=== PATIENT | female | born 1930 | race Caucasian/White ===

== ENCOUNTER 2016-12-31 21:17 | Emergency (ER) | payer MEDICARE, OTHER ==
[~2016-12-31] VITALS: Ht 154.9 cm; Wt 63.5 kg
[2016-12-31 21:17] VITALS: BP 163/62
[~2016-12-31 21:17] MED LIST: ASPI325T8 PO; METO25TA4 PO; OMEP40CA5 PO
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
[2016-12-31 21:58] LABS: BASO % 1 % (0-3); EOS # 0.2 x10^3/uL (0.0-0.7); EOS % 4 % (0-3); HEMATOCRIT 39.1 % (36.0-47.0); HEMOGLOBIN 13.7 g/dL (12.0-15.5); LYMPH # 1.8 x10^3/uL (1.0-4.8); LYMPH % 28 % (24-48); MEAN CORPUSCULAR HEMOGLOBIN 35 pg (25-35); MEAN CORPUSCULAR HGB CONC 35 g/dL (31-37); MEAN CORPUSCULAR VOLUME 99 fL (79-100); MONO # 0.5 x10^3/uL (0.0-1.1); MONO % 8 % (0-9); NEUT # 3.9 x10^3uL (1.8-7.7); NEUT % 60 % (31-73); PLATELET COUNT 149 x10^3/uL (140-400); RED BLOOD COUNT 3.96 x10^6/uL (3.50-5.40); RED CELL DISTRIBUTION WIDTH 13.3 % (11.5-14.5); WHITE BLOOD COUNT 6.4 x10^3/uL (4.0-11.0)
[2016-12-31 22:20] LABS: ALBUMIN 3.7 g/dL (3.4-5.0); ALBUMIN/GLOBULIN RATIO 1.3 (1.0-1.7); CALCIUM 9.4 mg/dL (8.5-10.1); DIRECT BILIRUBIN 0.2 mg/dL (0.0-0.2); GFR 52.8; POTASSIUM 3.6 mmol/L (3.5-5.1); TOTAL BILIRUBIN 0.5 mg/dL (0.2-1.0); TOTAL PROTEIN 6.6 g/dL (6.4-8.2)
[2016-12-31 22:39] LABS: BARBITURATES NEG (NEG); BENZODIAZEPINES NEG (NEG); CANNABINOIDS NEG (NEG); COCAINE NEG (NEG); METHADONE NEG (NEG); OPIATES NEG (NEG); PHENCYCLIDINE NEG (NEG)
[2016-12-31 22:40] LABS: AMPHETAMINE/METHAMPHETAMINE NEG (NEG)
--- NOTE | 2016-12-31 22:42 | RAD ---
Examination: CT head and cervical spine without contrast HISTORY: History of recent falls, cerebrovascular accident COMPARISON: None available TECHNIQUE: Axial CT images of the head was performed without contrast. Axial CT images of the cervical spine were performed without contrast. Coronal and sagittal deformities of the cervical spine were performed In addition to direct observation, computer aided detection was utilized with iCAD Second Look 7.2-H. distended FINDINGS: There is no evidence of midline shift. There is no acute intracranial bleed or extra-axial fluid collection identified. Moderate bilateral periventricular white matter hypodensities likely chronic small vessel ischemic disease There is a linear hypodensity identified in the right frontal lobe in the right parasagittal region, age indeterminate infarct. There is subtle serpiginous hyperdensity identified along the gyrus of the right frontal lobe adjacent to the hypodensity, possibly thin appearing freitas matter due to adjacent hypodensity. The basal cisterns are uneffaced. The visualized paranasal sinuses, left mastoid air cells are clear. Surgical changes identified in the right mastoid The cervical vertebral body heights are maintained the bilateral facets are maintained Moderate intervertebral disc height loss identified at C5-C6, C6-C7 vertebral levels No evidence of prevertebral soft tissue swelling identified. The apical lungs are clear. IMPRESSION: 1.Linear hypodensity identified in the right frontal lobe in the right parasagittal region, age indeterminate infarct. Recommend follow-up MRI brain, if there is clinical concern for infarct. 2. No acute fracture cervical spine. Correlate clinically. 3. Moderate degenerative changes cervical spine. Electronically signed by: Ashvin Martin MD (12/31/2016 10:39 PM) [facility]
[2016-12-31] MEDS ORDERED: RESOURCE PO (22:45)
[2016-12-31] MEDS ORDERED: ATORVASTATIN CA80 MG PO (22:45)
[2016-12-31] MEDS ORDERED: DONE5TAB56 PO (22:45)
[2016-12-31] MEDS ORDERED: HALO5AMP2 IM (22:45)
[2016-12-31] MEDS ORDERED: AMLO2.5T2 PO (22:45)
[2016-12-31] MEDS ORDERED: POLY119P4 PO (22:45)
[2016-12-31 22:52] LABS: BILIRUBIN,URINE NEG (NEG); CLARITY,URINE HAZY; COLOR,URINE YELLOW; GLUCOSE,URINE NEG (NEG)
[2016-12-31 22:53] LABS: AMORPHOUS SEDIMENT,UR PRESENT /HPF; BACTERIA,URINE MANY /HPF (0-FEW); NITRITE,URINE NEG (NEG); RBC,URINE 20-40 /HPF (0-2); SQUAMOUS EPITHELIAL CELL,UR FEW /LPF; UROBILINOGEN,URINE 4 mg/dL (0.2 mg/dL)
[2016-12-31] MEDS ORDERED: CEPHALEXIN 250 MG CAPSULE PO ONE (23:15)
[2016-12-31] MEDS ORDERED: ASPIRIN 325 MG TABLET PO ONE (23:15)
[2017-01-01] MEDS ORDERED: WARFARIN 5 MG TABLET. PO ONE
[2017-01-01] MEDS ORDERED: ENOXAPARIN 40 MG/0.4 ML DISP.SYRIN. SQ ONE
[2017-01-01] MEDS ORDERED: WARF1TAB74 PO (00:04)
--- NOTE | 2017-01-01 06:29 | EKG ---
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
--- NOTE | 2017-01-01 08:09 | RAD ---
Portable chest, 12/31/2016: History: Fall Comparison is made to a study from 04/18/2006. The heart size and pulmonary vascularity are normal. There is calcific plaquing of the aorta. No pulmonary infiltrates are seen. There is no evidence of pleural fluid. IMPRESSION: No acute cardiopulmonary abnormality is detected.
== END 2017-01-01 01:25 | disposition home or self-care (01) ==
LOC: ER 21:17
DX: R41.82 Altered mental status, unspecified (principal); F98.9 Unspecified behavioral and emotional disorders with onset usually occurring in childhood and adolescence; N39.0 Urinary tract infection, site not specified; F03.90 Unspecified dementia, unspecified severity, without behavioral disturbance, psychotic disturbance, mood disturbance, and anxiety; I25.10 Atherosclerotic heart disease of native coronary artery without angina pectoris; I48.91 Unspecified atrial fibrillation; I69.359 Hemiplegia and hemiparesis following cerebral infarction affecting unspecified side; K21.9 Gastro-esophageal reflux disease without esophagitis; R79.1 Abnormal coagulation profile
CPT/HCPCS: 36415; 70450; 71010; 72125; 80053; 80076; 80307; 81001; 83690; 83735; 83880; 84443; 84484; 85025; 85610; 85730; 87086; 93005; 96372; 99285; J1650; G0479

== ENCOUNTER 2017-01-17 21:42 | Emergency (ER) | payer MEDICARE, OTHER ==
[~2017-01-17] VITALS: Ht 165.1 cm; Wt 62.6 kg
[~2017-01-17 21:42] MED LIST changes: +AMLO2.5T2 PO; +ATORVASTATIN CA80 MG PO; +DONE5TAB56 PO; +HALO5AMP2 IM; +POLY119P4 PO; +RESOURCE PO; +WARF1TAB74 PO
--- NOTE | 2017-01-17 22:06 | RAD ---
CT head without contrast dated 01/17/2017 9:57 PM Indication: Left facial weakness. Left facial weakness. Comparison: 12/31/2016. Technique: Contiguous axial imaging the head performed from skull base to vertex. One or more of the following individualized dose reduction techniques were utilized for this examination: 1. Automated exposure control 2. Adjustment of the mA and/or kV according to patient size 3. Use of iterative reconstruction technique Findings: Ventricles and sulci are mildly prominent for age. No midline shift or mass effect. Focal zone of low density at the parasagittal inferior right frontal lobe is similar to prior study. Mild patchy low density throughout the deep/subcortical periventricular white matter, unchanged. No hemorrhage or extra-axial collection. Posterior fossa and brainstem unremarkable. Visualized paranasal sinuses and mastoid air cells are clear. There is evidence of prior mastoidectomy on the right. No acute calvarial abnormality. IMPRESSION: 1. No evidence of acute intracranial hemorrhage or mass. 2. Evolving cortical infarct of the parasagittal right frontal lobe. 3. Mild chronic small vessel ischemic changes and atrophy. 4. No CT evidence of acute CVA. If there is persistent clinical concern for evolving infarct, MRI could better evaluate. Electronically signed by: Bobby Galvan MD (01/17/2017 10:03 PM) [facility]
[2017-01-17] MEDS ORDERED: CONTRAST GIVEN MC PRN (22:15)
[2017-01-17] MEDS ORDERED: IOHEXOL 300 MG/ML 75 ML VIAL. IV ONE (22:15)
[2017-01-17 22:25] LABS: BASO % 1 % (0-3); EOS # 0.2 x10^3/uL (0.0-0.7); EOS % 4 % (0-3); HEMATOCRIT 34.4 % (36.0-47.0); HEMOGLOBIN 12.4 g/dL (12.0-15.5); LYMPH # 1.4 x10^3/uL (1.0-4.8); LYMPH % 29 % (24-48); MEAN CORPUSCULAR HEMOGLOBIN 35 pg (25-35); MEAN CORPUSCULAR HGB CONC 36 g/dL (31-37); MEAN CORPUSCULAR VOLUME 97 fL (79-100); MONO # 0.4 x10^3/uL (0.0-1.1); MONO % 7 % (0-9); NEUT % 60 % (31-73); PLATELET COUNT 120 x10^3/uL (140-400); RED BLOOD COUNT 3.54 x10^6/uL (3.50-5.40); RED CELL DISTRIBUTION WIDTH 13.1 % (11.5-14.5)
[2017-01-17 22:43] LABS: BILIRUBIN,URINE NEG (NEG); CLARITY,URINE HAZY; COLOR,URINE YELLOW; GLUCOSE,URINE NEG (NEG); NITRITE,URINE NEG (NEG)
[2017-01-17 22:43] LABS: ALBUMIN 3.6 g/dL (3.4-5.0); CREATININE 0.9 mg/dL (0.6-1.0); DIRECT BILIRUBIN 0.1 mg/dL (0.0-0.2); GFR 59.7; POTASSIUM 3.6 mmol/L (3.5-5.1); TOTAL BILIRUBIN 0.4 mg/dL (0.2-1.0); TOTAL PROTEIN 6.3 g/dL (6.4-8.2)
[2017-01-17 22:44] LABS: BACTERIA,URINE 0 /HPF (0-FEW); SQUAMOUS EPITHELIAL CELL,UR MANY /LPF; UROBILINOGEN,URINE 2 mg/dL (0.2 mg/dL)
[2017-01-17 23:10] VITALS: BP 172/67
--- NOTE | 2017-01-17 23:38 | RAD ---
INDICATION: FACIAL ASYMETRY COMPARISON: CT head from earlier same day and December 31, 2016 TECHNIQUE: Axial CT images obtained through the head and neck arterial vasculature with intravenous contrast. Three-dimensional images process per protocol. Estimates of carotid stenosis based on criteria that correlate with NASCET. One or more of the following individualized dose reduction techniques were utilized for this examination: 1. Automated exposure control; 2. Adjustment of the mA and/or kV according to patient size; 3. Use of iterative reconstruction technique. FINDINGS: Neck angiography: Left vertebral artery is patent. Right vertebral artery is patent. Left common carotid arteries patent. Left internal carotid artery and proximal external carotid artery patent. There is regions of plaque including at the left carotid bulb. Right internal carotid artery patent. Right common carotid artery patent with some plaque seen at the bulb. Proximal right external carotid arteries patent. Brain angiography: Basilar artery is patent. There is a suspected region of narrowing at the proximal left DRUG ABUSE TECHNICIAN of approximately 50 percent. There are other suspected regions of narrowing within the left DRUG ABUSE TECHNICIAN with some of them possibly greater than 50 percent but difficult evaluation given the small size the vessel. The right DRUG ABUSE TECHNICIAN is predominantly fed through the [place] from right MCA territory. The right proximal DRUG ABUSE TECHNICIAN appears to have vascular flow within fed from the basilar artery with either atresia or occlusion of the vessel proximally. The distal portion of the vessel is fed either from right DRUG ABUSE TECHNICIAN or collateral formation. Proximal left MCA is patent. Proximal right MCA patent. There are some regions of plaque within the right MCA with less than 50 percent stenosis. Occlusion or high-grade stenosis of the right anterior cerebral artery proximally with some trickle of flow seen more distally. Other findings: Repeat demonstration of low-attenuation within the right frontal region. Probable mucocele or polyp left maxillary sinus. There are multiple nodules at the lung apices bilaterally measuring up to about 5 mm. There are some subcentimeter right lobe of thyroid nodules. Degenerative changes of the spine. Resection or automastoidectomy changes on the right. IMPRESSION: Repeat demonstration of a region of low-attenuation within the right frontal region which can be seen with a stroke in evolution. Within this region there is either focal occlusion or multifocal regions of high grade stenosis of the right anterior cerebral artery. The right posterior cerebral artery territory is predominantly fed through the [place] which could be secondary to atresia of the proximal aspect of the right posterior cerebral artery with origin of right DRUG ABUSE TECHNICIAN although it is also possible that this is secondary to collateral flow to the right DRUG ABUSE TECHNICIAN territory from occlusion of the proximal aspect of the right DRUG ABUSE TECHNICIAN of unknown age. MRI could better evaluate for acuity of these findings. There are couple of right lobe of thyroid nodules. Ultrasound could better evaluate if more complete characterization is desired. There are couple of lung nodules at the apices measuring up to about 5 mm. Multifocal plaque throughout the vessels. Fleischner Society recommendations for solitary solid lung nodule follow up.: In a low risk patient: <6mm - No follow up required. 6-8mm - 6-[address], then CT at 18-24 months. >8mm - CT at 3 months, PET/CT or tissue sampling. In a high risk patient (history of smoking or other known risk factors): <6mm - Follow up CT at 12 months. 6-8mm - 6-[address], then CT at 18-24 months. >8mm - CT at 3 months, PET/CT or tissue sampling. Fleischner Society recommendations for multiple solid lung nodule follow up.: In a low risk patient: <6mm - No follow up required. 6-8mm - 3-[address], then CT at 18-24 months. >8mm - CT at 3-6 months, then at 18-24 months. PET/CT or tissue sampling based on most suspicious nodule. In a high risk patient (history of smoking or other known risk factors): <6mm - Follow up CT at 12 months. 6-8mm - 3-[address], then CT at 18-24 months. >8mm - CT at 3-6 months, PET/CT or tissue sampling option based on most suspicious nodule.. Electronically signed by: Satish Hardy MD (01/17/2017 11:35 PM) [facility]
--- NOTE | 2017-01-18 02:44 | PHYS DOC ---
Past History Past Medical History: A-Fib, CAD, CVA, Dementia, Depression, GERD, High Cholesterol, Hypertension, UTI, Other Past Surgical History: Other Smoking: Non-smoker Alcohol Use: None Drug Use: None Adult General Chief Complaint Chief Complaint: FACE PROBLEM HPI HPI 86-year-old female presenting to the emergency department after family noticed the patient smile was noticed to be asymmetric. This started around 8 PM. Her family brings her in. Last known normal at 8 PM. Patient just recently stopped taking warfarin and began taking Eliquis and is currently anticoagulated. She denies vision changes or weakness of the upper or lower extremities. She denies slurred speech. Location face. Duration constant. No alleviating or exacerbating factors present. The patient does have a history of strokes. Review of systems is negative for chest pain shortness of breath abdominal pain nausea vomiting fevers or chills. All other review of systems is negative unless otherwise noted in history of present illness. ED course: 86-year-old female presenting to the emergency department today with facial asymmetry. Code stroke initiated immediately. Head CT along with CT angiography ordered. Blood work and urinalysis. EKG obtained. NIH stroke scale obtained and calculated to be 1 based on slight facial asymmetry. Otherwise the patient is neurologically intact. TPA administration not initiated due to the patient currently being on anticoagulants including recently stopping warfarin but currently taking Eliquis. Patient reports taking it this morning. Otherwise workup was unremarkable. I discussed the case with [facility] neurologist and transferring doctor Dr. Diop. They agree with not administering TPA. CT of the head was suggestive of evolving cortical stroke. Angiography shows possible INTERNAL [employer]OLS CONSULTANT occlusion versus anomaly and possible focal occlusion of the right anterior cerebral artery. The patient was then transferred to [facility] for further stroke care. Review of Systems Review of Systems SEE ABOVE Current Medications Current Medications Current Medications Medications (Trade) Dose Ordered Sig/Willa Start Time Stop Time Status Last Admin Dose Admin Info (Do NOT chart on this entry -- for MONITORING) 1 each PRN DAILY PRN 01/17/17 22:15 01/18/17 01:15 DC Iohexol (Omnipaque 300 Mg/ml) 75 ml 1X ONCE 01/17/17 22:15 01/17/17 22:16 DC 01/17/17 22:28 60 ML Allergies Allergies Allergies Coded Allergies Type Severity Reaction Last Updated Verified No Known Drug Allergies 4/19/14 No Physical Exam Physical Exam Constitutional: Well developed, well nourished, no acute distress, non-toxic appearance. [] HENT: Normocephalic, atraumatic, bilateral external ears normal, oropharynx moist, no oral exudates, nose normal. [] Eyes: PERRLA, EOMI, conjunctiva normal, no discharge. [] Neck: Normal range of motion, no tenderness, supple, no stridor. [] Cardiovascular:Heart rate regular rhythm, no murmur [] Lungs & Thorax: Bilateral breath sounds clear to auscultation [] Abdomen: Bowel sounds normal, soft, no tenderness, no masses, no pulsatile masses. [] Skin: Warm, dry, no erythema, no rash. [] Back: No tenderness, no CVA tenderness. [] Extremities: No tenderness, no cyanosis, no clubbing, ROM intact, no edema. [] Neurologic: Mental status: Awake oriented and alert x3 Cranial nerves: Extraocular movements intact, eyebrows viviana bilaterally smile shows mild asymmetry but pt is able to raise eyebrows, uvula elevation, shoulder shrug intact, tongue protrusion normal DTRs: 2+ Sensation: equal and normal in all extremities Strength: 5/5 in upper and lower extremities bilaterally Psychologic: Affect normal, judgement normal, mood normal. [] Current Patient Data Vital Signs Vital Signs Date Time Temp Pulse Resp B/P (MAP) Pulse Ox O2 Delivery O2 Flow Rate FiO2 01/17/17 23:10 59 20 172/67 (102) 97 Room Air 01/17/17 21:45 98.3 Lab Results Laboratory Tests Test 01/17/17 21:50 01/17/17 22:05 Urine Collection Type Unknown Urine Color Yellow Urine Clarity Hazy Urine pH 6.5 Urine Specific [place] 1.025 Urine Protein Neg (NEG-TRACE) Urine Glucose (UA) Neg mg/dL (NEG) Urine Ketones (Stick) Neg mg/dL (NEG) Urine Blood Trace (NEG) Urine Nitrite Neg (NEG) Urine Bilirubin Neg (NEG) Urine Urobilinogen Dipstick 2 mg/dL (0.2 mg/dL) Urine Leukocyte Esterase Trace (NEG) Urine RBC 6-10 /HPF (0-2) Urine WBC 11-20 /HPF (0-4) Urine Squamous Epithelial Cells Many /LPF Urine Bacteria 0 /HPF (0-FEW) Urine Mucus Marked /LPF White Blood Count 5.0 x10^3/uL (4.0-11.0) Red Blood Count 3.54 x10^6/uL (3.50-5.40) Hemoglobin 12.4 g/dL (12.0-15.5) Hematocrit 34.4 % (36.0-47.0) L Mean Corpuscular Volume 97 fL (79-100) Mean Corpuscular Hemoglobin 35 pg (25-35) Mean Corpuscular Hemoglobin Concent 36 g/dL (31-37) Red Cell Distribution Width 13.1 % (11.5-14.5) Platelet Count 120 x10^3/uL (140-400) L Neutrophils (%) (Auto) 60 % (31-73) Lymphocytes (%) (Auto) 29 % (24-48) Monocytes (%) (Auto) 7 % (0-9) Eosinophils (%) (Auto) 4 % (0-3) H Basophils (%) (Auto) 1 % (0-3) Neutrophils # (Auto) 3.0 x10^3uL (1.8-7.7) Lymphocytes # (Auto) 1.4 x10^3/uL (1.0-4.8) Monocytes # (Auto) 0.4 x10^3/uL (0.0-1.1) Eosinophils # (Auto) 0.2 x10^3/uL (0.0-0.7) Basophils # (Auto) 0.0 x10^3/uL (0.0-0.2) Prothrombin Time 11.0 SEC (9.4-11.4) Prothrombin Time INR 1.1 (0.9-1.1) PTT 25 SEC (23-33) Sodium Level 146 mmol/L (136-145) H Potassium Level 3.6 mmol/L (3.5-5.1) Chloride Level 110 mmol/L (98-107) H Carbon Dioxide Level 30 mmol/L (21-32) Anion Gap 6 (6-14) Blood Urea Nitrogen 18 mg/dL (7-20) Creatinine 0.9 mg/dL (0.6-1.0) Estimated GFR (Cockcroft-Gault) 59.7 Glucose Level 117 mg/dL (70-99) H Lactic Acid Level 1.1 mmol/L (0.4-2.0) Calcium Level 9.0 mg/dL (8.5-10.1) Total Bilirubin 0.4 mg/dL (0.2-1.0) Direct Bilirubin 0.1 mg/dL (0.0-0.2) Aspartate Amino Transferase (AST) 23 U/L (15-37) Alanine Aminotransferase (ALT) 38 U/L (14-59) Alkaline Phosphatase 90 U/L (46-116) Troponin I Quantitative < 0.017 ng/mL (0-0.055) QO-Wap-L-Type Natriuretic Peptide 424 pg/mL (0-449) Total Protein 6.3 g/dL (6.4-8.2) L Albumin 3.6 g/dL (3.4-5.0) Lipase 191 U/L (73-393) EKG EKG [] Radiology/Procedures Radiology/Procedures [] Course & Med Decision Making Course & Med Decision Making Pertinent Labs and Imaging studies reviewed. (See chart for details) [] Dragon Disclaimer Dragon Disclaimer This chart was dictated in whole or in part using Voice Recognition software in a busy, high-work load, and often noisy Emergency Department environment. It may contain unintended and wholly unrecognized errors or omissions. Departure Departure: Impression: Primary Impression: Cerebrovascular accident (CVA) involving anterior circulation ... Disposition: XFER SHT-TRM HOSP Condition: GUARDED CHANDRAKANT AKHTAR MD Jan 18, 2017 02:44
--- NOTE | 2017-01-18 06:21 | EKG ---
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
== END 2017-01-18 01:13 | disposition short-term general hospital (02) ==
LOC: ER 21:42
DX: I63.8 Other cerebral infarction (principal); E78.00 Pure hypercholesterolemia, unspecified; I10 Essential (primary) hypertension; I25.10 Atherosclerotic heart disease of native coronary artery without angina pectoris; K21.9 Gastro-esophageal reflux disease without esophagitis; I48.91 Unspecified atrial fibrillation; F03.90 Unspecified dementia, unspecified severity, without behavioral disturbance, psychotic disturbance, mood disturbance, and anxiety; Z86.73 Personal history of transient ischemic attack (TIA), and cerebral infarction without residual deficits
CPT/HCPCS: 36415; 70450; 70496; 70498; 80048; 80076; 81001; 83605; 83690; 83880; 84484; 85025; 85610; 85730; 87086; 93005; 99285; Q9967

== ENCOUNTER 2017-02-17 16:10 | Emergency (ER) | payer MEDICARE, OTHER ==
[~2017-02-17] VITALS: Ht 165.1 cm; Wt 54.4 kg
--- NOTE | 2017-02-17 16:55 | RAD ---
Examination: PA view of the chest with left RIBS History: History of fall, bruising, history of rib fracture Comparison: None available Findings: The cardiomediastinal silhouette grossly appears unremarkable. There is no acute infiltrate or pneumothorax. No evidence of displaced left rib identified. Impression: 1. No acute cardiopulmonary findings. No evidence of displaced rib fracture.
[2017-02-17] MEDS ORDERED: traMADol/APAP 37.5/325 1 TAB TABLET PO ONE (17:00)
[2017-02-17] MEDS ORDERED: TRAM50TA PO (17:01)
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
[2017-02-17 17:15] VITALS: BP 152/67
== END 2017-02-17 17:20 | disposition home or self-care (01) ==
LOC: ER 16:10
DX: S30.1XXA Contusion of abdominal wall, initial encounter (principal); S20.212A Contusion of left front wall of thorax, initial encounter; I48.2 Chronic atrial fibrillation; I25.10 Atherosclerotic heart disease of native coronary artery without angina pectoris; K21.9 Gastro-esophageal reflux disease without esophagitis; E78.00 Pure hypercholesterolemia, unspecified; I10 Essential (primary) hypertension; I25.2 Old myocardial infarction; F03.90 Unspecified dementia, unspecified severity, without behavioral disturbance, psychotic disturbance, mood disturbance, and anxiety; F32.9 Major depressive disorder, single episode, unspecified; Z86.73 Personal history of transient ischemic attack (TIA), and cerebral infarction without residual deficits; Z79.01 Long term (current) use of anticoagulants; W06.XXXA Fall from bed, initial encounter; Y93.89 Activity, other specified; Y99.8 Other external cause status; Y92.008 Other place in unspecified non-institutional (private) residence as the place of occurrence of the external cause
CPT/HCPCS: 71101; 99284

== ENCOUNTER 2017-06-06 14:52 | Inpatient (IN) | payer MEDICARE, OTHER ==
[~2017-06-06] VITALS: Ht 165.1 cm; Wt 70.3 kg
[~2017-06-06 14:52] MED LIST changes: +TRAM50TA PO
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
[2017-06-06 17:07] LABS: BASO % 1 % (0-3); EOS # 0.1 x10^3/uL (0.0-0.7); EOS % 1 % (0-3); HEMATOCRIT 40.6 % (36.0-47.0); HEMOGLOBIN 13.8 g/dL (12.0-15.5); LYMPH # 0.9 x10^3/uL (1.0-4.8); LYMPH % 15 % (24-48); MEAN CORPUSCULAR HEMOGLOBIN 34 pg (25-35); MEAN CORPUSCULAR HGB CONC 34 g/dL (31-37); MEAN CORPUSCULAR VOLUME 99 fL (79-100); MONO # 0.4 x10^3/uL (0.0-1.1); MONO % 7 % (0-9); NEUT # 4.7 x10^3uL (1.8-7.7); NEUT % 76 % (31-73); PLATELET COUNT 133 x10^3/uL (140-400); RED BLOOD COUNT 4.09 x10^6/uL (3.50-5.40); RED CELL DISTRIBUTION WIDTH 13.5 % (11.5-14.5); WHITE BLOOD COUNT 6.2 x10^3/uL (4.0-11.0)
[2017-06-06 17:21] LABS: ALBUMIN 3.9 g/dL (3.4-5.0); ALBUMIN/GLOBULIN RATIO 1.3 (1.0-1.7); CALCIUM 9.2 mg/dL (8.5-10.1); GFR 52.8; POTASSIUM 3.4 mmol/L (3.5-5.1); TOTAL BILIRUBIN 0.4 mg/dL (0.2-1.0)
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
[2017-06-06 17:40] LABS: BILIRUBIN,URINE NEG (NEG); CLARITY,URINE CLEAR; COLOR,URINE YELLOW; GLUCOSE,URINE NEG (NEG); NITRITE,URINE NEG (NEG); UROBILINOGEN,URINE 0.2 mg/dL (0.2 mg/dL)
[2017-06-06 17:41] LABS: BACTERIA,URINE FEW /HPF (0-FEW); SQUAMOUS EPITHELIAL CELL,UR MANY /LPF
[2017-06-06] MEDS ORDERED: OMEG-33 PO (23:23)
[2017-06-06] MEDS ORDERED: ATOR40TA59 PO (23:23)
[2017-06-07 01:00] VITALS: BP 180/88
[2017-06-07 06:03] VITALS: BP 140/44
[2017-06-07] MEDS ORDERED: OMEG-33 PO (08:24)
[2017-06-07 08:32] VITALS: BP 180/80
[2017-06-07] MEDS: METOPROLOL TART IMMED RELEASE 25 MG TABLET PO SCH ×2 (08:33→20:56)
[2017-06-07] MEDS ORDERED: amLODIPine BESYLATE 2.5 MG TABLET PO SCH (09:00)
[2017-06-07 10:07] VITALS: BP 137/69
[2017-06-07 14:24] LABS: THYROID STIM HORMONE (TSH) 1.016 uIU/mL (0.358-3.740)
[2017-06-07 16:32] VITALS: BP 180/65
[2017-06-07] MEDS: OMEGA-3 FATTY ACIDS/FISH OIL 1,000 MG CAPSULE. PO SCH (17:14)
[2017-06-07 17:50] VITALS: BP 142/80
[2017-06-07] MEDS: CHOLECALCIFEROL (VITAMIN D3) 50,000 UNIT CAPSULE PO SCH (20:58)
[2017-06-07] MEDS: ATORVASTATIN CALCIUM 20 MG TABLET PO SCH (20:58)
[2017-06-07 21:11] LABS: T3 TOTAL 96 ng/dL (71-180); THYROXINE 6.4 ug/dL (4.5-12.0)
--- NOTE | 2017-06-07 22:38 | PDOC ---
Exam Note: Santhosh Note: Please also refer to the separate dictated note~for this date of service dictated separately.~Patient seen individually. Discussed the patient with Nursing staff reviewed the chart.~Reviewed interim history and current functioning. Reviewed vital signs,~Labs/ Radiology~and current medications noted below. Continue current treatment with the changes noted in the dictated addendum note Assessment: Vital Signs: Vital Signs Date Time Temp Pulse Resp B/P (MAP) Pulse Ox O2 Delivery O2 Flow Rate FiO2 06/07/17 20:56 86 142/80 06/07/17 16:32 97.6 16 99 06/07/17 01:00 Room Air Labs: Laboratory Tests Test 06/07/17 01:40 Prothrombin Time 11.0 SEC (9.4-11.4) Prothrombin Time INR 1.1 (0.9-1.1) Current Medications: Meds: Current Medications Amlodipine Besylate (Norvasc) 2.5 mg DAILY PO Last administered on 06/07/17 08 :34; Start 06/07/17 at 09:00; Stop 06/07/17 at 18:17; Status DC Metoprolol Tartrate (Lopressor) 12.5 mg BID PO Last administered on 06/07/17at 20:56; Start 06/07/17 at 09:00 Atorvastatin Calcium (Lipitor) 40 mg QHS PO Last administered on 06/07/17at 20: 58; Start 06/07/17 at 21:00 Fish Oil (Fish Oil) 1,000 mg QPM PO Last administered on 06/07/17at 17:14; Start 06/07/17 at 18:00 Fish Oil (Fish Oil) 1,000 mg QODAY PO ; Start 06/09/17 at 09:00 Amlodipine Besylate (Norvasc) 5 mg DAILY PO ; Start 06/08/17 at 09:00 Vitamin D (Vitamin D3) 50,000 unit WEEKLY PO Last administered on 06/07/17at 20: 58; Start 06/07/17 at 19:00 Active Scripts Active Reported [place] 3 1,000 Mg Softgel ([place]-3 Fatty Acids/Fish Oil) 1 Each Capsule 1 Each PO QODAY [place] 3 1,000 Mg Softgel ([place]-3 Fatty Acids/Fish Oil) 1 Each Capsule 1,000 Mg PO QPM Atorvastatin Calcium 40 Mg Tablet 40 Mg PO QHS Norvasc (Amlodipine Besylate) 2.5 Mg Tablet 2.5 Mg PO DAILY Metoprolol Tartrate 25 Mg Tablet 12.5 Mg PO BID I have reviewed the current psychotropics carefully including drug interactions. Risk benefit ratio favors no change other than as noted in my dictated progress note. 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
[2017-06-08 02:08] LABS: HEMOGLOBIN A1C 5.3 % (4.8-5.6)
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
[2017-06-08 07:15] VITALS: BP 196/82
[2017-06-08] MEDS: amLODIPine BESYLATE 5 MG TABLET PO SCH (08:04)
[2017-06-08] MEDS: METOPROLOL TART IMMED RELEASE 25 MG TABLET PO SCH ×3 (08:04→21:00)
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
[2017-06-08 16:03] VITALS: BP 131/64
[2017-06-08] MEDS: OMEGA-3 FATTY ACIDS/FISH OIL 1,000 MG CAPSULE. PO SCH ×3 (18:02→19:54)
[2017-06-08] MEDS: ATORVASTATIN CALCIUM 20 MG TABLET PO SCH ×2 (19:54→21:00)
[2017-06-08] MEDS: QUEtiapine 25 MG TABLET. PO SCH ×2 (19:58→21:00)
--- NOTE | 2017-06-08 20:12 | PDOC ---
Exam Note: Santhosh Note: Please also refer to the separate dictated note~for this date of service dictated separately.~Patient seen individually. Discussed the patient with Nursing staff reviewed the chart.~Reviewed interim history and current functioning. Reviewed vital signs,~Labs/ Radiology~and current medications noted below. Continue current treatment with the changes noted in the dictated addendum note Assessment: Vital Signs: Vital Signs Date Time Temp Pulse Resp B/P (MAP) Pulse Ox O2 Delivery O2 Flow Rate FiO2 06/08/17 19:55 66 131/64 06/08/17 16:03 98.1 18 98 06/08/17 07:15 Room Air I&O Intake and Output 06/08/17 07:00 Intake Total 1200 ml Balance 1200 ml Intake Oral 1200 ml Current Medications: Meds: Current Medications Amlodipine Besylate (Norvasc) 2.5 mg DAILY PO Last administered on 06/07/17 08 :34; Start 06/07/17 at 09:00; Stop 06/07/17 at 18:17; Status DC Metoprolol Tartrate (Lopressor) 12.5 mg BID PO Last administered on 06/08/17at 19:55; Start 06/07/17 at 09:00 Atorvastatin Calcium (Lipitor) 40 mg QHS PO Last administered on 06/08/17 19: 54; Start 06/07/17 at 21:00 Fish Oil (Fish Oil) 1,000 mg QPM PO Last administered on 06/07/17 17:14; Start 06/07/17 at 18:00 Fish Oil (Fish Oil) 1,000 mg QODAY PO Last administered on 06/08/17 19:54; Start 06/09/17 at 09:00 Amlodipine Besylate (Norvasc) 5 mg DAILY PO Last administered on 06/08/17at 08: 04; Start 06/08/17 at 09:00 Vitamin D (Vitamin D3) 50,000 unit WEEKLY PO Last administered on 06/07/17 20: 58; Start 06/07/17 at 19:00 Olanzapine (ZyPREXA ZYDIS) 2.5 mg PRN Q2HR PRN PO PSYCHOSIS; Start 06/08/17 at 09:00 Quetiapine Fumarate (SEROquel) 12.5 mg TID@0900,1700,2100 PO Last administered on 06/08/17at 19:58; Start 06/08/17 at 21:00 Active Scripts Active Reported [place] 3 1,000 Mg Softgel ([place]-3 Fatty Acids/Fish Oil) 1 Each Capsule 1 Each PO QODAY [place] 3 1,000 Mg Softgel ([place]-3 Fatty Acids/Fish Oil) 1 Each Capsule 1,000 Mg PO QPM Atorvastatin Calcium 40 Mg Tablet 40 Mg PO QHS Norvasc (Amlodipine Besylate) 2.5 Mg Tablet 2.5 Mg PO DAILY Metoprolol Tartrate 25 Mg Tablet 12.5 Mg PO BID I have reviewed the current psychotropics carefully including drug interactions. Risk benefit ratio favors no change other than as noted in my dictated progress note. Diagnosis: Problems: (1) Dementia (2) Paranoia (psychosis) (3) Neurocognitive disorder (4) Cerebrovascular accident (CVA) involving anterior circulation of right side JESSICA SANTIAGO MD Jun 08, 2017 20:12
[2017-06-09] MEDS: METOPROLOL TART IMMED RELEASE 25 MG TABLET PO SCH ×2 (04:47→20:27)
[2017-06-09] MEDS: amLODIPine BESYLATE 5 MG TABLET PO SCH (04:48)
[2017-06-09 06:28] VITALS: BP 234/91
[2017-06-09] MEDS: OMEGA-3 FATTY ACIDS/FISH OIL 1,000 MG CAPSULE. PO SCH ×2 (09:00→17:33)
[2017-06-09] MEDS: QUEtiapine 25 MG TABLET. PO SCH ×3 (09:19→20:27)
[2017-06-09 16:49] VITALS: BP 159/61
--- NOTE | 2017-06-09 19:12 | PDOC ---
Exam Note: Santhosh Note: Please also refer to the separate dictated note~for this date of service dictated separately.~Patient seen individually. Discussed the patient with Nursing staff reviewed the chart.~Reviewed interim history and current functioning. Reviewed vital signs,~Labs/ Radiology~and current medications noted below. Continue current treatment with the changes noted in the dictated addendum note Assessment: Vital Signs: Vital Signs Date Time Temp Pulse Resp B/P (MAP) Pulse Ox O2 Delivery O2 Flow Rate FiO2 06/09/17 16:49 97.7 76 16 159/61 (93) 99 06/09/17 06:28 Room Air I&O Intake and Output 06/09/17 07:00 Intake Total 1080 ml Balance 1080 ml Intake Oral 1080 ml # Bowel Movements 1 Current Medications: Meds: Current Medications Amlodipine Besylate (Norvasc) 2.5 mg DAILY PO Last administered on 06/07/17 08 :34; Start 06/07/17 at 09:00; Stop 06/07/17 at 18:17; Status DC Metoprolol Tartrate (Lopressor) 12.5 mg BID PO Last administered on 06/09/17 04:47; Start 06/07/17 at 09:00 Atorvastatin Calcium (Lipitor) 40 mg QHS PO Last administered on 06/07/17 20: 58; Start 06/07/17 at 21:00 Fish Oil (Fish Oil) 1,000 mg QPM PO Last administered on 06/09/17 17:33; Start 06/07/17 at 18:00 Fish Oil (Fish Oil) 1,000 mg QODAY PO ; Start 06/09/17 at 09:00 Amlodipine Besylate (Norvasc) 5 mg DAILY PO Last administered on 06/09/17at 04: 48; Start 06/08/17 at 09:00 Vitamin D (Vitamin D3) 50,000 unit WEEKLY PO Last administered on 06/07/17 20: 58; Start 06/07/17 at 19:00 Olanzapine (ZyPREXA ZYDIS) 2.5 mg PRN Q2HR PRN PO PSYCHOSIS; Start 06/08/17 at 09:00 Quetiapine Fumarate (SEROquel) 12.5 mg TID@0900,1700,2100 PO Last administered on 06/09/17at 17:32; Start 06/08/17 at 21:00 Mirtazapine (Remeron) 7.5 mg QHS PO ; Start 06/09/17 at 21:00 Trazodone HCl (Desyrel) 25 mg PRN QHS PRN PO INSOMNIA, MAY REPEAT X1; Start at 18:15 Active Scripts Active Reported [place] 3 1,000 Mg Softgel ([place]-3 Fatty Acids/Fish Oil) 1 Each Capsule 1 Each PO QODAY [place] 3 1,000 Mg Softgel ([place]-3 Fatty Acids/Fish Oil) 1 Each Capsule 1,000 Mg PO QPM Atorvastatin Calcium 40 Mg Tablet 40 Mg PO QHS Norvasc (Amlodipine Besylate) 2.5 Mg Tablet 2.5 Mg PO DAILY Metoprolol Tartrate 25 Mg Tablet 12.5 Mg PO BID I have reviewed the current psychotropics carefully including drug interactions. Risk benefit ratio favors no change other than as noted in my dictated progress note. Diagnosis: Problems: (1) Dementia (2) Paranoia (psychosis) (3) Neurocognitive disorder (4) Cerebrovascular accident (CVA) involving anterior circulation of right side JESSICA SANTIAGO MD Jun 09, 2017 19:12
[2017-06-09] MEDS: ATORVASTATIN CALCIUM 20 MG TABLET PO SCH (20:24)
[2017-06-09] MEDS: MIRTAZAPINE 7.5 MG TABLET. PO SCH (20:27)
--- NOTE | 2017-06-09 23:03 | PN ---
DATE: 06/08/2017 This is a late entry for 06/08/2017 covers elements not covered in my initial note of 06/08/2017. SUBJECTIVE: I met with the patient evening of 06/08/2017. The patient is cooperative with a.m. medications, questioning the staff how much longer she had to live. She was quite agitated in the afternoon. Staff called me as an emergency. We added Zyprexa p.r.n., but she never received it. She attends physical therapy. On card recognition game, she scored 15/15, which is quite impressive to staff. She was extremely agitated in the evening of 06/08/2017, paranoid, delusional, rapid in her speech as I met with her. She had barricaded herself in her room with her roommate. REVIEW OF SYSTEMS: No CV, , pulmonary, eye, ENT system symptoms on review. Reliability poor. MENTAL STATUS EXAM: Oriented to herself. Insight, judgment, recent and remote memory, attention, concentration, fund of knowledge poor, consistent with her diagnosis mentioned in my initial note. PLAN: Continue Zyprexa p.r.n. Start Seroquel 12.5 mg 3 times a day 09:00 a.m., 05:00 p.m. and at bedtime. Consider Depakote as a mood stabilizer, Zoloft as an antidepressant and antianxiety agent. MAN April SANTIAGO MD DR: YANIV/damián JOB#: [id number] / [id number]
[2017-06-10 06:07] VITALS: BP 126/60
[2017-06-10] MEDS: amLODIPine BESYLATE 5 MG TABLET PO SCH (09:19)
[2017-06-10] MEDS: METOPROLOL TART IMMED RELEASE 25 MG TABLET PO SCH ×2 (09:21→19:23)
[2017-06-10] MEDS: QUEtiapine 25 MG TABLET. PO SCH ×3 (09:22→19:26)
[2017-06-10 15:40] VITALS: BP 130/55
[2017-06-10] MEDS: OMEGA-3 FATTY ACIDS/FISH OIL 1,000 MG CAPSULE. PO SCH (16:36)
[2017-06-10] MEDS: ATORVASTATIN CALCIUM 20 MG TABLET PO SCH (19:26)
[2017-06-10] MEDS: MIRTAZAPINE 7.5 MG TABLET. PO SCH (19:26)
--- NOTE | 2017-06-10 19:40 | PDOC ---
Exam Note: Santhosh Note: Please also refer to the separate dictated note~for this date of service dictated separately.~Patient seen individually. Discussed the patient with Nursing staff reviewed the chart.~Reviewed interim history and current functioning. Reviewed vital signs,~Labs/ Radiology~and current medications noted below. Continue current treatment with the changes noted in the dictated addendum note Assessment: Vital Signs: Vital Signs Date Time Temp Pulse Resp B/P (MAP) Pulse Ox O2 Delivery O2 Flow Rate FiO2 06/10/17 19:23 71 130/55 06/10/17 15:40 97.4 18 98 06/09/17 06:28 Room Air I&O Intake and Output 06/10/17 07:00 Intake Total 1160 ml Balance 1160 ml Intake Oral 1160 ml # Voids 1 Current Medications: Meds: Current Medications Amlodipine Besylate (Norvasc) 2.5 mg DAILY PO Last administered on 06/07/17 08 :34; Start 06/07/17 at 09:00; Stop 06/07/17 at 18:17; Status DC Metoprolol Tartrate (Lopressor) 12.5 mg BID PO Last administered on 06/10/17 19:23; Start 06/07/17 at 09:00 Atorvastatin Calcium (Lipitor) 40 mg QHS PO Last administered on 06/10/17 19: 26; Start 06/07/17 at 21:00 Fish Oil (Fish Oil) 1,000 mg QPM PO Last administered on 06/10/17 16:36; Start 06/07/17 at 18:00 Fish Oil (Fish Oil) 1,000 mg QODAY PO ; Start 06/09/17 at 09:00 Amlodipine Besylate (Norvasc) 5 mg DAILY PO Last administered on 06/10/17 09: 19; Start 06/08/17 at 09:00 Vitamin D (Vitamin D3) 50,000 unit WEEKLY PO Last administered on 06/07/17at 20: 58; Start 06/07/17 at 19:00 Olanzapine (ZyPREXA ZYDIS) 2.5 mg PRN Q2HR PRN PO PSYCHOSIS; Start 06/08/17 at 09:00 Quetiapine Fumarate (SEROquel) 12.5 mg TID@0900,1700,2100 PO Last administered on 2/15/18at 19:26; Start 06/08/17 at 21:00 Mirtazapine (Remeron) 7.5 mg QHS PO Last administered on 06/10/17at 19:26; Start 06/09/17 at 21:00 Trazodone HCl (Desyrel) 25 mg PRN QHS PRN PO INSOMNIA, MAY REPEAT X1; Start at 18:15 Active Scripts Active Reported [place] 3 1,000 Mg Softgel ([place]-3 Fatty Acids/Fish Oil) 1 Each Capsule 1 Each PO QODAY [place] 3 1,000 Mg Softgel ([place]-3 Fatty Acids/Fish Oil) 1 Each Capsule 1,000 Mg PO QPM Atorvastatin Calcium 40 Mg Tablet 40 Mg PO QHS Norvasc (Amlodipine Besylate) 2.5 Mg Tablet 2.5 Mg PO DAILY Metoprolol Tartrate 25 Mg Tablet 12.5 Mg PO BID I have reviewed the current psychotropics carefully including drug interactions. Risk benefit ratio favors no change other than as noted in my dictated progress note. 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
[2017-06-11 06:06] VITALS: BP 120/52
[2017-06-11] MEDS: QUEtiapine 25 MG TABLET. PO SCH ×3 (09:02→19:30)
[2017-06-11 09:05] VITALS: BP 139/55
[2017-06-11] MEDS: OMEGA-3 FATTY ACIDS/FISH OIL 1,000 MG CAPSULE. PO SCH ×2 (09:08→17:33)
[2017-06-11] MEDS: METOPROLOL TART IMMED RELEASE 25 MG TABLET PO SCH ×2 (09:09→19:26)
[2017-06-11] MEDS: amLODIPine BESYLATE 5 MG TABLET PO SCH (09:11)
[2017-06-11 16:11] VITALS: BP 154/61
[2017-06-11] MEDS: MIRTAZAPINE 7.5 MG TABLET. PO SCH (19:24)
[2017-06-11] MEDS: ATORVASTATIN CALCIUM 20 MG TABLET PO SCH (19:24)
--- NOTE | 2017-06-11 19:51 | PDOC ---
Exam Note: Santhosh Note: Please also refer to the separate dictated note~for this date of service dictated separately.~Patient seen individually. Discussed the patient with Nursing staff reviewed the chart.~Reviewed interim history and current functioning. Reviewed vital signs,~Labs/ Radiology~and current medications noted below. Continue current treatment with the changes noted in the dictated addendum note Assessment: Vital Signs: Vital Signs Date Time Temp Pulse Resp B/P (MAP) Pulse Ox O2 Delivery O2 Flow Rate FiO2 06/11/17 19:26 65 154/61 06/11/17 16:11 98.4 18 97 06/09/17 06:28 Room Air I&O Intake and Output 06/11/17 07:00 Intake Total 1080 ml Balance 1080 ml Intake Oral 1080 ml # Voids 1 Current Medications: Meds: Current Medications Amlodipine Besylate (Norvasc) 2.5 mg DAILY PO Last administered on 06/07/17 08 :34; Start 06/07/17 at 09:00; Stop 06/07/17 at 18:17; Status DC Metoprolol Tartrate (Lopressor) 12.5 mg BID PO Last administered on 06/11/17 19:26; Start 06/07/17 at 09:00 Atorvastatin Calcium (Lipitor) 40 mg QHS PO Last administered on 06/11/17 19: 24; Start 06/07/17 at 21:00 Fish Oil (Fish Oil) 1,000 mg QPM PO Last administered on 06/11/17 17:33; Start 06/07/17 at 18:00 Fish Oil (Fish Oil) 1,000 mg QODAY PO Last administered on 06/11/17 09:08; Start 06/09/17 at 09:00 Amlodipine Besylate (Norvasc) 5 mg DAILY PO Last administered on 06/11/17 09: 11; Start 06/08/17 at 09:00 Vitamin D (Vitamin D3) 50,000 unit WEEKLY PO Last administered on 06/07/17 20: 58; Start 06/07/17 at 19:00 Olanzapine (ZyPREXA ZYDIS) 2.5 mg PRN Q2HR PRN PO PSYCHOSIS; Start 06/08/17 at 09:00 Quetiapine Fumarate (SEROquel) 12.5 mg TID@0900,1700,2100 PO Last administered on 2/16/18at 19:30; Start 06/08/17 at 21:00 Mirtazapine (Remeron) 7.5 mg QHS PO Last administered on 06/11/17at 19:24; Start 06/09/17 at 21:00 Trazodone HCl (Desyrel) 25 mg PRN QHS PRN PO INSOMNIA, MAY REPEAT X1; Start at 18:15 Sertraline HCl (Zoloft) 25 mg DAILY PO ; Start 06/12/17 at 09:00 Active Scripts Active Reported [place] 3 1,000 Mg Softgel ([place]-3 Fatty Acids/Fish Oil) 1 Each Capsule 1 Each PO QODAY [place] 3 1,000 Mg Softgel ([place]-3 Fatty Acids/Fish Oil) 1 Each Capsule 1,000 Mg PO QPM Atorvastatin Calcium 40 Mg Tablet 40 Mg PO QHS Norvasc (Amlodipine Besylate) 2.5 Mg Tablet 2.5 Mg PO DAILY Metoprolol Tartrate 25 Mg Tablet 12.5 Mg PO BID I have reviewed the current psychotropics carefully including drug interactions. Risk benefit ratio favors no change other than as noted in my dictated progress note. Diagnosis: Problems: (1) Dementia (2) Paranoia (psychosis) (3) Neurocognitive disorder (4) Cerebrovascular accident (CVA) involving anterior circulation of right side JESSICA SANTIAGO MD Jun 11, 2017 19:51
[2017-06-12 06:45] VITALS: BP 146/63
--- NOTE | 2017-06-12 08:25 | PN ---
DATE: 06/09/2017 This late entry, 06/09/2017, covers elements not covered in my initial note of 06/09/2017. SUBJECTIVE: I met with the patient the evening of 06/09/2017. The patient did not sleep at all previous evening and we will go ahead and add trazodone 25 mg at bedtime p.r.n., may repeat x 1 to help with this. Previous night, she was extremely paranoid, noncompliant with treatment, barricaded herself in her room. At 4:45 a.m., meds had to be syringed and on 06/09/2017 in the afternoon, she was irritable, labile, certainly confused. REVIEW OF SYSTEMS: No CV, , pulmonary, eye, ENT system symptoms on review. Reliability poor. MENTAL STATUS EXAM: Oriented to herself. Insight, judgment, recent and remote memory, attention, concentration, fund of knowledge poor, consistent with her diagnosis mentioned in my initial note. IMPRESSION: Major neurocognitive disorder, Alzheimer, vascular with depression, delusion, behavioral disturbance. PLAN: Start trazodone as above and Remeron 7.5 mg p.o. at bedtime. Continue rest unchanged including Seroquel. JESSICA SANTIAGO MD DR: YANIV/damián JOB#: [id number] / [id number]
[2017-06-12] MEDS: METOPROLOL TART IMMED RELEASE 25 MG TABLET PO SCH ×2 (08:31→19:36)
[2017-06-12] MEDS: QUEtiapine 25 MG TABLET. PO SCH ×3 (08:32→19:41)
[2017-06-12] MEDS: amLODIPine BESYLATE 5 MG TABLET PO SCH (08:32)
[2017-06-12] MEDS: SERTRALINE 25 MG TABLET. PO SCH (08:33)
--- NOTE | 2017-06-12 08:44 | PN ---
DATE: 06/10/2017 This late entry 06/10/2017 covers elements not covered in my initial note 06/10/2017. The patient was staffed at treatment team meeting with entire team morning of 06/10/2017 and the patient's daughter, Deborah attended the conference. The patient's appetite 80%, sleeping average 3 hours, but previous evening slept 9-3/4 hours since we initiated Remeron. She is withdrawn, compliant with medications. Reviewed history from the daughter about her worsening confusion, delusions, tried to jump out of the car amongst other things. REVIEW OF SYSTEMS: No CV, , pulmonary, eye, ENT system symptoms on review. Reliability poor. MENTAL STATUS EXAM: Oriented to herself. Insight, judgment, recent and remote memory, attention, concentration, fund of knowledge poor, consistent with her diagnosis mentioned in my initial note. IMPRESSION: Major neurocognitive disorder, Alzheimer, vascular with depression, delusion, behavioral disturbance. Rest unchanged. PLAN: Continue psychotropics mentioned in my initial note. Seroquel, Zyprexa as p.r.n., Remeron, trazodone, and we will initiate Zoloft at 25 mg p.o. daily for mood, anxiety symptoms. JESSICA SANTIAGO MD DR: YANIV/damián JOB#: [id number] / [id number]
[2017-06-12] MEDS: OMEGA-3 FATTY ACIDS/FISH OIL 1,000 MG CAPSULE. PO SCH (17:35)
[2017-06-12 18:04] VITALS: BP 167/61
[2017-06-12] MEDS: MIRTAZAPINE 7.5 MG TABLET. PO SCH (19:33)
[2017-06-12] MEDS: ATORVASTATIN CALCIUM 20 MG TABLET PO SCH (19:33)
--- NOTE | 2017-06-12 22:29 | PDOC ---
Exam Note: Santhosh Note: Please also refer to the separate dictated note~for this date of service dictated separately.~Patient seen individually. Discussed the patient with Nursing staff reviewed the chart.~Reviewed interim history and current functioning. Reviewed vital signs,~Labs/ Radiology~and current medications noted below. Continue current treatment with the changes noted in the dictated addendum note Assessment: Vital Signs: Vital Signs Date Time Temp Pulse Resp B/P (MAP) Pulse Ox O2 Delivery O2 Flow Rate FiO2 06/12/17 19:36 62 167/61 06/12/17 18:04 98.0 16 97 06/09/17 06:28 Room Air I&O Intake and Output 06/12/17 07:00 Intake Total 720 ml Balance 720 ml Intake Oral 720 ml # Voids 1 Current Medications: Meds: Current Medications Amlodipine Besylate (Norvasc) 2.5 mg DAILY PO Last administered on 06/07/17 08 :34; Start 06/07/17 at 09:00; Stop 06/07/17 at 18:17; Status DC Metoprolol Tartrate (Lopressor) 12.5 mg BID PO Last administered on 06/12/17at 19:36; Start 06/07/17 at 09:00 Atorvastatin Calcium (Lipitor) 40 mg QHS PO Last administered on 06/12/17 19: 33; Start 06/07/17 at 21:00 Fish Oil (Fish Oil) 1,000 mg QPM PO Last administered on 06/12/17 17:35; Start 06/07/17 at 18:00 Fish Oil (Fish Oil) 1,000 mg QODAY PO Last administered on 06/11/17at 09:08; Start 06/09/17 at 09:00 Amlodipine Besylate (Norvasc) 5 mg DAILY PO Last administered on 06/12/17at 08: 32; Start 06/08/17 at 09:00 Vitamin D (Vitamin D3) 50,000 unit WEEKLY PO Last administered on 06/07/17at 20: 58; Start 06/07/17 at 19:00 Olanzapine (ZyPREXA ZYDIS) 2.5 mg PRN Q2HR PRN PO PSYCHOSIS; Start 06/08/17 at 09:00 Quetiapine Fumarate (SEROquel) 12.5 mg TID@0900,1700,2100 PO Last administered on 2/17/18at 19:41; Start 06/08/17 at 21:00 Mirtazapine (Remeron) 7.5 mg QHS PO Last administered on 06/12/17 19:33; Start 06/09/17 at 21:00 Trazodone HCl (Desyrel) 25 mg PRN QHS PRN PO INSOMNIA, MAY REPEAT X1; Start at 18:15 Sertraline HCl (Zoloft) 25 mg DAILY PO Last administered on 06/12/17at 08:33; Start 06/12/17 at 09:00 Active Scripts Active Reported [place] 3 1,000 Mg Softgel ([place]-3 Fatty Acids/Fish Oil) 1 Each Capsule 1 Each PO QODAY [place] 3 1,000 Mg Softgel ([place]-3 Fatty Acids/Fish Oil) 1 Each Capsule 1,000 Mg PO QPM Atorvastatin Calcium 40 Mg Tablet 40 Mg PO QHS Norvasc (Amlodipine Besylate) 2.5 Mg Tablet 2.5 Mg PO DAILY Metoprolol Tartrate 25 Mg Tablet 12.5 Mg PO BID I have reviewed the current psychotropics carefully including drug interactions. Risk benefit ratio favors no change other than as noted in my dictated progress note. Diagnosis: Problems: (1) Dementia (2) Paranoia (psychosis) (3) Neurocognitive disorder (4) Cerebrovascular accident (CVA) involving anterior circulation of right side JESSICA SANTIAGO MD Jun 12, 2017 22:29
[2017-06-13 06:37] VITALS: BP 173/64
[2017-06-13] MEDS: amLODIPine BESYLATE 5 MG TABLET PO SCH (08:39)
[2017-06-13] MEDS: QUEtiapine 25 MG TABLET. PO SCH ×3 (08:40→19:45)
[2017-06-13] MEDS: METOPROLOL TART IMMED RELEASE 25 MG TABLET PO SCH ×2 (08:41→19:42)
[2017-06-13] MEDS: SERTRALINE 25 MG TABLET. PO SCH (08:41)
[2017-06-13] MEDS: OMEGA-3 FATTY ACIDS/FISH OIL 1,000 MG CAPSULE. PO SCH ×2 (08:42→15:57)
[2017-06-13 16:03] VITALS: BP 147/54
[2017-06-13] MEDS: MIRTAZAPINE 7.5 MG TABLET. PO SCH (19:42)
[2017-06-13] MEDS: ATORVASTATIN CALCIUM 20 MG TABLET PO SCH (19:42)
--- NOTE | 2017-06-13 20:09 | PDOC ---
Exam Note: Santhosh Note: Please also refer to the separate dictated note~for this date of service dictated separately.~Patient seen individually. Discussed the patient with Nursing staff reviewed the chart.~Reviewed interim history and current functioning. Reviewed vital signs,~Labs/ Radiology~and current medications noted below. Continue current treatment with the changes noted in the dictated addendum note Assessment: Vital Signs: Vital Signs Date Time Temp Pulse Resp B/P (MAP) Pulse Ox O2 Delivery O2 Flow Rate FiO2 06/13/17 19:42 57 147/54 06/13/17 16:03 98.2 20 97 06/09/17 06:28 Room Air I&O Intake and Output 06/13/17 07:00 Intake Total 1080 ml Balance 1080 ml Intake Oral 1080 ml # Voids 1 Current Medications: Meds: Current Medications Amlodipine Besylate (Norvasc) 2.5 mg DAILY PO Last administered on 06/07/17 08 :34; Start 06/07/17 at 09:00; Stop 06/07/17 at 18:17; Status DC Metoprolol Tartrate (Lopressor) 12.5 mg BID PO Last administered on 06/13/17 19:42; Start 06/07/17 at 09:00 Atorvastatin Calcium (Lipitor) 40 mg QHS PO Last administered on 06/13/17 19: 42; Start 06/07/17 at 21:00 Fish Oil (Fish Oil) 1,000 mg QPM PO Last administered on 06/13/17 15:57; Start 06/07/17 at 18:00 Fish Oil (Fish Oil) 1,000 mg QODAY PO Last administered on 06/13/17 08:42; Start 06/09/17 at 09:00 Amlodipine Besylate (Norvasc) 5 mg DAILY PO Last administered on 06/13/17 08: 39; Start 06/08/17 at 09:00 Vitamin D (Vitamin D3) 50,000 unit WEEKLY PO Last administered on 06/07/17 20: 58; Start 06/07/17 at 19:00 Olanzapine (ZyPREXA ZYDIS) 2.5 mg PRN Q2HR PRN PO PSYCHOSIS; Start 06/08/17 at 09:00 Quetiapine Fumarate (SEROquel) 12.5 mg TID@0900,1700,2100 PO Last administered on 06/13/17at 19:45; Start 06/08/17 at 21:00 Mirtazapine (Remeron) 7.5 mg QHS PO Last administered on 06/13/17at 19:42; Start 06/09/17 at 21:00 Trazodone HCl (Desyrel) 25 mg PRN QHS PRN PO INSOMNIA, MAY REPEAT X1; Start at 18:15 Sertraline HCl (Zoloft) 25 mg DAILY PO Last administered on 06/13/17at 08:41; Start 06/12/17 at 09:00 Active Scripts Active Reported [place] 3 1,000 Mg Softgel ([place]-3 Fatty Acids/Fish Oil) 1 Each Capsule 1 Each PO QODAY [place] 3 1,000 Mg Softgel ([place]-3 Fatty Acids/Fish Oil) 1 Each Capsule 1,000 Mg PO QPM Atorvastatin Calcium 40 Mg Tablet 40 Mg PO QHS Norvasc (Amlodipine Besylate) 2.5 Mg Tablet 2.5 Mg PO DAILY Metoprolol Tartrate 25 Mg Tablet 12.5 Mg PO BID I have reviewed the current psychotropics carefully including drug interactions. Risk benefit ratio favors no change other than as noted in my dictated progress note. Diagnosis: Problems: (1) Dementia (2) Paranoia (psychosis) (3) Neurocognitive disorder (4) Cerebrovascular accident (CVA) involving anterior circulation of right side JESSICA SANTIAGO MD Jun 13, 2017 20:09
--- NOTE | 2017-06-13 22:29 | PN ---
DATE: 06/11/2017 PSYCHIATRIC PROGRESS NOTE This is a late entry for 06/11/2017 covers elements not covered in my initial note of 06/11/2017. HISTORY OF PRESENT ILLNESS: I met with the patient evening of 06/11/2017. The patient remains confused, compliant with medications and coming out to the day room, less paranoid. All of this is an improvement. She attended the exercise group. Family visited, they are going to visit on 06/12/2017. REVIEW OF SYSTEMS: No CV, , pulmonary, eye, ENT system symptoms on review. Reliability poor. MENTAL STATUS EXAM: Oriented to herself. Insight, judgment, recent and remote memory, attention, concentration, fund of knowledge poor, consistent with her diagnosis. IMPRESSION: Major neurocognitive disorder, Alzheimer, vascular with delusion, depression, behavioral disturbance. PLAN: Continue current psychotropics mentioned in my initial note. MAN April SANTIAGO MD DR: YANIV/damián JOB#: [id number] / [id number]
--- NOTE | 2017-06-13 23:10 | PN ---
DATE: 06/12/2017 This is a late entry of 06/12/2017 and covers the elements not covered in my initial note of 06/12/2017. SUBJECTIVE: The patient slept 5-1/4 hours previous evening, did well in the morning, around 3:00 p.m., she was telling nursing staff her daughter was coming to get her, wants to take her stuff home. She remains somewhat anxious, depressed at times. REVIEW OF SYSTEMS: No CV, , pulmonary, eye, ENT system symptoms on review. Reliability poor. MENTAL STATUS EXAM: Oriented to herself. Insight, judgment, recent and remote memory, attention, concentration, fund of knowledge poor, consistent with her diagnosis. IMPRESSION: Major neurocognitive disorder, Alzheimer, vascular with depression, delusion, behavioral disturbance. Rest unchanged. PLAN: Continue current psychotropics, start Zoloft 25 mg a day for mood, anxiety symptoms. MAN April SANTIAGO MD DR: YANIV/damián JOB#: [id number] / [id number]
[2017-06-14 06:15] VITALS: BP 148/46
[2017-06-14 07:43] LABS: BASO % 1 % (0-3); EOS # 0.2 x10^3/uL (0.0-0.7); EOS % 4 % (0-3); HEMATOCRIT 37.1 % (36.0-47.0); HEMOGLOBIN 12.5 g/dL (12.0-15.5); LYMPH # 1.1 x10^3/uL (1.0-4.8); LYMPH % 23 % (24-48); MEAN CORPUSCULAR HEMOGLOBIN 34 pg (25-35); MEAN CORPUSCULAR HGB CONC 34 g/dL (31-37); MEAN CORPUSCULAR VOLUME 100 fL (79-100); MONO # 0.4 x10^3/uL (0.0-1.1); MONO % 7 % (0-9); NEUT # 3.3 x10^3uL (1.8-7.7); NEUT % 66 % (31-73); PLATELET COUNT 124 x10^3/uL (140-400)
[2017-06-14 08:01] LABS: ALBUMIN 3.2 g/dL (3.4-5.0); ALBUMIN/GLOBULIN RATIO 1.1 (1.0-1.7); CALCIUM 8.8 mg/dL (8.5-10.1); CREATININE 0.9 mg/dL (0.6-1.0); GFR 59.7; MAGNESIUM 2.1 mg/dL (1.8-2.4); TOTAL BILIRUBIN 0.4 mg/dL (0.2-1.0)
[2017-06-14] MEDS: METOPROLOL TART IMMED RELEASE 25 MG TABLET PO SCH ×2 (09:00→20:45)
[2017-06-14] MEDS: CHOLECALCIFEROL (VITAMIN D3) 50,000 UNIT CAPSULE PO SCH (10:10)
[2017-06-14] MEDS: amLODIPine BESYLATE 5 MG TABLET PO SCH (10:11)
[2017-06-14] MEDS: QUEtiapine 25 MG TABLET. PO SCH ×3 (10:11→20:45)
[2017-06-14] MEDS: SERTRALINE 50 MG TABLET. PO SCH (10:17)
[2017-06-14 16:00] VITALS: BP 171/72
[2017-06-14] MEDS: OMEGA-3 FATTY ACIDS/FISH OIL 1,000 MG CAPSULE. PO SCH (17:06)
--- NOTE | 2017-06-14 20:00 | PDOC ---
Exam Note: Santhosh Note: Please also refer to the separate dictated note~for this date of service dictated separately.~Patient seen individually. Discussed the patient with Nursing staff reviewed the chart.~Reviewed interim history and current functioning. Reviewed vital signs,~Labs/ Radiology~and current medications noted below. Continue current treatment with the changes noted in the dictated addendum note Assessment: Vital Signs: Vital Signs Date Time Temp Pulse Resp B/P (MAP) Pulse Ox O2 Delivery O2 Flow Rate FiO2 06/14/17 16:00 97.4 73 18 171/72 (105) 95 06/09/17 06:28 Room Air I&O Intake and Output 06/14/17 07:00 Intake Total 540 ml Balance 540 ml Intake Oral 540 ml Labs: Laboratory Tests Test 06/14/17 07:25 White Blood Count 5.0 x10^3/uL (4.0-11.0) Red Blood Count 3.70 x10^6/uL (3.50-5.40) Hemoglobin 12.5 g/dL (12.0-15.5) Hematocrit 37.1 % (36.0-47.0) Mean Corpuscular Volume 100 fL (79-100) Mean Corpuscular Hemoglobin 34 pg (25-35) Mean Corpuscular Hemoglobin Concent 34 g/dL (31-37) Red Cell Distribution Width 14.0 % (11.5-14.5) Platelet Count 124 x10^3/uL (140-400) L Neutrophils (%) (Auto) 66 % (31-73) Lymphocytes (%) (Auto) 23 % (24-48) L Monocytes (%) (Auto) 7 % (0-9) Eosinophils (%) (Auto) 4 % (0-3) H Basophils (%) (Auto) 1 % (0-3) Neutrophils # (Auto) 3.3 x10^3uL (1.8-7.7) Lymphocytes # (Auto) 1.1 x10^3/uL (1.0-4.8) Monocytes # (Auto) 0.4 x10^3/uL (0.0-1.1) Eosinophils # (Auto) 0.2 x10^3/uL (0.0-0.7) Basophils # (Auto) 0.0 x10^3/uL (0.0-0.2) Sodium Level 144 mmol/L (136-145) Potassium Level 4.0 mmol/L (3.5-5.1) Chloride Level 108 mmol/L (98-107) H Carbon Dioxide Level 30 mmol/L (21-32) Anion Gap 6 (6-14) Blood Urea Nitrogen 24 mg/dL (7-20) H Creatinine 0.9 mg/dL (0.6-1.0) Estimated GFR (Cockcroft-Gault) 59.7 BUN/Creatinine Ratio 27 (6-20) H Glucose Level 93 mg/dL (70-99) Calcium Level 8.8 mg/dL (8.5-10.1) Magnesium Level 2.1 mg/dL (1.8-2.4) Total Bilirubin 0.4 mg/dL (0.2-1.0) Aspartate Amino Transferase (AST) 19 U/L (15-37) Alanine Aminotransferase (ALT) 32 U/L (14-59) Alkaline Phosphatase 76 U/L (46-116) Total Protein 6.0 g/dL (6.4-8.2) L Albumin 3.2 g/dL (3.4-5.0) L Albumin/Globulin Ratio 1.1 (1.0-1.7) Current Medications: Meds: Current Medications Amlodipine Besylate (Norvasc) 2.5 mg DAILY PO Last administered on 06/07/17 08 :34; Start 06/07/17 at 09:00; Stop 06/07/17 at 18:17; Status DC Metoprolol Tartrate (Lopressor) 12.5 mg BID PO Last administered on 06/13/17 19:42; Start 06/07/17 at 09:00 Atorvastatin Calcium (Lipitor) 40 mg QHS PO Last administered on 06/13/17 19: 42; Start 06/07/17 at 21:00 Fish Oil (Fish Oil) 1,000 mg QPM PO Last administered on 06/14/17 17:06; Start 06/07/17 at 18:00 Fish Oil (Fish Oil) 1,000 mg QODAY PO Last administered on 06/13/17 08:42; Start 06/09/17 at 09:00 Amlodipine Besylate (Norvasc) 5 mg DAILY PO Last administered on 06/14/17at 10: 11; Start 06/08/17 at 09:00 Vitamin D (Vitamin D3) 50,000 unit WEEKLY PO Last administered on 06/14/17at 10: 10; Start 06/07/17 at 19:00 Olanzapine (ZyPREXA ZYDIS) 2.5 mg PRN Q2HR PRN PO PSYCHOSIS; Start 06/08/17 at 09:00 Quetiapine Fumarate (SEROquel) 12.5 mg TID@0900,1700,2100 PO Last administered on 06/14/17at 17:06; Start 06/08/17 at 21:00 Mirtazapine (Remeron) 7.5 mg QHS PO Last administered on 06/13/17at 19:42; Start 06/09/17 at 21:00 Trazodone HCl (Desyrel) 25 mg PRN QHS PRN PO INSOMNIA, MAY REPEAT X1; Start at 18:15 Sertraline HCl (Zoloft) 25 mg DAILY PO Last administered on 06/13/17at 08:41; Start 06/12/17 at 09:00; Stop 06/13/17 at 21:04; Status DC Sertraline HCl (Zoloft) 50 mg DAILY PO Last administered on 06/14/17at 10:17; Start 06/14/17 at 09:00 Active Scripts Active Reported [place] 3 1,000 Mg Softgel ([place]-3 Fatty Acids/Fish Oil) 1 Each Capsule 1 Each PO QODAY [place] 3 1,000 Mg Softgel ([place]-3 Fatty Acids/Fish Oil) 1 Each Capsule 1,000 Mg PO QPM Atorvastatin Calcium 40 Mg Tablet 40 Mg PO QHS Norvasc (Amlodipine Besylate) 2.5 Mg Tablet 2.5 Mg PO DAILY Metoprolol Tartrate 25 Mg Tablet 12.5 Mg PO BID I have reviewed the current psychotropics carefully including drug interactions. Risk benefit ratio favors no change other than as noted in my dictated progress note. Diagnosis: Problems: (1) Dementia (2) Paranoia (psychosis) (3) Neurocognitive disorder (4) Cerebrovascular accident (CVA) involving anterior circulation of right side JESSICA SANTIAGO MD Jun 14, 2017 20:00
[2017-06-14] MEDS: MIRTAZAPINE 7.5 MG TABLET. PO SCH (20:45)
[2017-06-14] MEDS: ATORVASTATIN CALCIUM 20 MG TABLET PO SCH (20:45)
[2017-06-15 06:11] VITALS: BP 169/72
[2017-06-15] MEDS: OMEGA-3 FATTY ACIDS/FISH OIL 1,000 MG CAPSULE. PO SCH ×2 (07:57→16:24)
[2017-06-15] MEDS: QUEtiapine 25 MG TABLET. PO SCH ×3 (07:57→19:15)
[2017-06-15] MEDS: SERTRALINE 50 MG TABLET. PO SCH (07:58)
[2017-06-15] MEDS: amLODIPine BESYLATE 5 MG TABLET PO SCH (07:58)
[2017-06-15] MEDS: METOPROLOL TART IMMED RELEASE 25 MG TABLET PO SCH ×2 (07:58→19:14)
[2017-06-15 16:35] VITALS: BP 165/58
[2017-06-15] MEDS: ATORVASTATIN CALCIUM 20 MG TABLET PO SCH (19:12)
[2017-06-15] MEDS: MIRTAZAPINE 7.5 MG TABLET. PO SCH (19:14)
--- NOTE | 2017-06-15 20:01 | PDOC ---
Exam Note: Santhosh Note: Please also refer to the separate dictated note~for this date of service dictated separately.~Patient seen individually. Discussed the patient with Nursing staff reviewed the chart.~Reviewed interim history and current functioning. Reviewed vital signs,~Labs/ Radiology~and current medications noted below. Continue current treatment with the changes noted in the dictated addendum note Assessment: Vital Signs: Vital Signs Date Time Temp Pulse Resp B/P (MAP) Pulse Ox O2 Delivery O2 Flow Rate FiO2 06/15/17 19:14 66 165/58 06/15/17 16:35 98.2 16 96 I&O Intake and Output 06/15/17 07:00 Intake Total 720 ml Balance 720 ml Intake Oral 720 ml # Bowel Movements 1 Current Medications: Meds: Current Medications Amlodipine Besylate (Norvasc) 2.5 mg DAILY PO Last administered on 06/07/17 08 :34; Start 06/07/17 at 09:00; Stop 06/07/17 at 18:17; Status DC Metoprolol Tartrate (Lopressor) 12.5 mg BID PO Last administered on 06/15/17 19:14; Start 06/07/17 at 09:00 Atorvastatin Calcium (Lipitor) 40 mg QHS PO Last administered on 06/15/17 19: 12; Start 06/07/17 at 21:00 Fish Oil (Fish Oil) 1,000 mg QPM PO Last administered on 06/15/17at 16:24; Start 06/07/17 at 18:00 Fish Oil (Fish Oil) 1,000 mg QODAY PO Last administered on 06/15/17 07:57; Start 06/09/17 at 09:00 Amlodipine Besylate (Norvasc) 5 mg DAILY PO Last administered on 06/15/17 07: 58; Start 06/08/17 at 09:00 Vitamin D (Vitamin D3) 50,000 unit WEEKLY PO Last administered on 06/14/17at 10: 10; Start 06/07/17 at 19:00 Olanzapine (ZyPREXA ZYDIS) 2.5 mg PRN Q2HR PRN PO PSYCHOSIS; Start 06/08/17 at 09:00 Quetiapine Fumarate (SEROquel) 12.5 mg TID@0900,1700,2100 PO Last administered on 06/15/17at 19:15; Start 06/08/17 at 21:00 Mirtazapine (Remeron) 7.5 mg QHS PO Last administered on 06/15/17at 19:14; Start 06/09/17 at 21:00 Trazodone HCl (Desyrel) 25 mg PRN QHS PRN PO INSOMNIA, MAY REPEAT X1; Start at 18:15 Sertraline HCl (Zoloft) 25 mg DAILY PO Last administered on 06/13/17at 08:41; Start 06/12/17 at 09:00; Stop 06/13/17 at 21:04; Status DC Sertraline HCl (Zoloft) 50 mg DAILY PO Last administered on 06/15/17at 07:58; Start 06/14/17 at 09:00 Active Scripts Active Reported [place] 3 1,000 Mg Softgel ([place]-3 Fatty Acids/Fish Oil) 1 Each Capsule 1 Each PO QODAY [place] 3 1,000 Mg Softgel ([place]-3 Fatty Acids/Fish Oil) 1 Each Capsule 1,000 Mg PO QPM Atorvastatin Calcium 40 Mg Tablet 40 Mg PO QHS Norvasc (Amlodipine Besylate) 2.5 Mg Tablet 2.5 Mg PO DAILY Metoprolol Tartrate 25 Mg Tablet 12.5 Mg PO BID I have reviewed the current psychotropics carefully including drug interactions. Risk benefit ratio favors no change other than as noted in my dictated progress note. Diagnosis: Problems: (1) Dementia (2) Paranoia (psychosis) (3) Neurocognitive disorder (4) Cerebrovascular accident (CVA) involving anterior circulation of right side JESSICA SANTIAGO MD Jun 15, 2017 20:01
--- NOTE | 2017-06-15 23:56 | PN ---
DATE: 06/13/2017 PSYCHIATRIC PROGRESS NOTE This late entry, date of service 06/13/2017 covers elements not covered in my initial note 06/13/2017. SUBJECTIVE: I met with the patient in the evening of 06/13/2017. The patient slept 6-1/4 hours previous evening, takes her medications whole, less withdrawn, somewhat more social with other patients. Ambulates independently. REVIEW OF SYSTEMS: No CV, , eye, ENT or pulmonary system symptoms on review. Reliability is poor. MENTAL STATUS EXAM: Oriented to herself. Insight, judgment, recent and remote memory, attention, concentration, fund of knowledge poor, consistent with her diagnosis mentioned in my initial note. IMPRESSION: Major neurocognitive disorder, Alzheimer, vascular with depression, delusions. PLAN: Continue current psychotropics, increased Zoloft to 50 mg a day for her mood, anxiety symptoms. MAN April SANTIAGO MD DR: YANIV/damián JOB#: [id number] / [id number]
--- NOTE | 2017-06-16 | PN ---
DATE: 06/14/2017 PSYCHIATRIC PROGRESS NOTE This late entry 06/14/2017 covers elements not covered in my initial note 06/14/2017. SUBJECTIVE: Met with the patient in the evening of 06/14/2017. The patient has been pleasant, confused, somewhat withdrawn to her room, slept well. REVIEW OF SYSTEMS: No CV, , eye, ENT, pulmonary system symptoms on review. Reliability is poor. MENTAL STATUS EXAM: Oriented to herself. Insight, judgment, recent, remote memory, attention, concentration, fund of knowledge poor, consistent with her diagnoses. IMPRESSION: Major neurocognitive disorder, Alzheimer, vascular with depression, delusion, behavioral disturbance. PLAN: Continue current psychotropics. Adjust further as clinically indicated. MAN April SANTIAGO MD DR: YANIV/damián JOB#: [id number] / [id number]
[2017-06-16 05:51] VITALS: BP 142/60
[2017-06-16] MEDS: QUEtiapine 25 MG TABLET. PO SCH ×3 (08:32→19:21)
[2017-06-16] MEDS: SERTRALINE 50 MG TABLET. PO SCH (08:32)
[2017-06-16] MEDS: amLODIPine BESYLATE 5 MG TABLET PO SCH (08:33)
[2017-06-16] MEDS: METOPROLOL TART IMMED RELEASE 25 MG TABLET PO SCH ×2 (08:34→19:22)
[2017-06-16 16:45] VITALS: BP 157/53
[2017-06-16] MEDS: OMEGA-3 FATTY ACIDS/FISH OIL 1,000 MG CAPSULE. PO SCH (17:31)
[2017-06-16] MEDS: ATORVASTATIN CALCIUM 20 MG TABLET PO SCH (19:19)
[2017-06-16] MEDS: MIRTAZAPINE 7.5 MG TABLET. PO SCH (19:19)
--- NOTE | 2017-06-16 20:00 | PDOC ---
Exam Note: Santhosh Note: Please also refer to the separate dictated note~for this date of service dictated separately.~Patient seen individually. Discussed the patient with Nursing staff reviewed the chart.~Reviewed interim history and current functioning. Reviewed vital signs,~Labs/ Radiology~and current medications noted below. Continue current treatment with the changes noted in the dictated addendum note Assessment: Vital Signs: Vital Signs Date Time Temp Pulse Resp B/P (MAP) Pulse Ox O2 Delivery O2 Flow Rate FiO2 06/16/17 19:22 69 157/53 06/16/17 16:45 98.1 18 98 06/16/17 05:51 Room Air I&O Intake and Output 06/16/17 07:00 Intake Total 720 ml Balance 720 ml Intake Oral 720 ml Current Medications: Meds: Current Medications Amlodipine Besylate (Norvasc) 2.5 mg DAILY PO Last administered on 06/07/17 08 :34; Start 06/07/17 at 09:00; Stop 06/07/17 at 18:17; Status DC Metoprolol Tartrate (Lopressor) 12.5 mg BID PO Last administered on 06/16/17at 19:22; Start 06/07/17 at 09:00 Atorvastatin Calcium (Lipitor) 40 mg QHS PO Last administered on 06/16/17 19: 19; Start 06/07/17 at 21:00 Fish Oil (Fish Oil) 1,000 mg QPM PO Last administered on 06/16/17at 17:31; Start 06/07/17 at 18:00 Fish Oil (Fish Oil) 1,000 mg QODAY PO Last administered on 06/15/17at 07:57; Start 06/09/17 at 09:00 Amlodipine Besylate (Norvasc) 5 mg DAILY PO Last administered on 06/16/17at 08: 33; Start 06/08/17 at 09:00 Vitamin D (Vitamin D3) 50,000 unit WEEKLY PO Last administered on 06/14/17at 10: 10; Start 06/07/17 at 19:00 Olanzapine (ZyPREXA ZYDIS) 2.5 mg PRN Q2HR PRN PO PSYCHOSIS; Start 06/08/17 at 09:00 Quetiapine Fumarate (SEROquel) 12.5 mg TID@0900,1700,2100 PO Last administered on 06/16/17at 19:21; Start 06/08/17 at 21:00 Mirtazapine (Remeron) 7.5 mg QHS PO Last administered on 06/16/17 19:19; Start 06/09/17 at 21:00 Trazodone HCl (Desyrel) 25 mg PRN QHS PRN PO INSOMNIA, MAY REPEAT X1; Start at 18:15 Sertraline HCl (Zoloft) 25 mg DAILY PO Last administered on 06/13/17at 08:41; Start 06/12/17 at 09:00; Stop 06/13/17 at 21:04; Status DC Sertraline HCl (Zoloft) 50 mg DAILY PO Last administered on 06/16/17at 08:32; Start 06/14/17 at 09:00 Active Scripts Active Reported [place] 3 1,000 Mg Softgel ([place]-3 Fatty Acids/Fish Oil) 1 Each Capsule 1 Each PO QODAY [place] 3 1,000 Mg Softgel ([place]-3 Fatty Acids/Fish Oil) 1 Each Capsule 1,000 Mg PO QPM Atorvastatin Calcium 40 Mg Tablet 40 Mg PO QHS Norvasc (Amlodipine Besylate) 2.5 Mg Tablet 2.5 Mg PO DAILY Metoprolol Tartrate 25 Mg Tablet 12.5 Mg PO BID I have reviewed the current psychotropics carefully including drug interactions. Risk benefit ratio favors no change other than as noted in my dictated progress note. Diagnosis: Problems: (1) Dementia (2) Paranoia (psychosis) (3) Neurocognitive disorder (4) Cerebrovascular accident (CVA) involving anterior circulation of right side JESSICA SANTIAGO MD Jun 16, 2017 20:00
--- NOTE | 2017-06-16 21:28 | PN ---
DATE: 06/15/2017 This late entry 06/15/2017 covers elements not covered in my initial note 06/15/2017. The patient remains confused, slept okay. Not aggressive. REVIEW OF SYSTEMS: No CV, , pulmonary, eye system symptoms on review. Reliability poor. MENTAL STATUS EXAM: Oriented to herself. Insight, judgment, recent and remote memory, attention, concentration, fund of knowledge poor, consistent with her diagnosis mentioned in my initial note. IMPRESSION: Major neurocognitive disorder, Alzheimer, vascular with depression, delusion, behavioral disturbance. Rest unchanged. PLAN: Continue psychotropics mentioned in my initial note. MAN April SANTIAGO MD DR: YANIV/damián JOB#: [id number] / [id number]
[2017-06-17 06:26] VITALS: BP 129/60
[2017-06-17] MEDS: OMEGA-3 FATTY ACIDS/FISH OIL 1,000 MG CAPSULE. PO SCH ×2 (09:15→17:52)
[2017-06-17] MEDS: amLODIPine BESYLATE 5 MG TABLET PO SCH (09:16)
[2017-06-17] MEDS: SERTRALINE 50 MG TABLET. PO SCH (09:16)
[2017-06-17] MEDS: QUEtiapine 25 MG TABLET. PO SCH ×3 (09:16→20:15)
[2017-06-17] MEDS: METOPROLOL TART IMMED RELEASE 25 MG TABLET PO SCH ×2 (09:17→20:15)
[2017-06-17 16:26] VITALS: BP 160/63
--- NOTE | 2017-06-17 19:52 | PDOC ---
Exam Note: Santhosh Note: Please also refer to the separate dictated note~for this date of service dictated separately.~Patient seen individually. Discussed the patient with Nursing staff reviewed the chart.~Reviewed interim history and current functioning. Reviewed vital signs,~Labs/ Radiology~and current medications noted below. Continue current treatment with the changes noted in the dictated addendum note Assessment: Vital Signs: Vital Signs Date Time Temp Pulse Resp B/P (MAP) Pulse Ox O2 Delivery O2 Flow Rate FiO2 06/17/17 16:26 97.6 67 16 160/63 (95) 96 Room Air I&O Intake and Output 06/17/17 07:00 Intake Total 1080 ml Balance 1080 ml Intake Oral 1080 ml Current Medications: Meds: Current Medications Amlodipine Besylate (Norvasc) 2.5 mg DAILY PO Last administered on 06/07/17 08 :34; Start 06/07/17 at 09:00; Stop 06/07/17 at 18:17; Status DC Metoprolol Tartrate (Lopressor) 12.5 mg BID PO Last administered on 06/17/17at 09:17; Start 06/07/17 at 09:00 Atorvastatin Calcium (Lipitor) 40 mg QHS PO Last administered on 06/16/17 19: 19; Start 06/07/17 at 21:00 Fish Oil (Fish Oil) 1,000 mg QPM PO Last administered on 06/17/17 17:52; Start 06/07/17 at 18:00 Fish Oil (Fish Oil) 1,000 mg QODAY PO Last administered on 06/17/17 09:15; Start 06/09/17 at 09:00 Amlodipine Besylate (Norvasc) 5 mg DAILY PO Last administered on 06/17/17 09: 16; Start 06/08/17 at 09:00 Vitamin D (Vitamin D3) 50,000 unit WEEKLY PO Last administered on 06/14/17at 10: 10; Start 06/07/17 at 19:00 Olanzapine (ZyPREXA ZYDIS) 2.5 mg PRN Q2HR PRN PO PSYCHOSIS; Start 06/08/17 at 09:00 Quetiapine Fumarate (SEROquel) 12.5 mg TID@0900,1700,2100 PO Last administered on 06/17/17at 16:48; Start 06/08/17 at 21:00 Mirtazapine (Remeron) 7.5 mg QHS PO Last administered on 06/16/17at 19:19; Start 06/09/17 at 21:00 Trazodone HCl (Desyrel) 25 mg PRN QHS PRN PO INSOMNIA, MAY REPEAT X1; Start at 18:15 Sertraline HCl (Zoloft) 25 mg DAILY PO Last administered on 06/13/17at 08:41; Start 06/12/17 at 09:00; Stop 06/13/17 at 21:04; Status DC Sertraline HCl (Zoloft) 50 mg DAILY PO Last administered on 06/17/17at 09:16; Start 06/14/17 at 09:00; Stop 06/17/17 at 15:44; Status DC Sertraline HCl (Zoloft) 75 mg DAILY PO ; Start 06/18/17 at 09:00 Active Scripts Active Reported [place] 3 1,000 Mg Softgel ([place]-3 Fatty Acids/Fish Oil) 1 Each Capsule 1 Each PO QODAY [place] 3 1,000 Mg Softgel ([place]-3 Fatty Acids/Fish Oil) 1 Each Capsule 1,000 Mg PO QPM Atorvastatin Calcium 40 Mg Tablet 40 Mg PO QHS Norvasc (Amlodipine Besylate) 2.5 Mg Tablet 2.5 Mg PO DAILY Metoprolol Tartrate 25 Mg Tablet 12.5 Mg PO BID I have reviewed the current psychotropics carefully including drug interactions. Risk benefit ratio favors no change other than as noted in my dictated progress note. Diagnosis: Problems: (1) Dementia (2) Paranoia (psychosis) (3) Neurocognitive disorder (4) Cerebrovascular accident (CVA) involving anterior circulation of right side JESSICA SANTIAGO MD Jun 17, 2017 19:52
[2017-06-17] MEDS: ATORVASTATIN CALCIUM 20 MG TABLET PO SCH (20:14)
[2017-06-17] MEDS: MIRTAZAPINE 7.5 MG TABLET. PO SCH (20:15)
[2017-06-17] MEDS: traZODone 50 MG TABLET. PO PRN (20:18)
[2017-06-18 06:19] VITALS: BP 146/72
[2017-06-18] MEDS: METOPROLOL TART IMMED RELEASE 25 MG TABLET PO SCH ×2 (08:07→20:58)
[2017-06-18] MEDS: QUEtiapine 25 MG TABLET. PO SCH ×3 (08:07→20:59)
[2017-06-18] MEDS: amLODIPine BESYLATE 5 MG TABLET PO SCH (08:08)
[2017-06-18] MEDS: SERTRALINE 50 MG TABLET. PO SCH (08:09)
[2017-06-18 16:03] VITALS: BP 143/57
[2017-06-18] MEDS: OMEGA-3 FATTY ACIDS/FISH OIL 1,000 MG CAPSULE. PO SCH (18:27)
--- NOTE | 2017-06-18 19:43 | PDOC ---
Exam Note: Santhosh Note: Please also refer to the separate dictated note~for this date of service dictated separately.~Patient seen individually. Discussed the patient with Nursing staff reviewed the chart.~Reviewed interim history and current functioning. Reviewed vital signs,~Labs/ Radiology~and current medications noted below. Continue current treatment with the changes noted in the dictated addendum note Assessment: Vital Signs: Vital Signs Date Time Temp Pulse Resp B/P (MAP) Pulse Ox O2 Delivery O2 Flow Rate FiO2 06/18/17 16:03 98.2 63 20 143/57 (85) 95 06/17/17 16:26 Room Air I&O Intake and Output 06/18/17 07:00 Intake Total 980 ml Balance 980 ml Intake Oral 980 ml Current Medications: Meds: Current Medications Amlodipine Besylate (Norvasc) 2.5 mg DAILY PO Last administered on 06/07/17 08 :34; Start 06/07/17 at 09:00; Stop 06/07/17 at 18:17; Status DC Metoprolol Tartrate (Lopressor) 12.5 mg BID PO Last administered on 06/18/17 08:07; Start 06/07/17 at 09:00 Atorvastatin Calcium (Lipitor) 40 mg QHS PO Last administered on 06/17/17 20: 14; Start 06/07/17 at 21:00 Fish Oil (Fish Oil) 1,000 mg QPM PO Last administered on 06/18/17 18:27; Start 06/07/17 at 18:00 Fish Oil (Fish Oil) 1,000 mg QODAY PO Last administered on 06/17/17 09:15; Start 06/09/17 at 09:00 Amlodipine Besylate (Norvasc) 5 mg DAILY PO Last administered on 06/18/17 08: 08; Start 06/08/17 at 09:00 Vitamin D (Vitamin D3) 50,000 unit WEEKLY PO Last administered on 06/14/17 10: 10; Start 06/07/17 at 19:00 Olanzapine (ZyPREXA ZYDIS) 2.5 mg PRN Q2HR PRN PO PSYCHOSIS; Start 06/08/17 at 09:00 Quetiapine Fumarate (SEROquel) 12.5 mg TID@0900,1700,2100 PO Last administered on 2/23/18at 18:27; Start 06/08/17 at 21:00 Mirtazapine (Remeron) 7.5 mg QHS PO Last administered on 06/17/17at 20:15; Start 06/09/17 at 21:00 Trazodone HCl (Desyrel) 25 mg PRN QHS PRN PO INSOMNIA, MAY REPEAT X1 Last administered on 06/17/17at 20:18; Start 06/09/17 at 18:15 Sertraline HCl (Zoloft) 25 mg DAILY PO Last administered on 06/13/17at 08:41; Start 06/12/17 at 09:00; Stop 06/13/17 at 21:04; Status DC Sertraline HCl (Zoloft) 50 mg DAILY PO Last administered on 06/17/17at 09:16; Start 06/14/17 at 09:00; Stop 06/17/17 at 15:44; Status DC Sertraline HCl (Zoloft) 75 mg DAILY PO Last administered on 06/18/17at 08:09; Start 06/18/17 at 09:00 Active Scripts Active Reported [place] 3 1,000 Mg Softgel ([place]-3 Fatty Acids/Fish Oil) 1 Each Capsule 1 Each PO QODAY [place] 3 1,000 Mg Softgel ([place]-3 Fatty Acids/Fish Oil) 1 Each Capsule 1,000 Mg PO QPM Atorvastatin Calcium 40 Mg Tablet 40 Mg PO QHS Norvasc (Amlodipine Besylate) 2.5 Mg Tablet 2.5 Mg PO DAILY Metoprolol Tartrate 25 Mg Tablet 12.5 Mg PO BID I have reviewed the current psychotropics carefully including drug interactions. Risk benefit ratio favors no change other than as noted in my dictated progress note. Diagnosis: Problems: (1) Dementia (2) Paranoia (psychosis) (3) Neurocognitive disorder (4) Cerebrovascular accident (CVA) involving anterior circulation of right side JESSICA SANTIAGO MD Jun 18, 2017 19:43
[2017-06-18] MEDS: MIRTAZAPINE 7.5 MG TABLET. PO SCH (20:58)
[2017-06-18] MEDS: ATORVASTATIN CALCIUM 20 MG TABLET PO SCH (20:58)
--- NOTE | 2017-06-18 21:38 | PN ---
DATE: 06/16/2017 This late entry 06/16/2017 covers elements not covered in my initial note 06/16/2017. Met with the patient evening of 06/16/2017. SUBJECTIVE: The patient had a good day compliant with medications, withdrawn, spends much time in the room with her roommate. Somewhat delusional previous evening, slept 6-1/4 hours. No CV, , pulmonary, eye, ENT system symptoms on review. As I questioned her, she did not remember if she had gone for supper, but in fact she had. Certainly, did not remember what she ate for supper. MENTAL STATUS EXAM: Oriented to herself. Insight, judgment, recent and remote memory, attention, concentration, fund of knowledge poor, consistent with her diagnosis. IMPRESSION: Major neurocognitive disorder, Alzheimer, vascular with delusion, depression, behavioral disturbance. Rest unchanged. PLAN: Continue current psychotropics. Adjust as indicated. MAN April SANTIAGO MD DR: YANIV/damián JOB#: [id number] / [id number]
--- NOTE | 2017-06-19 01:47 | PN ---
DATE: 06/17/2017 PSYCHIATRIC PROGRESS NOTE This late entry 06/17/2017 covers elements not covered in my initial note 06/17/2017. SUBJECTIVE: The patient was staffed at a treatment team meeting with the entire team morning of 06/17/2017 and met with her individually as well. Reviewed her history at length, diagnosis, progress, medications. She slept 7-1/4 hours previous evening, compliant with medications, somewhat withdrawn to her room, otherwise pleasant and paranoid. REVIEW OF SYSTEMS: No CV, , pulmonary, eye, ENT system symptoms on review. Reliability poor. MENTAL STATUS EXAM: Oriented to herself. Insight, judgment, recent and remote memory, attention, concentration, fund of knowledge poor, consistent with her diagnosis mentioned in my initial note. IMPRESSION: Major neurocognitive disorder, Alzheimer, vascular with depression, delusion, behavioral disturbance. Rest unchanged. PLAN: Continue psychotropics mentioned in my initial note. Increase Zoloft to 75 mg a day after she has been on 50 mg for 3 days. Adjust further as clinically indicated. MAN April SANTIAGO MD DR: YANIV/damián JOB#: [id number] / [id number]
[2017-06-19 06:43] VITALS: BP 126/47
[2017-06-19] MEDS: METOPROLOL TART IMMED RELEASE 25 MG TABLET PO SCH ×2 (07:53→20:50)
[2017-06-19] MEDS: amLODIPine BESYLATE 5 MG TABLET PO SCH (07:55)
[2017-06-19] MEDS: SERTRALINE 50 MG TABLET. PO SCH (07:55)
[2017-06-19] MEDS: QUEtiapine 25 MG TABLET. PO SCH ×3 (07:55→20:52)
[2017-06-19] MEDS: OMEGA-3 FATTY ACIDS/FISH OIL 1,000 MG CAPSULE. PO SCH ×2 (07:56→18:18)
[2017-06-19 16:11] VITALS: BP 136/52
[2017-06-19] MEDS: traZODone 50 MG TABLET. PO PRN (20:50)
[2017-06-19] MEDS: MIRTAZAPINE 7.5 MG TABLET. PO SCH (20:50)
[2017-06-19] MEDS: ATORVASTATIN CALCIUM 20 MG TABLET PO SCH (20:50)
--- NOTE | 2017-06-19 21:59 | PDOC ---
Exam Note: Santhosh Note: Please also refer to the separate dictated note~for this date of service dictated separately.~Patient seen individually. Discussed the patient with Nursing staff reviewed the chart.~Reviewed interim history and current functioning. Reviewed vital signs,~Labs/ Radiology~and current medications noted below. Continue current treatment with the changes noted in the dictated addendum note Assessment: Vital Signs: Vital Signs Date Time Temp Pulse Resp B/P (MAP) Pulse Ox O2 Delivery O2 Flow Rate FiO2 06/19/17 20:50 68 136/52 06/19/17 16:11 97.8 16 06/19/17 06:43 94 06/17/17 16:26 Room Air I&O Intake and Output 06/19/17 07:00 Intake Total 920 ml Balance 920 ml Intake Oral 920 ml Current Medications: Meds: Current Medications Amlodipine Besylate (Norvasc) 2.5 mg DAILY PO Last administered on 06/07/17 08 :34; Start 06/07/17 at 09:00; Stop 06/07/17 at 18:17; Status DC Metoprolol Tartrate (Lopressor) 12.5 mg BID PO Last administered on 06/19/17 20:50; Start 06/07/17 at 09:00 Atorvastatin Calcium (Lipitor) 40 mg QHS PO Last administered on 06/19/17 20: 50; Start 06/07/17 at 21:00 Fish Oil (Fish Oil) 1,000 mg QPM PO Last administered on 06/19/17 18:18; Start 06/07/17 at 18:00 Fish Oil (Fish Oil) 1,000 mg QODAY PO Last administered on 06/19/17at 07:56; Start 06/09/17 at 09:00 Amlodipine Besylate (Norvasc) 5 mg DAILY PO Last administered on 06/19/17at 07: 55; Start 06/08/17 at 09:00 Vitamin D (Vitamin D3) 50,000 unit WEEKLY PO Last administered on 06/14/17at 10: 10; Start 06/07/17 at 19:00 Olanzapine (ZyPREXA ZYDIS) 2.5 mg PRN Q2HR PRN PO PSYCHOSIS; Start 06/08/17 at 09:00 Quetiapine Fumarate (SEROquel) 12.5 mg TID@0900,1700,2100 PO Last administered on 06/19/17 20:52; Start 06/08/17 at 21:00 Mirtazapine (Remeron) 7.5 mg QHS PO Last administered on 06/19/17 20:50; Start 06/09/17 at 21:00 Trazodone HCl (Desyrel) 25 mg PRN QHS PRN PO INSOMNIA, MAY REPEAT X1 Last administered on 06/19/17 20:50; Start 06/09/17 at 18:15 Sertraline HCl (Zoloft) 25 mg DAILY PO Last administered on 06/13/17at 08:41; Start 06/12/17 at 09:00; Stop 06/13/17 at 21:04; Status DC Sertraline HCl (Zoloft) 50 mg DAILY PO Last administered on 06/17/17at 09:16; Start 06/14/17 at 09:00; Stop 06/17/17 at 15:44; Status DC Sertraline HCl (Zoloft) 75 mg DAILY PO Last administered on 06/19/17at 07:55; Start 06/18/17 at 09:00 Active Scripts Active Reported [place] 3 1,000 Mg Softgel ([place]-3 Fatty Acids/Fish Oil) 1 Each Capsule 1 Each PO QODAY [place] 3 1,000 Mg Softgel ([place]-3 Fatty Acids/Fish Oil) 1 Each Capsule 1,000 Mg PO QPM Atorvastatin Calcium 40 Mg Tablet 40 Mg PO QHS Norvasc (Amlodipine Besylate) 2.5 Mg Tablet 2.5 Mg PO DAILY Metoprolol Tartrate 25 Mg Tablet 12.5 Mg PO BID I have reviewed the current psychotropics carefully including drug interactions. Risk benefit ratio favors no change other than as noted in my dictated progress note. Diagnosis: Problems: (1) Dementia (2) Paranoia (psychosis) (3) Neurocognitive disorder (4) Cerebrovascular accident (CVA) involving anterior circulation of right side JESSICA SANTIAGO MD Jun 19, 2017 21:59
[2017-06-20 06:13] VITALS: BP 135/82
[2017-06-20] MEDS: METOPROLOL TART IMMED RELEASE 25 MG TABLET PO SCH ×2 (07:48→21:02)
[2017-06-20] MEDS: SERTRALINE 50 MG TABLET. PO SCH (07:48)
[2017-06-20] MEDS: amLODIPine BESYLATE 5 MG TABLET PO SCH (07:48)
[2017-06-20] MEDS: QUEtiapine 25 MG TABLET. PO SCH ×3 (07:48→21:03)
[2017-06-20] MEDS: OMEGA-3 FATTY ACIDS/FISH OIL 1,000 MG CAPSULE. PO SCH (07:49)
--- NOTE | 2017-06-20 09:59 | PN ---
DATE: 06/18/2017 PSYCHIATRIC PROGRESS NOTE This is a late entry 06/18/2017, covers elements not covered in my initial note of 06/18/2017. SUBJECTIVE: I met with the patient evening of 06/18/2017. The patient remains confused, spends much time in her room, compliant, sarcastic at times, somewhat restless, anxious. REVIEW OF SYSTEMS: No CV, , pulmonary, eye, ENT system symptoms on review. Reliability poor. MENTAL STATUS EXAM: Oriented to herself. Insight, judgment, recent and remote memory, attention, concentration, fund of knowledge poor, consistent with her diagnoses mentioned in my initial note. IMPRESSION: Major neurocognitive disorder, Alzheimer, vascular with depression, delusion, behavioral disturbance. Rest unchanged. PLAN: Continue psychotropics mentioned in my initial note. MAN April SANTIAGO MD DR: YANIV/damián JOB#: [id number] / [id number]
--- NOTE | 2017-06-20 10:06 | PN ---
DATE: 06/19/2017 This late entry 06/19/2017 covers elements not covered in my initial note 06/19/2017. SUBJECTIVE: I met with the patient evening of 06/19/2017. She is not very verbal, isolates in room. Otherwise, pleasant as I met with her smiling, unaware of what she had for supper, even though I met her quite a bit after the supper. REVIEW OF SYSTEMS: No CV, , pulmonary, eye, ENT system symptoms on review. Reliability poor. MENTAL STATUS EXAM: Oriented to herself. Insight, judgment, recent and remote memory, attention, concentration, fund of knowledge poor, consistent with her diagnosis mentioned in my initial note. IMPRESSION: Major neurocognitive disorder, Alzheimer, vascular with delusion, depression, behavioral disturbance. Rest unchanged. PLAN: Continue psychotropics mentioned in my initial note. Adjust further as clinically indicated. MAN April SANTIAGO MD DR: YANIV/damián JOB#: [id number] / [id number]
[2017-06-20 16:28] VITALS: BP 119/51
--- NOTE | 2017-06-20 19:36 | PDOC ---
Exam Note: Santhosh Note: Please also refer to the separate dictated note~for this date of service dictated separately.~Patient seen individually. Discussed the patient with Nursing staff reviewed the chart.~Reviewed interim history and current functioning. Reviewed vital signs,~Labs/ Radiology~and current medications noted below. Continue current treatment with the changes noted in the dictated addendum note Assessment: Vital Signs: Vital Signs Date Time Temp Pulse Resp B/P (MAP) Pulse Ox O2 Delivery O2 Flow Rate FiO2 06/20/17 16:28 98.6 102 18 119/51 (73) 95 06/17/17 16:26 Room Air I&O Intake and Output 06/20/17 07:00 Intake Total 1080 ml Balance 1080 ml Intake Oral 1080 ml # Voids 1 Current Medications: Meds: Current Medications Amlodipine Besylate (Norvasc) 2.5 mg DAILY PO Last administered on 06/07/17 08 :34; Start 06/07/17 at 09:00; Stop 06/07/17 at 18:17; Status DC Metoprolol Tartrate (Lopressor) 12.5 mg BID PO Last administered on 06/20/17 07:48; Start 06/07/17 at 09:00 Atorvastatin Calcium (Lipitor) 40 mg QHS PO Last administered on 06/19/17 20: 50; Start 06/07/17 at 21:00 Fish Oil (Fish Oil) 1,000 mg QPM PO Last administered on 06/20/17 07:49; Start 06/07/17 at 18:00 Fish Oil (Fish Oil) 1,000 mg QODAY PO Last administered on 06/19/17 07:56; Start 06/09/17 at 09:00 Amlodipine Besylate (Norvasc) 5 mg DAILY PO Last administered on 06/20/17 07: 48; Start 06/08/17 at 09:00 Vitamin D (Vitamin D3) 50,000 unit WEEKLY PO Last administered on 06/14/17at 10: 10; Start 06/07/17 at 19:00 Olanzapine (ZyPREXA ZYDIS) 2.5 mg PRN Q2HR PRN PO PSYCHOSIS; Start 06/08/17 at 09:00 Quetiapine Fumarate (SEROquel) 12.5 mg TID@0900,1700,2100 PO Last administered on 06/20/17 19:32; Start 06/08/17 at 21:00 Mirtazapine (Remeron) 7.5 mg QHS PO Last administered on 06/19/17 20:50; Start 06/09/17 at 21:00 Trazodone HCl (Desyrel) 25 mg PRN QHS PRN PO INSOMNIA, MAY REPEAT X1 Last administered on 06/19/17at 20:50; Start 06/09/17 at 18:15 Sertraline HCl (Zoloft) 25 mg DAILY PO Last administered on 06/13/17at 08:41; Start 06/12/17 at 09:00; Stop 06/13/17 at 21:04; Status DC Sertraline HCl (Zoloft) 50 mg DAILY PO Last administered on 06/17/17 09:16; Start 06/14/17 at 09:00; Stop 06/17/17 at 15:44; Status DC Sertraline HCl (Zoloft) 75 mg DAILY PO Last administered on 06/20/17 07:48; Start 06/18/17 at 09:00 Active Scripts Active Reported [place] 3 1,000 Mg Softgel ([place]-3 Fatty Acids/Fish Oil) 1 Each Capsule 1 Each PO QODAY [place] 3 1,000 Mg Softgel ([place]-3 Fatty Acids/Fish Oil) 1 Each Capsule 1,000 Mg PO QPM Atorvastatin Calcium 40 Mg Tablet 40 Mg PO QHS Norvasc (Amlodipine Besylate) 2.5 Mg Tablet 2.5 Mg PO DAILY Metoprolol Tartrate 25 Mg Tablet 12.5 Mg PO BID I have reviewed the current psychotropics carefully including drug interactions. Risk benefit ratio favors no change other than as noted in my dictated progress note. Diagnosis: Problems: (1) Dementia (2) Paranoia (psychosis) (3) Neurocognitive disorder (4) Cerebrovascular accident (CVA) involving anterior circulation of right side JESSICA SANTIAGO MD Jun 20, 2017 19:36
[2017-06-20] MEDS: ATORVASTATIN CALCIUM 20 MG TABLET PO SCH (21:00)
[2017-06-20] MEDS: traZODone 50 MG TABLET. PO PRN (21:01)
[2017-06-20] MEDS: MIRTAZAPINE 7.5 MG TABLET. PO SCH (21:01)
[2017-06-21 06:54] VITALS: BP 118/57
[2017-06-21 08:25] LABS: BASO % 1 % (0-3); EOS # 0.2 x10^3/uL (0.0-0.7); EOS % 4 % (0-3); HEMOGLOBIN 13.1 g/dL (12.0-15.5); LYMPH # 1.4 x10^3/uL (1.0-4.8); LYMPH % 24 % (24-48); MEAN CORPUSCULAR HEMOGLOBIN 34 pg (25-35); MEAN CORPUSCULAR HGB CONC 34 g/dL (31-37); MEAN CORPUSCULAR VOLUME 99 fL (79-100); MONO # 0.4 x10^3/uL (0.0-1.1); MONO % 7 % (0-9); NEUT # 3.7 x10^3uL (1.8-7.7); NEUT % 65 % (31-73); PLATELET COUNT 135 x10^3/uL (140-400); RED BLOOD COUNT 3.84 x10^6/uL (3.50-5.40); RED CELL DISTRIBUTION WIDTH 13.7 % (11.5-14.5); WHITE BLOOD COUNT 5.6 x10^3/uL (4.0-11.0)
[2017-06-21 08:32] LABS: ALBUMIN 3.3 g/dL (3.4-5.0); ALBUMIN/GLOBULIN RATIO 1.1 (1.0-1.7); CALCIUM 9.1 mg/dL (8.5-10.1); GFR 52.8; POTASSIUM 4.3 mmol/L (3.5-5.1); TOTAL BILIRUBIN 0.3 mg/dL (0.2-1.0); TOTAL PROTEIN 6.2 g/dL (6.4-8.2)
[2017-06-21] MEDS: amLODIPine BESYLATE 5 MG TABLET PO SCH (09:08)
[2017-06-21] MEDS: QUEtiapine 25 MG TABLET. PO SCH ×3 (09:09→21:03)
[2017-06-21] MEDS: SERTRALINE 50 MG TABLET. PO SCH (09:09)
[2017-06-21] MEDS: METOPROLOL TART IMMED RELEASE 25 MG TABLET PO SCH ×2 (09:09→21:04)
[2017-06-21] MEDS: CHOLECALCIFEROL (VITAMIN D3) 50,000 UNIT CAPSULE PO SCH (09:12)
[2017-06-21] MEDS: OMEGA-3 FATTY ACIDS/FISH OIL 1,000 MG CAPSULE. PO SCH ×2 (09:12→17:37)
[2017-06-21 15:49] VITALS: BP 136/69
--- NOTE | 2017-06-21 18:55 | PDOC ---
Exam Note: Santhosh Note: Please also refer to the separate dictated note~for this date of service dictated separately.~Patient seen individually. Discussed the patient with Nursing staff reviewed the chart.~Reviewed interim history and current functioning. Reviewed vital signs,~Labs/ Radiology~and current medications noted below. Continue current treatment with the changes noted in the dictated addendum note Assessment: Vital Signs: Vital Signs Date Time Temp Pulse Resp B/P (MAP) Pulse Ox O2 Delivery O2 Flow Rate FiO2 06/21/17 15:49 98.5 70 16 136/69 (91) 95 06/17/17 16:26 Room Air I&O Intake and Output 06/21/17 07:00 Intake Total 780 ml Balance 780 ml Intake Oral 780 ml # Voids 1 Labs: Laboratory Tests Test 06/21/17 07:32 White Blood Count 5.6 x10^3/uL (4.0-11.0) Red Blood Count 3.84 x10^6/uL (3.50-5.40) Hemoglobin 13.1 g/dL (12.0-15.5) Hematocrit 38.0 % (36.0-47.0) Mean Corpuscular Volume 99 fL (79-100) Mean Corpuscular Hemoglobin 34 pg (25-35) Mean Corpuscular Hemoglobin Concent 34 g/dL (31-37) Red Cell Distribution Width 13.7 % (11.5-14.5) Platelet Count 135 x10^3/uL (140-400) L Neutrophils (%) (Auto) 65 % (31-73) Lymphocytes (%) (Auto) 24 % (24-48) Monocytes (%) (Auto) 7 % (0-9) Eosinophils (%) (Auto) 4 % (0-3) H Basophils (%) (Auto) 1 % (0-3) Neutrophils # (Auto) 3.7 x10^3uL (1.8-7.7) Lymphocytes # (Auto) 1.4 x10^3/uL (1.0-4.8) Monocytes # (Auto) 0.4 x10^3/uL (0.0-1.1) Eosinophils # (Auto) 0.2 x10^3/uL (0.0-0.7) Basophils # (Auto) 0.0 x10^3/uL (0.0-0.2) Sodium Level 143 mmol/L (136-145) Potassium Level 4.3 mmol/L (3.5-5.1) Chloride Level 107 mmol/L (98-107) Carbon Dioxide Level 31 mmol/L (21-32) Anion Gap 5 (6-14) L Blood Urea Nitrogen 22 mg/dL (7-20) H Creatinine 1.0 mg/dL (0.6-1.0) Estimated GFR (Cockcroft-Gault) 52.8 BUN/Creatinine Ratio 22 (6-20) H Glucose Level 93 mg/dL (70-99) Calcium Level 9.1 mg/dL (8.5-10.1) Total Bilirubin 0.3 mg/dL (0.2-1.0) Aspartate Amino Transferase (AST) 21 U/L (15-37) Alanine Aminotransferase (ALT) 36 U/L (14-59) Alkaline Phosphatase 80 U/L (46-116) Total Protein 6.2 g/dL (6.4-8.2) L Albumin 3.3 g/dL (3.4-5.0) L Albumin/Globulin Ratio 1.1 (1.0-1.7) Current Medications: Meds: Current Medications Amlodipine Besylate (Norvasc) 2.5 mg DAILY PO Last administered on 06/07/17 08 :34; Start 06/07/17 at 09:00; Stop 06/07/17 at 18:17; Status DC Metoprolol Tartrate (Lopressor) 12.5 mg BID PO Last administered on 06/21/17 09:09; Start 06/07/17 at 09:00 Atorvastatin Calcium (Lipitor) 40 mg QHS PO Last administered on 06/20/17at 21: 00; Start 06/07/17 at 21:00 Fish Oil (Fish Oil) 1,000 mg QPM PO Last administered on 06/21/17 17:37; Start 06/07/17 at 18:00 Fish Oil (Fish Oil) 1,000 mg QODAY PO Last administered on 06/21/17 09:12; Start 06/09/17 at 09:00 Amlodipine Besylate (Norvasc) 5 mg DAILY PO Last administered on 06/21/17 09: 08; Start 06/08/17 at 09:00 Vitamin D (Vitamin D3) 50,000 unit WEEKLY PO Last administered on 06/21/17 09: 12; Start 06/07/17 at 19:00 Olanzapine (ZyPREXA ZYDIS) 2.5 mg PRN Q2HR PRN PO PSYCHOSIS; Start 06/08/17 at 09:00 Quetiapine Fumarate (SEROquel) 12.5 mg TID@0900,1700,2100 PO Last administered on 06/21/17at 17:02; Start 06/08/17 at 21:00 Mirtazapine (Remeron) 7.5 mg QHS PO Last administered on 06/20/17at 21:01; Start 06/09/17 at 21:00 Trazodone HCl (Desyrel) 25 mg PRN QHS PRN PO INSOMNIA, MAY REPEAT X1 Last administered on 06/20/17at 21:01; Start 06/09/17 at 18:15 Sertraline HCl (Zoloft) 25 mg DAILY PO Last administered on 06/13/17at 08:41; Start 06/12/17 at 09:00; Stop 06/13/17 at 21:04; Status DC Sertraline HCl (Zoloft) 50 mg DAILY PO Last administered on 06/17/17at 09:16; Start 06/14/17 at 09:00; Stop 06/17/17 at 15:44; Status DC Sertraline HCl (Zoloft) 75 mg DAILY PO Last administered on 06/21/17at 09:09; Start 06/18/17 at 09:00 Active Scripts Active Reported [place] 3 1,000 Mg Softgel ([place]-3 Fatty Acids/Fish Oil) 1 Each Capsule 1 Each PO QODAY [place] 3 1,000 Mg Softgel ([place]-3 Fatty Acids/Fish Oil) 1 Each Capsule 1,000 Mg PO QPM Atorvastatin Calcium 40 Mg Tablet 40 Mg PO QHS Norvasc (Amlodipine Besylate) 2.5 Mg Tablet 2.5 Mg PO DAILY Metoprolol Tartrate 25 Mg Tablet 12.5 Mg PO BID I have reviewed the current psychotropics carefully including drug interactions. Risk benefit ratio favors no change other than as noted in my dictated progress note. Diagnosis: Problems: (1) Dementia (2) Paranoia (psychosis) (3) Neurocognitive disorder (4) Cerebrovascular accident (CVA) involving anterior circulation of right side JESSICA SANTIAGO MD Jun 21, 2017 18:55
[2017-06-21] MEDS: ATORVASTATIN CALCIUM 20 MG TABLET PO SCH (21:03)
[2017-06-21] MEDS: MIRTAZAPINE 7.5 MG TABLET. PO SCH (21:04)
[2017-06-22 06:35] VITALS: BP 125/69
[2017-06-22] MEDS: QUEtiapine 25 MG TABLET. PO SCH ×3 (08:34→21:07)
[2017-06-22] MEDS: SERTRALINE 50 MG TABLET. PO SCH (08:34)
[2017-06-22] MEDS: amLODIPine BESYLATE 5 MG TABLET PO SCH (08:34)
[2017-06-22] MEDS: METOPROLOL TART IMMED RELEASE 25 MG TABLET PO SCH ×2 (08:36→21:09)
--- NOTE | 2017-06-22 10:00 | PN ---
DATE: 06/20/2017 PSYCHIATRIC PROGRESS NOTE This is a late entry 06/20/2017, covers elements not covered in my initial note 06/20/2017. SUBJECTIVE: I met with the patient the evening of 06/20/2017. The patient slept reasonably previous evening. Appetite is fair, remains confused, spends much time in her room with her roommate, delusional, believing her daughter is coming to take her home. REVIEW OF SYSTEMS: No CV, , pulmonary, eye, ENT system symptoms on review. Reliability poor. MENTAL STATUS EXAM: Oriented to herself. Insight, judgment, recent and remote memory, attention, concentration, fund of knowledge poor, consistent with her diagnoses. Met with the patient in her room. She was pleasant, smiling, oblivious of her surroundings, unaware of what she had had for supper as I questioned her. LABORATORY DATA: Reviewed. IMPRESSION: Major neurocognitive disorder, Alzheimer, vascular with depression, delusion, behavioral disturbance. PLAN: Continue current psychotropics. She seems to be less psychotic, less labile with an improved mood. MAN April SANTIAGO MD DR: YANIV/damián JOB#: [id number] / [id number]
[2017-06-22] MEDS ORDERED: MAGNESIUM HYDROXIDE 2,400 MG/30 ML ORAL.SUSP. PO PRN (10:15)
[2017-06-22 16:31] VITALS: BP 119/56
[2017-06-22] MEDS: OMEGA-3 FATTY ACIDS/FISH OIL 1,000 MG CAPSULE. PO SCH (17:27)
--- NOTE | 2017-06-22 19:36 | PDOC ---
Exam Note: Santhosh Note: Please also refer to the separate dictated note~for this date of service dictated separately.~Patient seen individually. Discussed the patient with Nursing staff reviewed the chart.~Reviewed interim history and current functioning. Reviewed vital signs,~Labs/ Radiology~and current medications noted below. Continue current treatment with the changes noted in the dictated addendum note Assessment: Vital Signs: Vital Signs Date Time Temp Pulse Resp B/P (MAP) Pulse Ox O2 Delivery O2 Flow Rate FiO2 06/22/17 16:31 98.0 76 16 119/56 (77) 97 06/17/17 16:26 Room Air I&O Intake and Output 06/22/17 07:00 Intake Total 960 ml Balance 960 ml Intake Oral 960 ml # Voids 2 Current Medications: Meds: Current Medications Amlodipine Besylate (Norvasc) 2.5 mg DAILY PO Last administered on 06/07/17 08 :34; Start 06/07/17 at 09:00; Stop 06/07/17 at 18:17; Status DC Metoprolol Tartrate (Lopressor) 12.5 mg BID PO Last administered on 06/22/17 08:36; Start 06/07/17 at 09:00 Atorvastatin Calcium (Lipitor) 40 mg QHS PO Last administered on 06/21/17 21: 03; Start 06/07/17 at 21:00 Fish Oil (Fish Oil) 1,000 mg QPM PO Last administered on 06/22/17 17:27; Start 06/07/17 at 18:00 Fish Oil (Fish Oil) 1,000 mg QODAY PO Last administered on 06/21/17at 09:12; Start 06/09/17 at 09:00 Amlodipine Besylate (Norvasc) 5 mg DAILY PO Last administered on 06/22/17 08: 34; Start 06/08/17 at 09:00 Vitamin D (Vitamin D3) 50,000 unit WEEKLY PO Last administered on 06/21/17at 09: 12; Start 06/07/17 at 19:00 Olanzapine (ZyPREXA ZYDIS) 2.5 mg PRN Q2HR PRN PO PSYCHOSIS; Start 06/08/17 at 09:00 Quetiapine Fumarate (SEROquel) 12.5 mg TID@0900,1700,2100 PO Last administered on 06/22/17 17:27; Start 06/08/17 at 21:00 Mirtazapine (Remeron) 7.5 mg QHS PO Last administered on 06/21/17 21:04; Start 06/09/17 at 21:00 Trazodone HCl (Desyrel) 25 mg PRN QHS PRN PO INSOMNIA, MAY REPEAT X1 Last administered on 06/20/17 21:01; Start 06/09/17 at 18:15 Sertraline HCl (Zoloft) 25 mg DAILY PO Last administered on 06/13/17at 08:41; Start 06/12/17 at 09:00; Stop 06/13/17 at 21:04; Status DC Sertraline HCl (Zoloft) 50 mg DAILY PO Last administered on 06/17/17 09:16; Start 06/14/17 at 09:00; Stop 06/17/17 at 15:44; Status DC Sertraline HCl (Zoloft) 75 mg DAILY PO Last administered on 06/22/17 08:34; Start 06/18/17 at 09:00 Magnesium Hydroxide (Milk Of Magnesia) 2,400 mg PRN DAILY PRN PO CONSTIPATION Last administered on 06/22/17 17:28; Start 06/22/17 at 10:15 Active Scripts Active Reported [place] 3 1,000 Mg Softgel ([place]-3 Fatty Acids/Fish Oil) 1 Each Capsule 1 Each PO QODAY [place] 3 1,000 Mg Softgel ([place]-3 Fatty Acids/Fish Oil) 1 Each Capsule 1,000 Mg PO QPM Atorvastatin Calcium 40 Mg Tablet 40 Mg PO QHS Norvasc (Amlodipine Besylate) 2.5 Mg Tablet 2.5 Mg PO DAILY Metoprolol Tartrate 25 Mg Tablet 12.5 Mg PO BID I have reviewed the current psychotropics carefully including drug interactions. Risk benefit ratio favors no change other than as noted in my dictated progress note. Diagnosis: Problems: (1) Dementia (2) Paranoia (psychosis) (3) Neurocognitive disorder (4) Cerebrovascular accident (CVA) involving anterior circulation of right side JESSICA SANTIAGO MD Jun 22, 2017 19:36
[2017-06-22] MEDS: ATORVASTATIN CALCIUM 20 MG TABLET PO SCH (21:05)
[2017-06-22] MEDS: MIRTAZAPINE 7.5 MG TABLET. PO SCH (21:05)
[2017-06-23 06:10] VITALS: BP 124/69
[2017-06-23] MEDS: OMEGA-3 FATTY ACIDS/FISH OIL 1,000 MG CAPSULE. PO SCH ×2 (09:01→17:42)
[2017-06-23] MEDS: SERTRALINE 50 MG TABLET. PO SCH (09:02)
[2017-06-23] MEDS: QUEtiapine 25 MG TABLET. PO SCH ×3 (09:02→20:30)
[2017-06-23] MEDS: METOPROLOL TART IMMED RELEASE 25 MG TABLET PO SCH ×2 (09:02→20:27)
[2017-06-23] MEDS: amLODIPine BESYLATE 5 MG TABLET PO SCH (09:03)
--- NOTE | 2017-06-23 10:56 | PN ---
DATE: 06/21/2017 This is a late entry 06/21, covers elements not covered in my initial note 06/21. SUBJECTIVE: I met with the patient in the evening of 06/21. The patient is compliant with her medications, slept 7 hours previous evening, withdrawn to her room, which is where I met with her. REVIEW OF SYSTEMS: No CV, , pulmonary, eye, ENT system symptoms on review. Reliability poor. MENTAL STATUS EXAM: Oriented to herself. Insight, judgment, recent and remote memory, attention, concentration, fund of knowledge poor, consistent with her diagnosis mentioned in my initial note. IMPRESSION: Major neurocognitive disorder, Alzheimer, vascular with depression, delusion, behavioral disturbance. Rest unchanged. PLAN: Continue psychotropics mentioned in my initial note. Discussed with social service staff about placement options, but the daughter may want her to return home. Discussed pros and cons of this. MAN April SANTIAGO MD DR: YANIV/damián JOB#: [id number] / [id number]
[2017-06-23 15:53] VITALS: BP 139/50
--- NOTE | 2017-06-23 19:55 | PDOC ---
Exam Note: Santhosh Note: Please also refer to the separate dictated note~for this date of service dictated separately.~Patient seen individually. Discussed the patient with Nursing staff reviewed the chart.~Reviewed interim history and current functioning. Reviewed vital signs,~Labs/ Radiology~and current medications noted below. Continue current treatment with the changes noted in the dictated addendum note Assessment: Vital Signs: Vital Signs Date Time Temp Pulse Resp B/P (MAP) Pulse Ox O2 Delivery O2 Flow Rate FiO2 06/23/17 15:53 97.8 64 18 139/50 (79) 98 06/17/17 16:26 Room Air I&O Intake and Output 06/23/17 07:00 Intake Total 1080 ml Balance 1080 ml Intake Oral 1080 ml # Voids 2 # Bowel Movements 2 Current Medications: Meds: Current Medications Amlodipine Besylate (Norvasc) 2.5 mg DAILY PO Last administered on 06/07/17 08 :34; Start 06/07/17 at 09:00; Stop 06/07/17 at 18:17; Status DC Metoprolol Tartrate (Lopressor) 12.5 mg BID PO Last administered on 06/23/17 09:02; Start 06/07/17 at 09:00 Atorvastatin Calcium (Lipitor) 40 mg QHS PO Last administered on 06/22/17 21: 05; Start 06/07/17 at 21:00 Fish Oil (Fish Oil) 1,000 mg QPM PO Last administered on 06/23/17 17:42; Start 06/07/17 at 18:00 Fish Oil (Fish Oil) 1,000 mg QODAY PO Last administered on 06/23/17 09:01; Start 06/09/17 at 09:00 Amlodipine Besylate (Norvasc) 5 mg DAILY PO Last administered on 06/23/17 09: 03; Start 06/08/17 at 09:00 Vitamin D (Vitamin D3) 50,000 unit WEEKLY PO Last administered on 06/21/17 09: 12; Start 06/07/17 at 19:00 Olanzapine (ZyPREXA ZYDIS) 2.5 mg PRN Q2HR PRN PO PSYCHOSIS; Start 06/08/17 at 09:00 Quetiapine Fumarate (SEROquel) 12.5 mg TID@0900,1700,2100 PO Last administered on 06/23/17 17:08; Start 06/08/17 at 21:00 Mirtazapine (Remeron) 7.5 mg QHS PO Last administered on 06/22/17 21:05; Start 06/09/17 at 21:00 Trazodone HCl (Desyrel) 25 mg PRN QHS PRN PO INSOMNIA, MAY REPEAT X1 Last administered on 06/20/17 21:01; Start 06/09/17 at 18:15 Sertraline HCl (Zoloft) 25 mg DAILY PO Last administered on 06/13/17 08:41; Start 06/12/17 at 09:00; Stop 06/13/17 at 21:04; Status DC Sertraline HCl (Zoloft) 50 mg DAILY PO Last administered on 06/17/17 09:16; Start 06/14/17 at 09:00; Stop 06/17/17 at 15:44; Status DC Sertraline HCl (Zoloft) 75 mg DAILY PO Last administered on 06/23/17 09:02; Start 06/18/17 at 09:00 Magnesium Hydroxide (Milk Of Magnesia) 2,400 mg PRN DAILY PRN PO CONSTIPATION Last administered on 06/22/17 17:28; Start 06/22/17 at 10:15 Active Scripts Active Reported [place] 3 1,000 Mg Softgel ([place]-3 Fatty Acids/Fish Oil) 1 Each Capsule 1 Each PO QODAY [place] 3 1,000 Mg Softgel ([place]-3 Fatty Acids/Fish Oil) 1 Each Capsule 1,000 Mg PO QPM Atorvastatin Calcium 40 Mg Tablet 40 Mg PO QHS Norvasc (Amlodipine Besylate) 2.5 Mg Tablet 2.5 Mg PO DAILY Metoprolol Tartrate 25 Mg Tablet 12.5 Mg PO BID I have reviewed the current psychotropics carefully including drug interactions. Risk benefit ratio favors no change other than as noted in my dictated progress note. Diagnosis: Problems: (1) Dementia (2) Paranoia (psychosis) (3) Neurocognitive disorder (4) Cerebrovascular accident (CVA) involving anterior circulation of right side JESSICA SANTIAGO MD Jun 23, 2017 19:55
[2017-06-23] MEDS: MIRTAZAPINE 7.5 MG TABLET. PO SCH (20:26)
[2017-06-23] MEDS: ATORVASTATIN CALCIUM 20 MG TABLET PO SCH (20:27)
[2017-06-24 05:38] VITALS: BP 139/57
--- NOTE | 2017-06-24 07:27 | PN ---
DATE: 06/22/2017 PSYCHIATRIC PROGRESS NOTE This late entry 06/22/2017 covers elements not covered in my initial note 06/22/2017. SUBJECTIVE: I met with the patient evening of 06/22/2017. The patient slept 7-1/2 hours previous evening, compliant with medications, somewhat withdrawn, confused, but otherwise pleasant, verbal, smiling as I met with her, not aggressive, less paranoid. REVIEW OF SYSTEMS: No CV, , pulmonary, eye, ENT system symptoms on review. Reliability poor. MENTAL STATUS EXAM: Oriented to herself. Insight, judgment, recent and remote memory, attention, concentration, fund of knowledge poor, consistent with her diagnosis mentioned in my initial note. IMPRESSION: Major neurocognitive disorder, Alzheimer, vascular with depression, delusion, behavioral disturbance. Rest unchanged. PLAN: Continue current psychotropics mentioned in my initial note. Adjust further as clinically indicated. Possible transition home in the next few days unless family agrees to placement. JESSICA SANTIAGO MD DR: YANIV/damián JOB#: [id number] / [id number]
[2017-06-24 08:20] VITALS: BP 169/69
[2017-06-24] MEDS: QUEtiapine 25 MG TABLET. PO SCH ×3 (08:56→20:30)
[2017-06-24] MEDS: amLODIPine BESYLATE 5 MG TABLET PO SCH (08:56)
[2017-06-24] MEDS: METOPROLOL TART IMMED RELEASE 25 MG TABLET PO SCH ×2 (08:56→20:29)
[2017-06-24] MEDS: SERTRALINE 50 MG TABLET. PO SCH (08:56)
[2017-06-24 15:43] VITALS: BP 176/63
[2017-06-24] MEDS: OMEGA-3 FATTY ACIDS/FISH OIL 1,000 MG CAPSULE. PO SCH (16:53)
--- NOTE | 2017-06-24 20:07 | PDOC ---
Exam Note: Santhosh Note: Please also refer to the separate dictated note~for this date of service dictated separately.~Patient seen individually. Discussed the patient with Nursing staff reviewed the chart.~Reviewed interim history and current functioning. Reviewed vital signs,~Labs/ Radiology~and current medications noted below. Continue current treatment with the changes noted in the dictated addendum note Assessment: Vital Signs: Vital Signs Date Time Temp Pulse Resp B/P (MAP) Pulse Ox O2 Delivery O2 Flow Rate FiO2 06/24/17 15:43 97.7 69 18 176/63 (100) 97 Room Air I&O Intake and Output 06/24/17 07:00 Intake Total 840 ml Balance 840 ml Intake Oral 840 ml Current Medications: Meds: Current Medications Amlodipine Besylate (Norvasc) 2.5 mg DAILY PO Last administered on 06/07/17 08 :34; Start 06/07/17 at 09:00; Stop 06/07/17 at 18:17; Status DC Metoprolol Tartrate (Lopressor) 12.5 mg BID PO Last administered on 06/24/17 08 :56; Start 06/07/17 at 09:00 Atorvastatin Calcium (Lipitor) 40 mg QHS PO Last administered on 06/23/17 20: 27; Start 06/07/17 at 21:00 Fish Oil (Fish Oil) 1,000 mg QPM PO Last administered on 06/24/17 16:53; Start 06/07/17 at 18:00 Fish Oil (Fish Oil) 1,000 mg QODAY PO Last administered on 06/23/17 09:01; Start 06/09/17 at 09:00 Amlodipine Besylate (Norvasc) 5 mg DAILY PO Last administered on 06/24/17 08:56 ; Start 06/08/17 at 09:00 Vitamin D (Vitamin D3) 50,000 unit WEEKLY PO Last administered on 06/21/17at 09: 12; Start 06/07/17 at 19:00 Olanzapine (ZyPREXA ZYDIS) 2.5 mg PRN Q2HR PRN PO PSYCHOSIS; Start 06/08/17 at 09:00 Quetiapine Fumarate (SEROquel) 12.5 mg TID@0900,1700,2100 PO Last administered on 06/24/17 16:54; Start 06/08/17 at 21:00 Mirtazapine (Remeron) 7.5 mg QHS PO Last administered on 06/23/17at 20:26; Start 06/09/17 at 21:00 Trazodone HCl (Desyrel) 25 mg PRN QHS PRN PO INSOMNIA, MAY REPEAT X1 Last administered on 06/20/17at 21:01; Start 06/09/17 at 18:15 Sertraline HCl (Zoloft) 25 mg DAILY PO Last administered on 06/13/17at 08:41; Start 06/12/17 at 09:00; Stop 06/13/17 at 21:04; Status DC Sertraline HCl (Zoloft) 50 mg DAILY PO Last administered on 06/17/17at 09:16; Start 06/14/17 at 09:00; Stop 06/17/17 at 15:44; Status DC Sertraline HCl (Zoloft) 75 mg DAILY PO Last administered on 06/24/17 08:56; Start 06/18/17 at 09:00 Magnesium Hydroxide (Milk Of Magnesia) 2,400 mg PRN DAILY PRN PO CONSTIPATION Last administered on 06/22/17 17:28; Start 06/22/17 at 10:15 Active Scripts Active Reported [place] 3 1,000 Mg Softgel ([place]-3 Fatty Acids/Fish Oil) 1 Each Capsule 1 Each PO QODAY [place] 3 1,000 Mg Softgel ([place]-3 Fatty Acids/Fish Oil) 1 Each Capsule 1,000 Mg PO QPM Atorvastatin Calcium 40 Mg Tablet 40 Mg PO QHS Norvasc (Amlodipine Besylate) 2.5 Mg Tablet 2.5 Mg PO DAILY Metoprolol Tartrate 25 Mg Tablet 12.5 Mg PO BID I have reviewed the current psychotropics carefully including drug interactions. Risk benefit ratio favors no change other than as noted in my dictated progress note. Diagnosis: Problems: (1) Dementia (2) Paranoia (psychosis) (3) Neurocognitive disorder (4) Cerebrovascular accident (CVA) involving anterior circulation of right side JESSICA SANTIAGO MD Jun 24, 2017 20:07
[2017-06-24] MEDS: ATORVASTATIN CALCIUM 20 MG TABLET PO SCH (20:30)
[2017-06-24] MEDS: MIRTAZAPINE 7.5 MG TABLET. PO SCH (20:30)
[2017-06-25 06:38] VITALS: BP 142/58
[2017-06-25] MEDS: SERTRALINE 50 MG TABLET. PO SCH (08:06)
[2017-06-25] MEDS: amLODIPine BESYLATE 5 MG TABLET PO SCH (08:06)
[2017-06-25] MEDS: METOPROLOL TART IMMED RELEASE 25 MG TABLET PO SCH ×2 (08:07→19:33)
[2017-06-25] MEDS: QUEtiapine 25 MG TABLET. PO SCH ×3 (08:07→19:33)
[2017-06-25] MEDS: OMEGA-3 FATTY ACIDS/FISH OIL 1,000 MG CAPSULE. PO SCH ×2 (08:28→17:44)
[2017-06-25 16:18] VITALS: BP 141/59
[2017-06-25] MEDS: ATORVASTATIN CALCIUM 20 MG TABLET PO SCH (19:32)
[2017-06-25] MEDS: MIRTAZAPINE 7.5 MG TABLET. PO SCH (19:32)
--- NOTE | 2017-06-25 22:18 | PN ---
DATE: 06/23/2017 This late entry for 06/23/2017 covers elements not covered in my initial note of 06/23/2017. SUBJECTIVE: I met with the patient in the evening of 06/23/2017. Overall, the patient has had a good days, confused, somewhat sarcastic, coming out more from her room. REVIEW OF SYSTEMS: No CV, , pulmonary, eye, ENT system symptoms on review. Reliability poor. MENTAL STATUS EXAM: Oriented to herself. Insight, judgment, recent and remote memory, attention, concentration, fund of knowledge poor, consistent with her diagnosis mentioned in my initial note. IMPRESSION: Major neurocognitive disorder, Alzheimer, vascular with depression, delusion, behavioral disturbance. Rest unchanged. PLAN: Continue current psychotropics mentioned in my initial note. MAN April SANTIAGO MD DR: YANIV/damián JOB#: [id number] / [id number]
--- NOTE | 2017-06-25 22:24 | PDOC ---
Exam Note: Santhosh Note: Please also refer to the separate dictated note~for this date of service dictated separately.~Patient seen individually. Discussed the patient with Nursing staff reviewed the chart.~Reviewed interim history and current functioning. Reviewed vital signs,~Labs/ Radiology~and current medications noted below. Continue current treatment with the changes noted in the dictated addendum note Assessment: Vital Signs: Vital Signs Date Time Temp Pulse Resp B/P (MAP) Pulse Ox O2 Delivery O2 Flow Rate FiO2 06/25/17 19:33 68 141/59 06/25/17 16:18 98.4 16 95 Room Air I&O Intake and Output 06/25/17 07:00 Intake Total 660 ml Balance 660 ml Intake Oral 660 ml Current Medications: Meds: Current Medications Amlodipine Besylate (Norvasc) 2.5 mg DAILY PO Last administered on 06/07/17 08 :34; Start 06/07/17 at 09:00; Stop 06/07/17 at 18:17; Status DC Metoprolol Tartrate (Lopressor) 12.5 mg BID PO Last administered on 06/25/17 19 :33; Start 06/07/17 at 09:00 Atorvastatin Calcium (Lipitor) 40 mg QHS PO Last administered on 06/25/17 19:32 ; Start 06/07/17 at 21:00 Fish Oil (Fish Oil) 1,000 mg QPM PO Last administered on 06/25/17 17:44; Start 06/07/17 at 18:00 Fish Oil (Fish Oil) 1,000 mg QODAY PO Last administered on 06/25/17 08:28; Start 06/09/17 at 09:00 Amlodipine Besylate (Norvasc) 5 mg DAILY PO Last administered on 06/25/17 08:06 ; Start 06/08/17 at 09:00 Vitamin D (Vitamin D3) 50,000 unit WEEKLY PO Last administered on 06/21/17at 09: 12; Start 06/07/17 at 19:00 Olanzapine (ZyPREXA ZYDIS) 2.5 mg PRN Q2HR PRN PO PSYCHOSIS; Start 06/08/17 at 09:00 Quetiapine Fumarate (SEROquel) 12.5 mg TID@0900,1700,2100 PO Last administered on 06/25/17 19:33; Start 06/08/17 at 21:00 Mirtazapine (Remeron) 7.5 mg QHS PO Last administered on 06/25/17 19:32; Start 06/09/17 at 21:00 Trazodone HCl (Desyrel) 25 mg PRN QHS PRN PO INSOMNIA, MAY REPEAT X1 Last administered on 06/20/17at 21:01; Start 06/09/17 at 18:15 Sertraline HCl (Zoloft) 25 mg DAILY PO Last administered on 06/13/17at 08:41; Start 06/12/17 at 09:00; Stop 06/13/17 at 21:04; Status DC Sertraline HCl (Zoloft) 50 mg DAILY PO Last administered on 06/17/17at 09:16; Start 06/14/17 at 09:00; Stop 06/17/17 at 15:44; Status DC Sertraline HCl (Zoloft) 75 mg DAILY PO Last administered on 06/25/17 08:06; Start 06/18/17 at 09:00 Magnesium Hydroxide (Milk Of Magnesia) 2,400 mg PRN DAILY PRN PO CONSTIPATION Last administered on 06/22/17 17:28; Start 06/22/17 at 10:15 Active Scripts Active Reported [place] 3 1,000 Mg Softgel ([place]-3 Fatty Acids/Fish Oil) 1 Each Capsule 1 Each PO QODAY [place] 3 1,000 Mg Softgel ([place]-3 Fatty Acids/Fish Oil) 1 Each Capsule 1,000 Mg PO QPM Atorvastatin Calcium 40 Mg Tablet 40 Mg PO QHS Norvasc (Amlodipine Besylate) 2.5 Mg Tablet 2.5 Mg PO DAILY Metoprolol Tartrate 25 Mg Tablet 12.5 Mg PO BID I have reviewed the current psychotropics carefully including drug interactions. Risk benefit ratio favors no change other than as noted in my dictated progress note. Diagnosis: Problems: (1) Dementia (2) Paranoia (psychosis) (3) Neurocognitive disorder (4) Cerebrovascular accident (CVA) involving anterior circulation of right side JESSICA SANTIAGO MD Jun 25, 2017 22:24
--- NOTE | 2017-06-26 00:16 | PN ---
DATE: 06/24/2017 This is a late entry for 06/24/2017 covers elements not covered in my initial note of 06/24/2017. SUBJECTIVE: The patient staffed at a treatment team meeting morning of 06/24/2017 with the entire team and Deborah, patient's daughter attended. Lengthy discussion about the patient's history, placement options, improvement, response to treatment so far. She is confused, exit seeking after the family visit. REVIEW OF SYSTEMS: No CV, , pulmonary, eye, ENT system symptoms on review. Sleeping 6-7 hours, less withdrawn, not attending groups. Appetite is fair. MENTAL STATUS EXAM: Oriented to herself. Insight, judgment, recent and remote memory, attention, concentration, fund of knowledge poor, consistent with her diagnosis mentioned in my initial note. PLAN: Continue psychotropics mentioned in my initial note for now. MAN April SANTIAGO MD DR: YANIV/damián JOB#: [id number] / [id number]
[2017-06-26 06:35] VITALS: BP 149/55
[2017-06-26] MEDS: SERTRALINE 50 MG TABLET. PO SCH (07:36)
[2017-06-26] MEDS: METOPROLOL TART IMMED RELEASE 25 MG TABLET PO SCH ×2 (07:37→19:56)
[2017-06-26] MEDS: QUEtiapine 25 MG TABLET. PO SCH ×3 (07:38→19:56)
[2017-06-26] MEDS: amLODIPine BESYLATE 5 MG TABLET PO SCH (07:38)
[2017-06-26 16:42] VITALS: BP 157/74
[2017-06-26] MEDS: OMEGA-3 FATTY ACIDS/FISH OIL 1,000 MG CAPSULE. PO SCH (18:27)
[2017-06-26] MEDS: ATORVASTATIN CALCIUM 20 MG TABLET PO SCH (19:55)
[2017-06-26] MEDS: MIRTAZAPINE 7.5 MG TABLET. PO SCH (19:55)
--- NOTE | 2017-06-26 21:09 | PDOC ---
Exam Note: Santhosh Note: Please also refer to the separate dictated note~for this date of service dictated separately.~Patient seen individually. Discussed the patient with Nursing staff reviewed the chart.~Reviewed interim history and current functioning. Reviewed vital signs,~Labs/ Radiology~and current medications noted below. Continue current treatment with the changes noted in the dictated addendum note Assessment: Vital Signs: Vital Signs Date Time Temp Pulse Resp B/P (MAP) Pulse Ox O2 Delivery O2 Flow Rate FiO2 06/26/17 19:56 65 157/74 06/26/17 16:42 98.1 20 98 Room Air I&O Intake and Output 06/26/17 07:00 Intake Total 1080 ml Balance 1080 ml Intake Oral 1080 ml Current Medications: Meds: Current Medications Amlodipine Besylate (Norvasc) 2.5 mg DAILY PO Last administered on 06/07/17 08 :34; Start 06/07/17 at 09:00; Stop 06/07/17 at 18:17; Status DC Metoprolol Tartrate (Lopressor) 12.5 mg BID PO Last administered on 06/26/17 19 :56; Start 06/07/17 at 09:00 Atorvastatin Calcium (Lipitor) 40 mg QHS PO Last administered on 06/26/17 19:55 ; Start 06/07/17 at 21:00 Fish Oil (Fish Oil) 1,000 mg QPM PO Last administered on 06/26/17 18:27; Start 06/07/17 at 18:00 Fish Oil (Fish Oil) 1,000 mg QODAY PO Last administered on 06/25/17 08:28; Start 06/09/17 at 09:00 Amlodipine Besylate (Norvasc) 5 mg DAILY PO Last administered on 06/26/17 07:38 ; Start 06/08/17 at 09:00 Vitamin D (Vitamin D3) 50,000 unit WEEKLY PO Last administered on 06/21/17 09: 12; Start 06/07/17 at 19:00 Olanzapine (ZyPREXA ZYDIS) 2.5 mg PRN Q2HR PRN PO PSYCHOSIS; Start 06/08/17 at 09:00 Quetiapine Fumarate (SEROquel) 12.5 mg TID@0900,1700,2100 PO Last administered on 06/26/17 19:56; Start 06/08/17 at 21:00 Mirtazapine (Remeron) 7.5 mg QHS PO Last administered on 06/26/17 19:55; Start 06/09/17 at 21:00 Trazodone HCl (Desyrel) 25 mg PRN QHS PRN PO INSOMNIA, MAY REPEAT X1 Last administered on 06/20/17at 21:01; Start 06/09/17 at 18:15 Sertraline HCl (Zoloft) 25 mg DAILY PO Last administered on 06/13/17at 08:41; Start 06/12/17 at 09:00; Stop 06/13/17 at 21:04; Status DC Sertraline HCl (Zoloft) 50 mg DAILY PO Last administered on 06/17/17at 09:16; Start 06/14/17 at 09:00; Stop 06/17/17 at 15:44; Status DC Sertraline HCl (Zoloft) 75 mg DAILY PO Last administered on 06/26/17 07:36; Start 06/18/17 at 09:00 Magnesium Hydroxide (Milk Of Magnesia) 2,400 mg PRN DAILY PRN PO CONSTIPATION Last administered on 06/22/17 17:28; Start 06/22/17 at 10:15 Active Scripts Active Reported [place] 3 1,000 Mg Softgel ([place]-3 Fatty Acids/Fish Oil) 1 Each Capsule 1 Each PO QODAY [place] 3 1,000 Mg Softgel ([place]-3 Fatty Acids/Fish Oil) 1 Each Capsule 1,000 Mg PO QPM Atorvastatin Calcium 40 Mg Tablet 40 Mg PO QHS Norvasc (Amlodipine Besylate) 2.5 Mg Tablet 2.5 Mg PO DAILY Metoprolol Tartrate 25 Mg Tablet 12.5 Mg PO BID I have reviewed the current psychotropics carefully including drug interactions. Risk benefit ratio favors no change other than as noted in my dictated progress note. Diagnosis: Problems: (1) Dementia (2) Paranoia (psychosis) (3) Neurocognitive disorder (4) Cerebrovascular accident (CVA) involving anterior circulation of right side JESSICA SANTIAGO MD Jun 26, 2017 21:09
[2017-06-27 06:26] VITALS: BP 176/69
[2017-06-27] MEDS: amLODIPine BESYLATE 5 MG TABLET PO SCH (07:35)
[2017-06-27] MEDS: QUEtiapine 25 MG TABLET. PO SCH ×3 (07:36→20:04)
[2017-06-27] MEDS: METOPROLOL TART IMMED RELEASE 25 MG TABLET PO SCH ×2 (07:36→21:00)
[2017-06-27] MEDS: SERTRALINE 50 MG TABLET. PO SCH (07:36)
[2017-06-27] MEDS: OMEGA-3 FATTY ACIDS/FISH OIL 1,000 MG CAPSULE. PO SCH ×2 (07:38→18:16)
[2017-06-27 16:15] VITALS: BP 142/53
--- NOTE | 2017-06-27 18:52 | PN ---
DATE: 06/25/2017 PSYCHIATRIC PROGRESS NOTE This is a late entry for 06/25/2017, covers elements not covered in my initial note of 06/25/2017. SUBJECTIVE: I met with the patient the evening of 06/25/2017. The patient remains confused, otherwise pleasant, spends much time in her room, sarcastic at times. REVIEW OF SYSTEMS: No CV, , pulmonary, eye, ENT system symptoms on review. Reliability poor. MENTAL STATUS EXAM: Oriented to herself. Insight, judgment, recent and remote memory, attention, concentration, fund of knowledge poor, consistent with her diagnosis mentioned in my initial note. PLAN: Unchanged from initial note. MAN April SANTIAGO MD DR: YANIV/damián JOB#: [id number] / [id number]
--- NOTE | 2017-06-27 18:52 | PN ---
DATE: 06/26/2017 PSYCHIATRIC PROGRESS NOTE This late entry 06/26/2017 covers elements not covered in my initial note of 06/26/2017. SUBJECTIVE: Met the patient in the evening of 06/26/2017. The patient has been withdrawn, but calm, compliant, coming out of the room a little bit more, still sarcastic. REVIEW OF SYSTEMS: No CV, , pulmonary, eye system symptoms on review. MENTAL STATUS EXAM: Oriented to herself. Insight, judgment, recent and remote memory, attention, concentration, fund of knowledge is poor, consistent with her diagnoses mentioned in my initial note. IMPRESSION: Major neurocognitive disorder, Alzheimer, vascular with delusion, depression, behavioral disturbance. PLAN: Continue psychotropics mentioned in my initial note. MAN April SANTIAGO MD DR: YANIV/damián JOB#: [id number] / [id number]
[2017-06-27] MEDS: ATORVASTATIN CALCIUM 20 MG TABLET PO SCH (20:03)
[2017-06-27] MEDS: MIRTAZAPINE 7.5 MG TABLET. PO SCH (20:04)
--- NOTE | 2017-06-27 20:12 | PDOC ---
Exam Note: Santhosh Note: Please also refer to the separate dictated note~for this date of service dictated separately.~Patient seen individually. Discussed the patient with Nursing staff reviewed the chart.~Reviewed interim history and current functioning. Reviewed vital signs,~Labs/ Radiology~and current medications noted below. Continue current treatment with the changes noted in the dictated addendum note Assessment: Vital Signs: Vital Signs Date Time Temp Pulse Resp B/P (MAP) Pulse Ox O2 Delivery O2 Flow Rate FiO2 06/27/17 16:15 97.7 68 16 142/53 (82) 98 06/26/17 16:42 Room Air I&O Intake and Output 06/27/17 07:00 Intake Total 1080 ml Balance 1080 ml Intake Oral 1080 ml Current Medications: Meds: Current Medications Amlodipine Besylate (Norvasc) 2.5 mg DAILY PO Last administered on 06/07/17 08 :34; Start 06/07/17 at 09:00; Stop 06/07/17 at 18:17; Status DC Metoprolol Tartrate (Lopressor) 12.5 mg BID PO Last administered on 06/27/17 07 :36; Start 06/07/17 at 09:00 Atorvastatin Calcium (Lipitor) 40 mg QHS PO Last administered on 06/26/17 19:55 ; Start 06/07/17 at 21:00 Fish Oil (Fish Oil) 1,000 mg QPM PO Last administered on 06/27/17 18:16; Start 06/07/17 at 18:00 Fish Oil (Fish Oil) 1,000 mg QODAY PO Last administered on 06/27/17 07:38; Start 06/09/17 at 09:00 Amlodipine Besylate (Norvasc) 5 mg DAILY PO Last administered on 06/27/17 07:35 ; Start 06/08/17 at 09:00 Vitamin D (Vitamin D3) 50,000 unit WEEKLY PO Last administered on 06/21/17 09: 12; Start 06/07/17 at 19:00 Olanzapine (ZyPREXA ZYDIS) 2.5 mg PRN Q2HR PRN PO PSYCHOSIS; Start 06/08/17 at 09:00 Quetiapine Fumarate (SEROquel) 12.5 mg TID@0900,1700,2100 PO Last administered on 3/4/18at 18:16; Start 06/08/17 at 21:00 Mirtazapine (Remeron) 7.5 mg QHS PO Last administered on 06/26/17at 19:55; Start 06/09/17 at 21:00 Trazodone HCl (Desyrel) 25 mg PRN QHS PRN PO INSOMNIA, MAY REPEAT X1 Last administered on 06/20/17at 21:01; Start 06/09/17 at 18:15 Sertraline HCl (Zoloft) 25 mg DAILY PO Last administered on 06/13/17at 08:41; Start 06/12/17 at 09:00; Stop 06/13/17 at 21:04; Status DC Sertraline HCl (Zoloft) 50 mg DAILY PO Last administered on 06/17/17at 09:16; Start 06/14/17 at 09:00; Stop 06/17/17 at 15:44; Status DC Sertraline HCl (Zoloft) 75 mg DAILY PO Last administered on 06/27/17at 07:36; Start 06/18/17 at 09:00 Magnesium Hydroxide (Milk Of Magnesia) 2,400 mg PRN DAILY PRN PO CONSTIPATION Last administered on 06/22/17at 17:28; Start 06/22/17 at 10:15 Active Scripts Active Reported [place] 3 1,000 Mg Softgel ([place]-3 Fatty Acids/Fish Oil) 1 Each Capsule 1 Each PO QODAY [place] 3 1,000 Mg Softgel ([place]-3 Fatty Acids/Fish Oil) 1 Each Capsule 1,000 Mg PO QPM Atorvastatin Calcium 40 Mg Tablet 40 Mg PO QHS Norvasc (Amlodipine Besylate) 2.5 Mg Tablet 2.5 Mg PO DAILY Metoprolol Tartrate 25 Mg Tablet 12.5 Mg PO BID I have reviewed the current psychotropics carefully including drug interactions. Risk benefit ratio favors no change other than as noted in my dictated progress note. Diagnosis: Problems: (1) Dementia (2) Paranoia (psychosis) (3) Neurocognitive disorder (4) Cerebrovascular accident (CVA) involving anterior circulation of right side JESSICA SANTIAGO MD Jun 27, 2017 20:12
[2017-06-28 06:27] VITALS: BP 149/55
[2017-06-28] MEDS: CHOLECALCIFEROL (VITAMIN D3) 50,000 UNIT CAPSULE PO SCH (09:00)
[2017-06-28] MEDS: amLODIPine BESYLATE 5 MG TABLET PO SCH (09:19)
[2017-06-28] MEDS: SERTRALINE 50 MG TABLET. PO SCH (09:19)
[2017-06-28] MEDS: METOPROLOL TART IMMED RELEASE 25 MG TABLET PO SCH ×2 (09:20→19:43)
[2017-06-28] MEDS: QUEtiapine 25 MG TABLET. PO SCH ×3 (09:20→19:43)
[2017-06-28 16:27] VITALS: BP 183/76
[2017-06-28] MEDS: OMEGA-3 FATTY ACIDS/FISH OIL 1,000 MG CAPSULE. PO SCH (16:27)
[2017-06-28] MEDS: MIRTAZAPINE 7.5 MG TABLET. PO SCH (19:43)
[2017-06-28] MEDS: ATORVASTATIN CALCIUM 20 MG TABLET PO SCH (19:44)
--- NOTE | 2017-06-28 20:00 | PDOC ---
Exam Note: Santhosh Note: Please also refer to the separate dictated note~for this date of service dictated separately.~Patient seen individually. Discussed the patient with Nursing staff reviewed the chart.~Reviewed interim history and current functioning. Reviewed vital signs,~Labs/ Radiology~and current medications noted below. Continue current treatment with the changes noted in the dictated addendum note Assessment: Vital Signs: Vital Signs Date Time Temp Pulse Resp B/P (MAP) Pulse Ox O2 Delivery O2 Flow Rate FiO2 06/28/17 19:43 64 183/76 06/28/17 16:27 97.7 18 98 06/26/17 16:42 Room Air I&O Intake and Output 06/28/17 07:00 Intake Total 1080 ml Balance 1080 ml Intake Oral 1080 ml Current Medications: Meds: Current Medications Amlodipine Besylate (Norvasc) 2.5 mg DAILY PO Last administered on 06/07/17 08 :34; Start 06/07/17 at 09:00; Stop 06/07/17 at 18:17; Status DC Metoprolol Tartrate (Lopressor) 12.5 mg BID PO Last administered on 06/28/17 19 :43; Start 06/07/17 at 09:00 Atorvastatin Calcium (Lipitor) 40 mg QHS PO Last administered on 06/28/17 19:44 ; Start 06/07/17 at 21:00 Fish Oil (Fish Oil) 1,000 mg QPM PO Last administered on 06/28/17 16:27; Start 06/07/17 at 18:00 Fish Oil (Fish Oil) 1,000 mg QODAY PO Last administered on 06/27/17 07:38; Start 06/09/17 at 09:00 Amlodipine Besylate (Norvasc) 5 mg DAILY PO Last administered on 06/28/17 09:19 ; Start 06/08/17 at 09:00 Vitamin D (Vitamin D3) 50,000 unit WEEKLY PO Last administered on 06/28/17 09: 00; Start 06/07/17 at 19:00 Olanzapine (ZyPREXA ZYDIS) 2.5 mg PRN Q2HR PRN PO PSYCHOSIS; Start 06/08/17 at 09:00 Quetiapine Fumarate (SEROquel) 12.5 mg TID@0900,1700,2100 PO Last administered on 06/28/17 19:43; Start 06/08/17 at 21:00 Mirtazapine (Remeron) 7.5 mg QHS PO Last administered on 06/28/17 19:43; Start 06/09/17 at 21:00 Trazodone HCl (Desyrel) 25 mg PRN QHS PRN PO INSOMNIA, MAY REPEAT X1 Last administered on 06/20/17 21:01; Start 06/09/17 at 18:15 Sertraline HCl (Zoloft) 25 mg DAILY PO Last administered on 06/13/17 08:41; Start 06/12/17 at 09:00; Stop 06/13/17 at 21:04; Status DC Sertraline HCl (Zoloft) 50 mg DAILY PO Last administered on 06/17/17 09:16; Start 06/14/17 at 09:00; Stop 06/17/17 at 15:44; Status DC Sertraline HCl (Zoloft) 75 mg DAILY PO Last administered on 06/28/17 09:19; Start 06/18/17 at 09:00 Magnesium Hydroxide (Milk Of Magnesia) 2,400 mg PRN DAILY PRN PO CONSTIPATION Last administered on 06/22/17 17:28; Start 06/22/17 at 10:15 Active Scripts Active Reported [place] 3 1,000 Mg Softgel ([place]-3 Fatty Acids/Fish Oil) 1 Each Capsule 1 Each PO QODAY [place] 3 1,000 Mg Softgel ([place]-3 Fatty Acids/Fish Oil) 1 Each Capsule 1,000 Mg PO QPM Atorvastatin Calcium 40 Mg Tablet 40 Mg PO QHS Norvasc (Amlodipine Besylate) 2.5 Mg Tablet 2.5 Mg PO DAILY Metoprolol Tartrate 25 Mg Tablet 12.5 Mg PO BID I have reviewed the current psychotropics carefully including drug interactions. Risk benefit ratio favors no change other than as noted in my dictated progress note. Diagnosis: Problems: (1) Dementia (2) Paranoia (psychosis) (3) Neurocognitive disorder (4) Cerebrovascular accident (CVA) involving anterior circulation of right side JESSICA SANTIAGO MD Jun 28, 2017 20:00
--- NOTE | 2017-06-29 02:55 | PN ---
DATE: 06/27/2017 This is a late entry for 06/27/2017, covers elements not covered in my initial note of 06/27/2017. SUBJECTIVE: I met with the patient the evening of 06/27/2017. The patient slept 9-1/4 hours previous evening, confused, smiling at times, gets a little suspicious of staff at times, but redirects compliant with her medications. REVIEW OF SYSTEMS: No CV, , pulmonary, eye, ENT system symptoms on review. Reliability poor. MENTAL STATUS EXAMINATION: Oriented to herself. Insight, judgment, recent and remote memory, attention, concentration, fund of knowledge poor, consistent with her diagnosis mentioned in my initial note. IMPRESSION: Major neurocognitive disorder, Alzheimer, vascular with delusion, depression. PLAN: Continue psychotropics mentioned in my initial note. MAN April SANTIAGO MD DR: YANIV/damián JOB#: [id number] / [id number]
[2017-06-29 06:07] VITALS: BP 138/40
[2017-06-29 07:58] VITALS: BP 125/63
[2017-06-29] MEDS: SERTRALINE 50 MG TABLET. PO SCH (08:36)
[2017-06-29] MEDS: amLODIPine BESYLATE 5 MG TABLET PO SCH (08:36)
[2017-06-29] MEDS: METOPROLOL TART IMMED RELEASE 25 MG TABLET PO SCH ×2 (08:37→21:07)
[2017-06-29] MEDS: QUEtiapine 25 MG TABLET. PO SCH ×3 (08:37→21:06)
[2017-06-29] MEDS: OMEGA-3 FATTY ACIDS/FISH OIL 1,000 MG CAPSULE. PO SCH ×2 (08:38→17:04)
[2017-06-29 15:56] VITALS: BP 143/65
--- NOTE | 2017-06-29 19:56 | PDOC ---
Exam Note: Santhosh Note: Please also refer to the separate dictated note~for this date of service dictated separately.~Patient seen individually. Discussed the patient with Nursing staff reviewed the chart.~Reviewed interim history and current functioning. Reviewed vital signs,~Labs/ Radiology~and current medications noted below. Continue current treatment with the changes noted in the dictated addendum note Assessment: Vital Signs: Vital Signs Date Time Temp Pulse Resp B/P (MAP) Pulse Ox O2 Delivery O2 Flow Rate FiO2 06/29/17 15:56 98.4 65 18 143/65 (91) 95 06/26/17 16:42 Room Air I&O Intake and Output 06/29/17 07:00 Intake Total 1200 ml Balance 1200 ml Intake Oral 1200 ml Current Medications: Meds: Current Medications Amlodipine Besylate (Norvasc) 2.5 mg DAILY PO Last administered on 06/07/17 08 :34; Start 06/07/17 at 09:00; Stop 06/07/17 at 18:17; Status DC Metoprolol Tartrate (Lopressor) 12.5 mg BID PO Last administered on 06/29/17 08 :37; Start 06/07/17 at 09:00 Atorvastatin Calcium (Lipitor) 40 mg QHS PO Last administered on 06/28/17 19:44 ; Start 06/07/17 at 21:00 Fish Oil (Fish Oil) 1,000 mg QPM PO Last administered on 06/29/17 17:04; Start 06/07/17 at 18:00 Fish Oil (Fish Oil) 1,000 mg QODAY PO Last administered on 06/29/17 08:38; Start 06/09/17 at 09:00 Amlodipine Besylate (Norvasc) 5 mg DAILY PO Last administered on 06/29/17 08:36 ; Start 06/08/17 at 09:00 Vitamin D (Vitamin D3) 50,000 unit WEEKLY PO Last administered on 06/28/17 09: 00; Start 06/07/17 at 19:00 Olanzapine (ZyPREXA ZYDIS) 2.5 mg PRN Q2HR PRN PO PSYCHOSIS; Start 06/08/17 at 09:00 Quetiapine Fumarate (SEROquel) 12.5 mg TID@0900,1700,2100 PO Last administered on 3/6/18at 17:04; Start 06/08/17 at 21:00 Mirtazapine (Remeron) 7.5 mg QHS PO Last administered on 06/28/17at 19:43; Start 06/09/17 at 21:00 Trazodone HCl (Desyrel) 25 mg PRN QHS PRN PO INSOMNIA, MAY REPEAT X1 Last administered on 06/20/17at 21:01; Start 06/09/17 at 18:15 Sertraline HCl (Zoloft) 25 mg DAILY PO Last administered on 06/13/17at 08:41; Start 06/12/17 at 09:00; Stop 06/13/17 at 21:04; Status DC Sertraline HCl (Zoloft) 50 mg DAILY PO Last administered on 06/17/17at 09:16; Start 06/14/17 at 09:00; Stop 06/17/17 at 15:44; Status DC Sertraline HCl (Zoloft) 75 mg DAILY PO Last administered on 06/29/17at 08:36; Start 06/18/17 at 09:00 Magnesium Hydroxide (Milk Of Magnesia) 2,400 mg PRN DAILY PRN PO CONSTIPATION Last administered on 06/22/17at 17:28; Start 06/22/17 at 10:15 Active Scripts Active Reported [place] 3 1,000 Mg Softgel ([place]-3 Fatty Acids/Fish Oil) 1 Each Capsule 1 Each PO QODAY [place] 3 1,000 Mg Softgel ([place]-3 Fatty Acids/Fish Oil) 1 Each Capsule 1,000 Mg PO QPM Atorvastatin Calcium 40 Mg Tablet 40 Mg PO QHS Norvasc (Amlodipine Besylate) 2.5 Mg Tablet 2.5 Mg PO DAILY Metoprolol Tartrate 25 Mg Tablet 12.5 Mg PO BID I have reviewed the current psychotropics carefully including drug interactions. Risk benefit ratio favors no change other than as noted in my dictated progress note. Diagnosis: Problems: (1) Dementia (2) Paranoia (psychosis) (3) Neurocognitive disorder (4) Cerebrovascular accident (CVA) involving anterior circulation of right side JESSICA SANTIAGO MD Jun 29, 2017 19:56
[2017-06-29] MEDS: ATORVASTATIN CALCIUM 20 MG TABLET PO SCH (21:06)
[2017-06-29] MEDS: MIRTAZAPINE 7.5 MG TABLET. PO SCH (21:06)
--- NOTE | 2017-06-29 21:21 | PN ---
DATE: 06/28/2017 This late entry, 06/28/2017, covers elements not covered in my initial note of 06/28/2017. SUBJECTIVE: I met with the patient the evening of 06/28/2017. The patient remains confused, but otherwise pleasant. Per nursing report, she tells her family certain things that are not accurate on the unit, certainly could be explained partly by her memory deficits. REVIEW OF SYSTEMS: No CV, , pulmonary, eye, ENT system symptoms on review. Reliability poor. MENTAL STATUS EXAM: Oriented to herself. Insight, judgment, recent and remote memory, attention, concentration, fund of knowledge poor, consistent with her diagnosis mentioned in my initial note. PLAN: Continue psychotropics mentioned in my initial note. MAN April SANTIAGO MD DR: YANIV/damián JOB#: [id number] / [id number]
[2017-06-30 06:23] VITALS: BP 162/76
[2017-06-30] MEDS: METOPROLOL TART IMMED RELEASE 25 MG TABLET PO SCH ×2 (08:05→19:36)
[2017-06-30] MEDS: QUEtiapine 25 MG TABLET. PO SCH ×3 (08:06→19:36)
[2017-06-30] MEDS: amLODIPine BESYLATE 5 MG TABLET PO SCH (08:07)
[2017-06-30] MEDS: SERTRALINE 50 MG TABLET. PO SCH (08:07)
[2017-06-30 09:43] LABS: BASO % 1 % (0-3); EOS # 0.2 x10^3/uL (0.0-0.7); EOS % 3 % (0-3); HEMATOCRIT 35.3 % (36.0-47.0); HEMOGLOBIN 12.2 g/dL (12.0-15.5); LYMPH # 1.1 x10^3/uL (1.0-4.8); LYMPH % 23 % (24-48); MEAN CORPUSCULAR HEMOGLOBIN 34 pg (25-35); MEAN CORPUSCULAR HGB CONC 35 g/dL (31-37); MEAN CORPUSCULAR VOLUME 100 fL (79-100); MONO # 0.4 x10^3/uL (0.0-1.1); MONO % 8 % (0-9); NEUT # 3.2 x10^3uL (1.8-7.7); NEUT % 66 % (31-73); PLATELET COUNT 127 x10^3/uL (140-400); RED BLOOD COUNT 3.54 x10^6/uL (3.50-5.40); RED CELL DISTRIBUTION WIDTH 14.2 % (11.5-14.5); WHITE BLOOD COUNT 4.9 x10^3/uL (4.0-11.0)
[2017-06-30 10:00] LABS: ALBUMIN 3.1 g/dL (3.4-5.0); ALBUMIN/GLOBULIN RATIO 1.1 (1.0-1.7); CALCIUM 8.7 mg/dL (8.5-10.1); GFR 52.8; POTASSIUM 3.9 mmol/L (3.5-5.1); TOTAL BILIRUBIN 0.4 mg/dL (0.2-1.0); TOTAL PROTEIN 5.9 g/dL (6.4-8.2)
[2017-06-30 16:23] VITALS: BP 106/57
[2017-06-30] MEDS: OMEGA-3 FATTY ACIDS/FISH OIL 1,000 MG CAPSULE. PO SCH (17:12)
--- NOTE | 2017-06-30 19:24 | PN ---
DATE: 06/29/2017 PSYCHIATRIC PROGRESS NOTE This is a late entry 06/29/2017 covers elements not covered in my initial note 06/29/2017. SUBJECTIVE: I met with the patient evening of 06/29/2017. Overall, the patient remains withdrawn, but is fairly appropriate, pleasant, smiling as I met with her. Appears much less paranoid. REVIEW OF SYSTEMS: No CV, , pulmonary, eye, ENT system symptoms on review. Reliability poor. MENTAL STATUS EXAM: Oriented to herself. Insight, judgment, recent and remote memory, attention, concentration, fund of knowledge poor, consistent with her diagnosis mentioned in my initial note. IMPRESSION: Major neurocognitive disorder, Alzheimer, vascular with depression, delusion, behavioral disturbance. Rest unchanged. PLAN: Continue psychotropics mentioned in my initial note. MAN April SANTIAGO MD DR: YANIV/damián JOB#: [id number] / [id number]
[2017-06-30] MEDS: ATORVASTATIN CALCIUM 20 MG TABLET PO SCH (19:36)
[2017-06-30] MEDS: MIRTAZAPINE 7.5 MG TABLET. PO SCH (19:36)
--- NOTE | 2017-06-30 19:58 | PDOC ---
Exam Note: Santhosh Note: Please also refer to the separate dictated note~for this date of service dictated separately.~Patient seen individually. Discussed the patient with Nursing staff reviewed the chart.~Reviewed interim history and current functioning. Reviewed vital signs,~Labs/ Radiology~and current medications noted below. Continue current treatment with the changes noted in the dictated addendum note Assessment: Vital Signs: Vital Signs Date Time Temp Pulse Resp B/P (MAP) Pulse Ox O2 Delivery O2 Flow Rate FiO2 06/30/17 19:36 71 106/57 06/30/17 16:23 98.5 18 97 06/26/17 16:42 Room Air I&O Intake and Output 06/30/17 07:00 Intake Total 1200 ml Balance 1200 ml Intake Oral 1200 ml # Voids 1 Labs: Laboratory Tests Test 06/30/17 09:17 White Blood Count 4.9 x10^3/uL (4.0-11.0) Red Blood Count 3.54 x10^6/uL (3.50-5.40) Hemoglobin 12.2 g/dL (12.0-15.5) Hematocrit 35.3 % (36.0-47.0) L Mean Corpuscular Volume 100 fL (79-100) Mean Corpuscular Hemoglobin 34 pg (25-35) Mean Corpuscular Hemoglobin Concent 35 g/dL (31-37) Red Cell Distribution Width 14.2 % (11.5-14.5) Platelet Count 127 x10^3/uL (140-400) L Neutrophils (%) (Auto) 66 % (31-73) Lymphocytes (%) (Auto) 23 % (24-48) L Monocytes (%) (Auto) 8 % (0-9) Eosinophils (%) (Auto) 3 % (0-3) Basophils (%) (Auto) 1 % (0-3) Neutrophils # (Auto) 3.2 x10^3uL (1.8-7.7) Lymphocytes # (Auto) 1.1 x10^3/uL (1.0-4.8) Monocytes # (Auto) 0.4 x10^3/uL (0.0-1.1) Eosinophils # (Auto) 0.2 x10^3/uL (0.0-0.7) Basophils # (Auto) 0.0 x10^3/uL (0.0-0.2) Sodium Level 142 mmol/L (136-145) Potassium Level 3.9 mmol/L (3.5-5.1) Chloride Level 106 mmol/L (98-107) Carbon Dioxide Level 28 mmol/L (21-32) Anion Gap 8 (6-14) Blood Urea Nitrogen 27 mg/dL (7-20) H Creatinine 1.0 mg/dL (0.6-1.0) Estimated GFR (Cockcroft-Gault) 52.8 BUN/Creatinine Ratio 27 (6-20) H Glucose Level 141 mg/dL (70-99) H Calcium Level 8.7 mg/dL (8.5-10.1) Magnesium Level 2.0 mg/dL (1.8-2.4) Total Bilirubin 0.4 mg/dL (0.2-1.0) Aspartate Amino Transferase (AST) 18 U/L (15-37) Alanine Aminotransferase (ALT) 31 U/L (14-59) Alkaline Phosphatase 68 U/L (46-116) Total Protein 5.9 g/dL (6.4-8.2) L Albumin 3.1 g/dL (3.4-5.0) L Albumin/Globulin Ratio 1.1 (1.0-1.7) Current Medications: Meds: Current Medications Amlodipine Besylate (Norvasc) 2.5 mg DAILY PO Last administered on 06/07/17 08 :34; Start 06/07/17 at 09:00; Stop 06/07/17 at 18:17; Status DC Metoprolol Tartrate (Lopressor) 12.5 mg BID PO Last administered on 06/30/17 19 :36; Start 06/07/17 at 09:00 Atorvastatin Calcium (Lipitor) 40 mg QHS PO Last administered on 06/30/17 19:36 ; Start 06/07/17 at 21:00 Fish Oil (Fish Oil) 1,000 mg QPM PO Last administered on 06/30/17 17:12; Start 06/07/17 at 18:00 Fish Oil (Fish Oil) 1,000 mg QODAY PO Last administered on 06/29/17 08:38; Start 06/09/17 at 09:00 Amlodipine Besylate (Norvasc) 5 mg DAILY PO Last administered on 06/30/17 08:07 ; Start 06/08/17 at 09:00 Vitamin D (Vitamin D3) 50,000 unit WEEKLY PO Last administered on 06/28/17 09: 00; Start 06/07/17 at 19:00 Olanzapine (ZyPREXA ZYDIS) 2.5 mg PRN Q2HR PRN PO PSYCHOSIS; Start 06/08/17 at 09:00 Quetiapine Fumarate (SEROquel) 12.5 mg TID@0900,1700,2100 PO Last administered on 06/30/17 19:36; Start 06/08/17 at 21:00 Mirtazapine (Remeron) 7.5 mg QHS PO Last administered on 06/30/17 19:36; Start 06/09/17 at 21:00 Trazodone HCl (Desyrel) 25 mg PRN QHS PRN PO INSOMNIA, MAY REPEAT X1 Last administered on 06/20/17 21:01; Start 06/09/17 at 18:15 Sertraline HCl (Zoloft) 25 mg DAILY PO Last administered on 06/13/17at 08:41; Start 06/12/17 at 09:00; Stop 06/13/17 at 21:04; Status DC Sertraline HCl (Zoloft) 50 mg DAILY PO Last administered on 06/17/17 09:16; Start 06/14/17 at 09:00; Stop 06/17/17 at 15:44; Status DC Sertraline HCl (Zoloft) 75 mg DAILY PO Last administered on 06/30/17 08:07; Start 06/18/17 at 09:00 Magnesium Hydroxide (Milk Of Magnesia) 2,400 mg PRN DAILY PRN PO CONSTIPATION Last administered on 06/22/17 17:28; Start 06/22/17 at 10:15 Active Scripts Active Reported [place] 3 1,000 Mg Softgel ([place]-3 Fatty Acids/Fish Oil) 1 Each Capsule 1 Each PO QODAY [place] 3 1,000 Mg Softgel ([place]-3 Fatty Acids/Fish Oil) 1 Each Capsule 1,000 Mg PO QPM Atorvastatin Calcium 40 Mg Tablet 40 Mg PO QHS Norvasc (Amlodipine Besylate) 2.5 Mg Tablet 2.5 Mg PO DAILY Metoprolol Tartrate 25 Mg Tablet 12.5 Mg PO BID I have reviewed the current psychotropics carefully including drug interactions. Risk benefit ratio favors no change other than as noted in my dictated progress note. Diagnosis: Problems: (1) Dementia (2) Paranoia (psychosis) (3) Neurocognitive disorder (4) Cerebrovascular accident (CVA) involving anterior circulation of right side JESSICA SANTIAGO MD Jun 30, 2017 19:58
[2017-07-01 06:14] VITALS: BP 128/53
[2017-07-01] MEDS: QUEtiapine 25 MG TABLET. PO SCH (08:46)
[2017-07-01] MEDS: amLODIPine BESYLATE 5 MG TABLET PO SCH (08:47)
[2017-07-01] MEDS: SERTRALINE 50 MG TABLET. PO SCH (08:47)
[2017-07-01] MEDS: METOPROLOL TART IMMED RELEASE 25 MG TABLET PO SCH ×2 (08:48→19:48)
[2017-07-01] MEDS: OMEGA-3 FATTY ACIDS/FISH OIL 1,000 MG CAPSULE. PO SCH ×2 (08:49→17:31)
[2017-07-01] MEDS ORDERED: MAGNESIUM HYDROXIDE 2,400 MG/30 ML ORAL.SUSP. PO ONE (10:15)
[2017-07-01] MEDS: DOCUSATE SODIUM 100 MG CAPSULE PO SCH (10:39)
[2017-07-01 16:20] VITALS: BP 154/61
[2017-07-01] MEDS: ATORVASTATIN CALCIUM 20 MG TABLET PO SCH (19:47)
[2017-07-01] MEDS: MIRTAZAPINE 7.5 MG TABLET. PO SCH (19:47)
--- NOTE | 2017-07-01 20:02 | PDOC ---
Exam Note: Santhosh Note: Please also refer to the separate dictated note~for this date of service dictated separately.~Patient seen individually. Discussed the patient with Nursing staff reviewed the chart.~Reviewed interim history and current functioning. Reviewed vital signs,~Labs/ Radiology~and current medications noted below. Continue current treatment with the changes noted in the dictated addendum note Assessment: Vital Signs: Vital Signs Date Time Temp Pulse Resp B/P (MAP) Pulse Ox O2 Delivery O2 Flow Rate FiO2 07/01/17 19:48 61 154/61 07/01/17 16:20 97.8 18 98 06/26/17 16:42 Room Air I&O Intake and Output 07/01/17 07:00 Intake Total 960 ml Balance 960 ml Intake Oral 960 ml # Voids 1 # Bowel Movements 1 Current Medications: Meds: Current Medications Amlodipine Besylate (Norvasc) 2.5 mg DAILY PO Last administered on 06/07/17 08 :34; Start 06/07/17 at 09:00; Stop 06/07/17 at 18:17; Status DC Metoprolol Tartrate (Lopressor) 12.5 mg BID PO Last administered on 07/01/17 19 :48; Start 06/07/17 at 09:00 Atorvastatin Calcium (Lipitor) 40 mg QHS PO Last administered on 07/01/17 19:47 ; Start 06/07/17 at 21:00 Fish Oil (Fish Oil) 1,000 mg QPM PO Last administered on 07/01/17 17:31; Start 06/07/17 at 18:00 Fish Oil (Fish Oil) 1,000 mg QODAY PO Last administered on 07/01/17 08:49; Start 06/09/17 at 09:00 Amlodipine Besylate (Norvasc) 5 mg DAILY PO Last administered on 07/01/17 08:47 ; Start 06/08/17 at 09:00 Vitamin D (Vitamin D3) 50,000 unit WEEKLY PO Last administered on 06/28/17 09: 00; Start 06/07/17 at 19:00 Olanzapine (ZyPREXA ZYDIS) 2.5 mg PRN Q2HR PRN PO PSYCHOSIS; Start 06/08/17 at 09:00 Quetiapine Fumarate (SEROquel) 12.5 mg TID@0900,1700,2100 PO Last administered on 07/01/17 08:46; Start 06/08/17 at 21:00; Stop 07/01/17 at 12:24; Status DC Mirtazapine (Remeron) 7.5 mg QHS PO Last administered on 07/01/17 19:47; Start 06/09/17 at 21:00 Trazodone HCl (Desyrel) 25 mg PRN QHS PRN PO INSOMNIA, MAY REPEAT X1 Last administered on 06/20/17at 21:01; Start 06/09/17 at 18:15 Sertraline HCl (Zoloft) 25 mg DAILY PO Last administered on 06/13/17 08:41; Start 06/12/17 at 09:00; Stop 06/13/17 at 21:04; Status DC Sertraline HCl (Zoloft) 50 mg DAILY PO Last administered on 06/17/17 09:16; Start 06/14/17 at 09:00; Stop 06/17/17 at 15:44; Status DC Sertraline HCl (Zoloft) 75 mg DAILY PO Last administered on 07/01/17 08:47; Start 06/18/17 at 09:00 Magnesium Hydroxide (Milk Of Magnesia) 2,400 mg PRN DAILY PRN PO CONSTIPATION Last administered on 06/22/17 17:28; Start 06/22/17 at 10:15 Magnesium Hydroxide (Milk Of Magnesia) 2,400 mg 1X ONCE PO ; Start 07/01/17 at 10:15; Stop 07/01/17 at 10:22; Status DC Docusate Sodium (Colace) 100 mg DAILY PO Last administered on 07/01/17at 10:39; Start 07/01/17 at 10:30 Active Scripts Active Reported [place] 3 1,000 Mg Softgel ([place]-3 Fatty Acids/Fish Oil) 1 Each Capsule 1 Each PO QODAY [place] 3 1,000 Mg Softgel ([place]-3 Fatty Acids/Fish Oil) 1 Each Capsule 1,000 Mg PO QPM Atorvastatin Calcium 40 Mg Tablet 40 Mg PO QHS Norvasc (Amlodipine Besylate) 2.5 Mg Tablet 2.5 Mg PO DAILY Metoprolol Tartrate 25 Mg Tablet 12.5 Mg PO BID I have reviewed the current psychotropics carefully including drug interactions. Risk benefit ratio favors no change other than as noted in my dictated progress note. Diagnosis: Problems: (1) Dementia (2) Paranoia (psychosis) (3) Neurocognitive disorder (4) Cerebrovascular accident (CVA) involving anterior circulation of right side JESSICA SANTIAGO MD Jul 01, 2017 20:02
[2017-07-01] MEDS: traZODone 50 MG TABLET. PO PRN (22:12)
[2017-07-02 06:15] VITALS: BP 159/48
[2017-07-02] MEDS: SERTRALINE 50 MG TABLET. PO SCH (08:14)
[2017-07-02] MEDS: DOCUSATE SODIUM 100 MG CAPSULE PO SCH (08:14)
[2017-07-02] MEDS: METOPROLOL TART IMMED RELEASE 25 MG TABLET PO SCH ×2 (08:15→19:39)
[2017-07-02] MEDS: amLODIPine BESYLATE 5 MG TABLET PO SCH (08:15)
[2017-07-02 16:29] VITALS: BP 175/67
[2017-07-02] MEDS: OMEGA-3 FATTY ACIDS/FISH OIL 1,000 MG CAPSULE. PO SCH (17:43)
[2017-07-02] MEDS: MIRTAZAPINE 7.5 MG TABLET. PO SCH (19:38)
[2017-07-02] MEDS: ATORVASTATIN CALCIUM 20 MG TABLET PO SCH (19:40)
[2017-07-02] MEDS: QUEtiapine 25 MG TABLET. PO SCH (19:41)
--- NOTE | 2017-07-02 19:59 | PDOC ---
Exam Note: Santhosh Note: Please also refer to the separate dictated note~for this date of service dictated separately.~Patient seen individually. Discussed the patient with Nursing staff reviewed the chart.~Reviewed interim history and current functioning. Reviewed vital signs,~Labs/ Radiology~and current medications noted below. Continue current treatment with the changes noted in the dictated addendum note Assessment: Vital Signs: Vital Signs Date Time Temp Pulse Resp B/P (MAP) Pulse Ox O2 Delivery O2 Flow Rate FiO2 07/02/17 19:39 88 175/67 07/02/17 16:29 97.7 20 99 06/26/17 16:42 Room Air I&O Intake and Output 07/02/17 07:00 Intake Total 1320 ml Balance 1320 ml Intake Oral 1320 ml # Voids 1 Current Medications: Meds: Current Medications Amlodipine Besylate (Norvasc) 2.5 mg DAILY PO Last administered on 06/07/17 08 :34; Start 06/07/17 at 09:00; Stop 06/07/17 at 18:17; Status DC Metoprolol Tartrate (Lopressor) 12.5 mg BID PO Last administered on 07/02/17 19 :39; Start 06/07/17 at 09:00 Atorvastatin Calcium (Lipitor) 40 mg QHS PO Last administered on 07/02/17 19:40 ; Start 06/07/17 at 21:00 Fish Oil (Fish Oil) 1,000 mg QPM PO Last administered on 07/02/17 17:43; Start 06/07/17 at 18:00 Fish Oil (Fish Oil) 1,000 mg QODAY PO Last administered on 07/01/17 08:49; Start 06/09/17 at 09:00 Amlodipine Besylate (Norvasc) 5 mg DAILY PO Last administered on 07/02/17 08:15 ; Start 06/08/17 at 09:00 Vitamin D (Vitamin D3) 50,000 unit WEEKLY PO Last administered on 06/28/17 09: 00; Start 06/07/17 at 19:00 Olanzapine (ZyPREXA ZYDIS) 2.5 mg PRN Q2HR PRN PO PSYCHOSIS Last administered on 07/02/17 05:55; Start 06/08/17 at 09:00 Quetiapine Fumarate (SEROquel) 12.5 mg TID@0900,1700,2100 PO Last administered on 07/01/17 08:46; Start 06/08/17 at 21:00; Stop 07/01/17 at 12:24; Status DC Mirtazapine (Remeron) 7.5 mg QHS PO Last administered on 07/02/17 19:38; Start 06/09/17 at 21:00 Trazodone HCl (Desyrel) 25 mg PRN QHS PRN PO INSOMNIA, MAY REPEAT X1 Last administered on 06/20/17 21:01; Start 06/09/17 at 18:15 Sertraline HCl (Zoloft) 25 mg DAILY PO Last administered on 06/13/17 08:41; Start 06/12/17 at 09:00; Stop 06/13/17 at 21:04; Status DC Sertraline HCl (Zoloft) 50 mg DAILY PO Last administered on 06/17/17 09:16; Start 06/14/17 at 09:00; Stop 06/17/17 at 15:44; Status DC Sertraline HCl (Zoloft) 75 mg DAILY PO Last administered on 07/02/17 08:14; Start 06/18/17 at 09:00 Magnesium Hydroxide (Milk Of Magnesia) 2,400 mg PRN DAILY PRN PO CONSTIPATION Last administered on 06/22/17 17:28; Start 06/22/17 at 10:15 Magnesium Hydroxide (Milk Of Magnesia) 2,400 mg 1X ONCE PO ; Start 07/01/17 at 10:15; Stop 07/01/17 at 10:22; Status DC Docusate Sodium (Colace) 100 mg DAILY PO Last administered on 07/02/17 08:14; Start 07/01/17 at 10:30 Quetiapine Fumarate (SEROquel) 12.5 mg BID PO Last administered on 07/02/17 19: 41; Start 07/02/17 at 21:00; Stop 07/05/17 at 08:59 Quetiapine Fumarate (SEROquel) 12.5 mg DAILY PO ; Start 07/05/17 at 09:00; Stop 07/07/17 at 08:59 Active Scripts Active Reported [place] 3 1,000 Mg Softgel ([place]-3 Fatty Acids/Fish Oil) 1 Each Capsule 1 Each PO QODAY [place] 3 1,000 Mg Softgel ([place]-3 Fatty Acids/Fish Oil) 1 Each Capsule 1,000 Mg PO QPM Atorvastatin Calcium 40 Mg Tablet 40 Mg PO QHS Norvasc (Amlodipine Besylate) 2.5 Mg Tablet 2.5 Mg PO DAILY Metoprolol Tartrate 25 Mg Tablet 12.5 Mg PO BID I have reviewed the current psychotropics carefully including drug interactions. Risk benefit ratio favors no change other than as noted in my dictated progress note. Diagnosis: Problems: (1) Dementia (2) Paranoia (psychosis) (3) Neurocognitive disorder (4) Cerebrovascular accident (CVA) involving anterior circulation of right side JESSICA SANTIAGO MD Jul 02, 2017 19:59
--- NOTE | 2017-07-02 20:50 | PN ---
DATE: 06/30/2017 PSYCHIATRIC PROGRESS NOTE This is a late entry 06/30/2017 covers elements not covered in my initial note 06/30/2017. SUBJECTIVE: I met with the patient evening of 06/30/2017. The patient slept 7-1/2 hours previous evening, had a good night, the previous evening confused, withdrawn, spends much time in the room, compliant with medications. REVIEW OF SYSTEMS: No CV, , pulmonary, eye, ENT system symptoms on review. Reliability poor. MENTAL STATUS EXAM: Oriented to herself. Insight, judgment, recent and remote memory, attention, concentration, fund of knowledge poor, consistent with her diagnosis mentioned in my initial note. IMPRESSION: Major neurocognitive disorder, Alzheimer, vascular with depression, delusion, behavioral disturbance. Rest unchanged. PLAN: Continue current psychotropics including Seroquel. We will consider tapering Seroquel, but given the circumstances prompting admission, I feel risk and benefit ratio favors continuing for now. JESSICA SANTIAGO MD DR: YANIV/damián JOB#: [id number] / [id number]
--- NOTE | 2017-07-02 23:27 | PN ---
DATE: 07/01/2017 PSYCHIATRIC PROGRESS NOTE This is a late entry for 07/01/2017, covers elements not covered in my initial note of 07/01/2017. SUBJECTIVE: I met with the patient the evening of 07/01/2017. Staffed at the treatment team meeting with the entire team the morning of 07/01/2017. The patient's daughter, Deborah attended the conference. She wants the Seroquel discontinued, we will stop it. Per report from staff, the patient remains confused, withdrawn, at times calmer. REVIEW OF SYSTEMS: No CV, , pulmonary, eye, ENT system symptoms on review. Reliability poor. MENTAL STATUS EXAM: Oriented to herself. Insight, judgment, recent and remote memory, attention, concentration, fund of knowledge poor, consistent with her diagnosis mentioned in my initial note. PLAN: Stop Seroquel. Continue rest of the psychotropics. MAN April SANTIAGO MD DR: YANIV/damián JOB#: [id number] / [id number]
[2017-07-03 07:10] VITALS: BP 136/60
[2017-07-03] MEDS: DOCUSATE SODIUM 100 MG CAPSULE PO SCH (08:42)
[2017-07-03] MEDS: SERTRALINE 50 MG TABLET. PO SCH (08:43)
[2017-07-03] MEDS: amLODIPine BESYLATE 5 MG TABLET PO SCH (08:44)
[2017-07-03] MEDS: QUEtiapine 25 MG TABLET. PO SCH ×2 (08:44→19:31)
[2017-07-03] MEDS: METOPROLOL TART IMMED RELEASE 25 MG TABLET PO SCH ×2 (08:45→19:32)
[2017-07-03] MEDS: OMEGA-3 FATTY ACIDS/FISH OIL 1,000 MG CAPSULE. PO SCH ×2 (08:47→17:53)
[2017-07-03 16:26] VITALS: BP 157/58
[2017-07-03] MEDS: ATORVASTATIN CALCIUM 20 MG TABLET PO SCH (19:31)
[2017-07-03] MEDS: MIRTAZAPINE 7.5 MG TABLET. PO SCH (19:31)
--- NOTE | 2017-07-03 21:14 | PDOC ---
Exam Note: Santhosh Note: Please also refer to the separate dictated note~for this date of service dictated separately.~Patient seen individually. Discussed the patient with Nursing staff reviewed the chart.~Reviewed interim history and current functioning. Reviewed vital signs,~Labs/ Radiology~and current medications noted below. Continue current treatment with the changes noted in the dictated addendum note Assessment: Vital Signs: Vital Signs Date Time Temp Pulse Resp B/P (MAP) Pulse Ox O2 Delivery O2 Flow Rate FiO2 07/03/17 19:32 66 157/58 07/03/17 16:26 97.1 16 99 Room Air I&O Intake and Output 07/03/17 07:00 Intake Total 980 ml Balance 980 ml Intake Oral 980 ml # Voids 1 Current Medications: Meds: Current Medications Amlodipine Besylate (Norvasc) 2.5 mg DAILY PO Last administered on 06/07/17 08 :34; Start 06/07/17 at 09:00; Stop 06/07/17 at 18:17; Status DC Metoprolol Tartrate (Lopressor) 12.5 mg BID PO Last administered on 07/03/17 19:32; Start 06/07/17 at 09:00 Atorvastatin Calcium (Lipitor) 40 mg QHS PO Last administered on 07/03/17 19: 31; Start 06/07/17 at 21:00 Fish Oil (Fish Oil) 1,000 mg QPM PO Last administered on 07/03/17 17:53; Start 06/07/17 at 18:00 Fish Oil (Fish Oil) 1,000 mg QODAY PO Last administered on 07/03/17 08:47; Start 06/09/17 at 09:00 Amlodipine Besylate (Norvasc) 5 mg DAILY PO Last administered on 07/03/17 08: 44; Start 06/08/17 at 09:00 Vitamin D (Vitamin D3) 50,000 unit WEEKLY PO Last administered on 06/28/17 09: 00; Start 06/07/17 at 19:00 Olanzapine (ZyPREXA ZYDIS) 2.5 mg PRN Q2HR PRN PO PSYCHOSIS Last administered on 07/02/17 05:55; Start 06/08/17 at 09:00 Quetiapine Fumarate (SEROquel) 12.5 mg TID@0900,1700,2100 PO Last administered on 07/01/17 08:46; Start 06/08/17 at 21:00; Stop 07/01/17 at 12:24; Status DC Mirtazapine (Remeron) 7.5 mg QHS PO Last administered on 07/03/17 19:31; Start 06/09/17 at 21:00 Trazodone HCl (Desyrel) 25 mg PRN QHS PRN PO INSOMNIA, MAY REPEAT X1 Last administered on 06/20/17at 21:01; Start 06/09/17 at 18:15 Sertraline HCl (Zoloft) 25 mg DAILY PO Last administered on 06/13/17at 08:41; Start 06/12/17 at 09:00; Stop 06/13/17 at 21:04; Status DC Sertraline HCl (Zoloft) 50 mg DAILY PO Last administered on 06/17/17 09:16; Start 06/14/17 at 09:00; Stop 06/17/17 at 15:44; Status DC Sertraline HCl (Zoloft) 75 mg DAILY PO Last administered on 07/03/17 08:43; Start 06/18/17 at 09:00 Magnesium Hydroxide (Milk Of Magnesia) 2,400 mg PRN DAILY PRN PO CONSTIPATION Last administered on 06/22/17 17:28; Start 06/22/17 at 10:15 Magnesium Hydroxide (Milk Of Magnesia) 2,400 mg 1X ONCE PO ; Start 07/01/17 at 10:15; Stop 07/01/17 at 10:22; Status DC Docusate Sodium (Colace) 100 mg DAILY PO Last administered on 07/03/17at 08:42; Start 07/01/17 at 10:30 Quetiapine Fumarate (SEROquel) 12.5 mg BID PO Last administered on 07/03/17 19 :31; Start 07/02/17 at 21:00; Stop 07/05/17 at 08:59 Quetiapine Fumarate (SEROquel) 12.5 mg DAILY PO ; Start 07/05/17 at 09:00; Stop 07/07/17 at 08:59 Active Scripts Active Reported [place] 3 1,000 Mg Softgel ([place]-3 Fatty Acids/Fish Oil) 1 Each Capsule 1 Each PO QODAY [place] 3 1,000 Mg Softgel ([place]-3 Fatty Acids/Fish Oil) 1 Each Capsule 1,000 Mg PO QPM Atorvastatin Calcium 40 Mg Tablet 40 Mg PO QHS Norvasc (Amlodipine Besylate) 2.5 Mg Tablet 2.5 Mg PO DAILY Metoprolol Tartrate 25 Mg Tablet 12.5 Mg PO BID I have reviewed the current psychotropics carefully including drug interactions. Risk benefit ratio favors no change other than as noted in my dictated progress note. Diagnosis: Problems: (1) Dementia (2) Paranoia (psychosis) (3) Neurocognitive disorder (4) Cerebrovascular accident (CVA) involving anterior circulation of right side JESSICA SANTIAGO MD Jul 03, 2017 21:14
[2017-07-04 06:27] VITALS: BP 113/50
[2017-07-04] MEDS: DOCUSATE SODIUM 100 MG CAPSULE PO SCH (08:42)
[2017-07-04] MEDS: SERTRALINE 50 MG TABLET. PO SCH (08:43)
[2017-07-04] MEDS: amLODIPine BESYLATE 5 MG TABLET PO SCH (08:44)
[2017-07-04] MEDS: METOPROLOL TART IMMED RELEASE 25 MG TABLET PO SCH ×2 (08:45→19:42)
[2017-07-04] MEDS: QUEtiapine 25 MG TABLET. PO SCH ×2 (08:45→19:42)
--- NOTE | 2017-07-04 14:10 | PN ---
DATE: 07/02/2017 PSYCHIATRIC PROGRESS NOTE This late entry 07/02/2017 covers elements not covered by initial note of 07/02/2017. SUBJECTIVE: The patient had a very difficult night. The previous evening, delusional, believes staffs are trying to kill, hurt the new person on the unit, trying to wake other patients up to warn them, slept 2-3/4 hours. REVIEW OF SYSTEMS: No CV, , pulmonary, eye, ENT system symptoms on review. Reliability is poor. MENTAL STATUS EXAM: Oriented to herself. Insight, judgment, recent and remote memory, attention, concentration, fund of knowledge is poor, consistent with her diagnoses mentioned in my initial note. PLAN: The patient's Seroquel was discontinued and we will get her back on the lower dosage and taper it over the next 3-4 days, though it is likely that once its tapered off she possibly has reemergence of psychotic symptoms. My original plan was to keep her on Seroquel for a month or two that she was stable at the long term and then recommended taper, but the family wanted her off the Seroquel, which we did. We will just have to backtrack a little and see if we can get some sense of stability without the Seroquel gradually. JESSICA SANTIAGO MD DR: YANIV/damián JOB#: [id number] / [id number]
[2017-07-04 16:20] VITALS: BP 130/86
[2017-07-04] MEDS: OMEGA-3 FATTY ACIDS/FISH OIL 1,000 MG CAPSULE. PO SCH (17:49)
--- NOTE | 2017-07-04 19:26 | PN ---
DATE: 07/03/2017 This late entry of 07/03/2017 covers the elements not covered in my initial note of 07/03/2017. HISTORY OF PRESENT ILLNESS: The patient has been fairly calm, confused. REVIEW OF SYSTEMS: No CV, , pulmonary, eye, ENT system symptoms on review. Reliability poor. MENTAL STATUS EXAM: Oriented to herself. Insight, judgment, recent and remote memory, attention, concentration, fund of knowledge poor, consistent with her diagnosis mentioned in my initial note. PLAN: Continue current psychotropics. Adjust further as clinically indicated. MAN April SANTIAGO MD DR: YANIV/damián JOB#: [id number] / [id number]
[2017-07-04] MEDS: MIRTAZAPINE 7.5 MG TABLET. PO SCH (19:42)
[2017-07-04] MEDS: ATORVASTATIN CALCIUM 20 MG TABLET PO SCH (19:43)
--- NOTE | 2017-07-04 21:10 | PDOC ---
Exam Note: Santhosh Note: Please also refer to the separate dictated note~for this date of service dictated separately.~Patient seen individually. Discussed the patient with Nursing staff reviewed the chart.~Reviewed interim history and current functioning. Reviewed vital signs,~Labs/ Radiology~and current medications noted below. Continue current treatment with the changes noted in the dictated addendum note Assessment: Vital Signs: Vital Signs Date Time Temp Pulse Resp B/P (MAP) Pulse Ox O2 Delivery O2 Flow Rate FiO2 07/04/17 19:42 67 130/86 07/04/17 16:20 98.1 16 97 07/03/17 16:26 Room Air I&O Intake and Output 07/04/17 07:00 Intake Total 1140 ml Balance 1140 ml Intake Oral 1140 ml # Voids 1 # Bowel Movements 1 Current Medications: Meds: Current Medications Amlodipine Besylate (Norvasc) 2.5 mg DAILY PO Last administered on 06/07/17 08 :34; Start 06/07/17 at 09:00; Stop 06/07/17 at 18:17; Status DC Metoprolol Tartrate (Lopressor) 12.5 mg BID PO Last administered on 07/04/17 19:42; Start 06/07/17 at 09:00 Atorvastatin Calcium (Lipitor) 40 mg QHS PO Last administered on 07/04/17 19: 43; Start 06/07/17 at 21:00 Fish Oil (Fish Oil) 1,000 mg QPM PO Last administered on 07/04/17 17:49; Start 06/07/17 at 18:00 Fish Oil (Fish Oil) 1,000 mg QODAY PO Last administered on 07/03/17 08:47; Start 06/09/17 at 09:00 Amlodipine Besylate (Norvasc) 5 mg DAILY PO Last administered on 07/04/17 08: 44; Start 06/08/17 at 09:00 Vitamin D (Vitamin D3) 50,000 unit WEEKLY PO Last administered on 06/28/17 09: 00; Start 06/07/17 at 19:00 Olanzapine (ZyPREXA ZYDIS) 2.5 mg PRN Q2HR PRN PO PSYCHOSIS Last administered on 07/02/17 05:55; Start 06/08/17 at 09:00 Quetiapine Fumarate (SEROquel) 12.5 mg TID@0900,1700,2100 PO Last administered on 07/01/17at 08:46; Start 06/08/17 at 21:00; Stop 07/01/17 at 12:24; Status DC Mirtazapine (Remeron) 7.5 mg QHS PO Last administered on 07/04/17at 19:42; Start 06/09/17 at 21:00 Trazodone HCl (Desyrel) 25 mg PRN QHS PRN PO INSOMNIA, MAY REPEAT X1 Last administered on 06/20/17at 21:01; Start 06/09/17 at 18:15 Sertraline HCl (Zoloft) 25 mg DAILY PO Last administered on 06/13/17at 08:41; Start 06/12/17 at 09:00; Stop 06/13/17 at 21:04; Status DC Sertraline HCl (Zoloft) 50 mg DAILY PO Last administered on 06/17/17at 09:16; Start 06/14/17 at 09:00; Stop 06/17/17 at 15:44; Status DC Sertraline HCl (Zoloft) 75 mg DAILY PO Last administered on 07/04/17at 08:43; Start 06/18/17 at 09:00 Magnesium Hydroxide (Milk Of Magnesia) 2,400 mg PRN DAILY PRN PO CONSTIPATION Last administered on 06/22/17at 17:28; Start 06/22/17 at 10:15 Magnesium Hydroxide (Milk Of Magnesia) 2,400 mg 1X ONCE PO ; Start 07/01/17 at 10:15; Stop 07/01/17 at 10:22; Status DC Docusate Sodium (Colace) 100 mg DAILY PO Last administered on 07/04/17at 08:42; Start 07/01/17 at 10:30 Quetiapine Fumarate (SEROquel) 12.5 mg BID PO Last administered on 07/04/17at 19 :42; Start 07/02/17 at 21:00; Stop 07/05/17 at 08:59 Quetiapine Fumarate (SEROquel) 12.5 mg DAILY PO ; Start 07/05/17 at 09:00; Stop 07/07/17 at 08:59 Active Scripts Active Reported [place] 3 1,000 Mg Softgel ([place]-3 Fatty Acids/Fish Oil) 1 Each Capsule 1 Each PO QODAY [place] 3 1,000 Mg Softgel ([place]-3 Fatty Acids/Fish Oil) 1 Each Capsule 1,000 Mg PO QPM Atorvastatin Calcium 40 Mg Tablet 40 Mg PO QHS Norvasc (Amlodipine Besylate) 2.5 Mg Tablet 2.5 Mg PO DAILY Metoprolol Tartrate 25 Mg Tablet 12.5 Mg PO BID I have reviewed the current psychotropics carefully including drug interactions. Risk benefit ratio favors no change other than as noted in my dictated progress note. Diagnosis: Problems: (1) Dementia (2) Paranoia (psychosis) (3) Neurocognitive disorder (4) Cerebrovascular accident (CVA) involving anterior circulation of right side JESSICA SANTIAGO MD Jul 04, 2017 21:10
[2017-07-05] MEDS ORDERED: CHOL500050 PO (01:03)
[2017-07-05] MEDS ORDERED: MAGN400O7 PO (01:04)
[2017-07-05] MEDS ORDERED: DOCU-109 PO (01:04)
[2017-07-05] MEDS ORDERED: MIRT7.5T8 PO (01:06)
[2017-07-05] MEDS ORDERED: OLAN5TAB5 PO (01:06)
[2017-07-05] MEDS ORDERED: QUET25TA5 PO (01:07)
[2017-07-05] MEDS ORDERED: SERT25TA PO (01:10)
[2017-07-05] MEDS ORDERED: TRAZ50TA15 PO (01:11)
[2017-07-05] MEDS ORDERED: AMLO5TAB4 PO (01:11)
[2017-07-05 05:58] VITALS: BP 102/55
[2017-07-05 08:36] VITALS: BP 156/81
[2017-07-05] MEDS: METOPROLOL TART IMMED RELEASE 25 MG TABLET PO SCH (08:37)
[2017-07-05] MEDS: SERTRALINE 50 MG TABLET. PO SCH (08:37)
[2017-07-05] MEDS: DOCUSATE SODIUM 100 MG CAPSULE PO SCH (08:37)
[2017-07-05 08:38] VITALS: BP 156/81
[2017-07-05] MEDS: amLODIPine BESYLATE 5 MG TABLET PO SCH (08:38)
[2017-07-05] MEDS: OMEGA-3 FATTY ACIDS/FISH OIL 1,000 MG CAPSULE. PO SCH (08:39)
[2017-07-05] MEDS: CHOLECALCIFEROL (VITAMIN D3) 50,000 UNIT CAPSULE PO SCH (08:39)
[2017-07-05] MEDS ORDERED: QUEtiapine 25 MG TABLET. PO SCH (09:00)
--- NOTE | 2017-07-05 20:23 | PDOC ---
Exam Note: Santhosh Note: Please also refer to the separate dictated note~for this date of service dictated separately.~Patient seen individually. Discussed the patient with Nursing staff reviewed the chart.~Reviewed interim history and current functioning. Reviewed vital signs,~Labs/ Radiology~and current medications noted below. Continue current treatment with the changes noted in the dictated addendum note Assessment: Vital Signs: Vital Signs Date Time Temp Pulse Resp B/P (MAP) Pulse Ox O2 Delivery O2 Flow Rate FiO2 07/05/17 08:38 67 156/81 07/05/17 05:58 97.4 16 97 07/03/17 16:26 Room Air I&O Intake and Output 07/05/17 07:00 Intake Total 1200 ml Balance 1200 ml Intake Oral 1200 ml # Voids 1 Current Medications: Meds: Current Medications Amlodipine Besylate (Norvasc) 2.5 mg DAILY PO Last administered on 06/07/17 08 :34; Start 06/07/17 at 09:00; Stop 06/07/17 at 18:17; Status DC Metoprolol Tartrate (Lopressor) 12.5 mg BID PO Last administered on 07/05/17 08:37; Start 06/07/17 at 09:00; Stop 07/05/17 at 15:39; Status DC Atorvastatin Calcium (Lipitor) 40 mg QHS PO Last administered on 07/04/17 19: 43; Start 06/07/17 at 21:00; Stop 07/05/17 at 15:39; Status DC Fish Oil (Fish Oil) 1,000 mg QPM PO Last administered on 07/04/17 17:49; Start 06/07/17 at 18:00; Stop 07/05/17 at 15:39; Status DC Fish Oil (Fish Oil) 1,000 mg QODAY PO Last administered on 07/05/17 08:39; Start 06/09/17 at 09:00; Stop 07/05/17 at 15:39; Status DC Amlodipine Besylate (Norvasc) 5 mg DAILY PO Last administered on 07/05/17 08: 38; Start 06/08/17 at 09:00; Stop 07/05/17 at 15:39; Status DC Vitamin D (Vitamin D3) 50,000 unit WEEKLY PO Last administered on 07/05/17at 08: 39; Start 06/07/17 at 19:00; Stop 07/05/17 at 15:39; Status DC Olanzapine (ZyPREXA ZYDIS) 2.5 mg PRN Q2HR PRN PO PSYCHOSIS Last administered on 07/02/17at 05:55; Start 06/08/17 at 09:00; Stop 07/05/17 at 15:39; Status DC Quetiapine Fumarate (SEROquel) 12.5 mg TID@0900,1700,2100 PO Last administered on 07/01/17at 08:46; Start 06/08/17 at 21:00; Stop 07/01/17 at 12:24; Status DC Mirtazapine (Remeron) 7.5 mg QHS PO Last administered on 07/04/17at 19:42; Start 06/09/17 at 21:00; Stop 07/05/17 at 15:39; Status DC Trazodone HCl (Desyrel) 25 mg PRN QHS PRN PO INSOMNIA, MAY REPEAT X1 Last administered on 06/20/17at 21:01; Start 06/09/17 at 18:15; Stop 07/05/17 at 15:39 ; Status DC Sertraline HCl (Zoloft) 25 mg DAILY PO Last administered on 06/13/17at 08:41; Start 06/12/17 at 09:00; Stop 06/13/17 at 21:04; Status DC Sertraline HCl (Zoloft) 50 mg DAILY PO Last administered on 06/17/17at 09:16; Start 06/14/17 at 09:00; Stop 06/17/17 at 15:44; Status DC Sertraline HCl (Zoloft) 75 mg DAILY PO Last administered on 07/05/17at 08:37; Start 06/18/17 at 09:00; Stop 07/05/17 at 15:39; Status DC Magnesium Hydroxide (Milk Of Magnesia) 2,400 mg PRN DAILY PRN PO CONSTIPATION Last administered on 06/22/17at 17:28; Start 06/22/17 at 10:15; Stop 07/05/17 at 15:39; Status DC Magnesium Hydroxide (Milk Of Magnesia) 2,400 mg 1X ONCE PO ; Start 07/01/17 at 10:15; Stop 3/8/18 at 10:22; Status DC Docusate Sodium (Colace) 100 mg DAILY PO Last administered on 07/05/17at 08:37; Start 07/01/17 at 10:30; Stop 07/05/17 at 15:39; Status DC Quetiapine Fumarate (SEROquel) 12.5 mg BID PO Last administered on 07/04/17at 19 :42; Start 07/02/17 at 21:00; Stop 07/05/17 at 08:59; Status DC Quetiapine Fumarate (SEROquel) 12.5 mg DAILY PO Last administered on 07/05/17at 08:37; Start 07/05/17 at 09:00; Stop 07/05/17 at 15:39; Status DC Active Scripts Active Reported Trazodone Hcl 50 Mg Tablet 25 Mg PO PRN QHS PRN Norvasc (Amlodipine Besylate) 5 Mg Tablet 5 Mg PO DAILY Zoloft (Sertraline Hcl) 25 Mg Tablet 75 Mg PO DAILY Seroquel (Quetiapine Fumarate) 25 Mg Tablet 12.5 Mg PO DAILY 2 Days Zyprexa Zydis (Olanzapine) 5 Mg Tab.rapdis 2.5 Mg PO PRN Q2HR PRN Mirtazapine 7.5 Mg Tablet 7.5 Mg PO QHS Milk Of Magnesia (Magnesium Hydroxide) 400 Mg/5 Ml Oral.susp 2,400 Mg PO PRN DAILY PRN Colace (Docusate Sodium) 100 Mg Capsule 100 Mg PO DAILY Vitamin D3 (Cholecalciferol (Vitamin D3)) 50,000 Unit Capsule 50,000 Unit PO WEEKLY [place] 3 1,000 Mg Softgel ([place]-3 Fatty Acids/Fish Oil) 1 Each Capsule 1 Each PO QODAY [place] 3 1,000 Mg Softgel ([place]-3 Fatty Acids/Fish Oil) 1 Each Capsule 1,000 Mg PO QPM Atorvastatin Calcium 40 Mg Tablet 40 Mg PO QHS Metoprolol Tartrate 25 Mg Tablet 12.5 Mg PO BID I have reviewed the current psychotropics carefully including drug interactions. Risk benefit ratio favors no change other than as noted in my dictated progress note. Diagnosis: Problems: (1) Cerebrovascular accident (CVA) involving anterior circulation of right side JESSICA SANTIAGO MD Jul 05, 2017 20:22
--- NOTE | 2017-07-05 22:03 | PN ---
DATE: 07/04/2017 This is a late entry for 07/04/2017 covers elements not covered in my initial note of 07/04/2017. SUBJECTIVE: I met with the patient in the evening of 07/04/2017. The patient remains confused, pleasant, verbal, as I met with her daughter, aggressive, gets a little paranoid at times. REVIEW OF SYSTEMS: No CV, , pulmonary, eye, ENT system symptoms on review. Reliability poor. ; MENTAL STATUS EXAM: Oriented to herself. Insight, judgment, recent and remote memory, attention, concentration, fund of knowledge poor, consistent with her diagnosis mentioned in my initial note. PLAN: Continue current psychotropics. Adjust as clinically indicated. JESSICA SANTIAGO MD DR: YANIV/damián JOB#: [id number] / [id number]
--- NOTE | 2017-07-06 18:15 | DS ---
DATE OF DISCHARGE: 07/05/2017 This is a late entry for 07/05/2017 and covers the elements not covered in my initial note of 07/05/2017. REASON FOR ADMISSION: Please refer to the admission history for details. Briefly, the patient is an 86-year-old female admitted from home by family on account of increasing confusion. Apparently, she attempted to jump out from the vehicle, was increasingly agitated. At one point security had to be called as she was in the car outside a shopping mall. The family felt unsafe with the patient consequent to her worsening confusion. She had failed outpatient psychiatric interventions resulting in this referral. SIGNIFICANT FINDINGS AND CLINICAL COURSE: Following admission, the patient was seen daily individually by myself, followed medically per Dr. Kaiser/Dr. Ramirez. She was quite confused, paranoid, suspicious. Adjustments were made in her psychotropics. She seemed to respond to a combination of Remeron, trazodone, Zoloft and Seroquel. However, the family made it quite clear the preferred the Seroquel be discontinued. Some of the agitation seemed to worsen with this discontinuation and we restarted at a low dosage with a gradual taper. REVIEW OF SYSTEMS: Prior to discharge on 07/05/2017, no CV, , pulmonary, eye, ENT system symptoms on review. Reliability poor. MENTAL STATUS EXAM: Oriented to herself. Insight, judgment, recent and remote memory, attention, concentration, fund of knowledge poor, consistent with her diagnosis. She is much less delusional. CONDITION ON DISCHARGE: Improved. FINAL DIAGNOSES: Major neurocognitive disorder, Alzheimer, vascular with depression, delusion, behavioral disturbance; anxiety disorder, unspecified; impulse control disorder, unspecified. Rest unchanged from admission. DISCHARGE MEDICATIONS: Please refer to the EMRAD. DISCHARGE INSTRUCTIONS: Outpatient psychiatric and medical followup as arranged by social service staff prior to discharge. Time for discharge day management greater than 30 minutes. JESSICA SANTIAGO MD DR: YANIV/damián JOB#: [id number] / [id number]
--- NOTE | 2017-07-06 22:40 | PN ---
DATE: 07/05/2017 This is a late entry 07/05/2017 covers elements not covered in my initial note of 07/05/2017. I met with the patient in the evening of 07/05/2017. MAN pAril SANTIAGO MD DR: YANIV/damián JOB#: [id number] / [id number]
== END 2017-07-05 14:45 | DRG 884 ==
LOC: ER 14:52 → GEROPSY 22:49
PROVIDERS: ADMIT Psychiatry & Neurology Psychiatry; ATTEND Psychiatry & Neurology Psychiatry
DX: F01.51 Vascular dementia, unspecified severity, with behavioral disturbance (principal); D69.6 Thrombocytopenia, unspecified; I48.91 Unspecified atrial fibrillation; F02.81 Dementia in other diseases classified elsewhere, unspecified severity, with behavioral disturbance; G30.9 Alzheimer's disease, unspecified; F22 Delusional disorders; F32.9 Major depressive disorder, single episode, unspecified; F63.9 Impulse disorder, unspecified; F41.9 Anxiety disorder, unspecified; E87.6 Hypokalemia; I10 Essential (primary) hypertension; E78.00 Pure hypercholesterolemia, unspecified; K21.9 Gastro-esophageal reflux disease without esophagitis; I25.10 Atherosclerotic heart disease of native coronary artery without angina pectoris; E78.5 Hyperlipidemia, unspecified; E55.9 Vitamin D deficiency, unspecified; Z90.49 Acquired absence of other specified parts of digestive tract; Z85.72 Personal history of non-Hodgkin lymphomas; Z86.73 Personal history of transient ischemic attack (TIA), and cerebral infarction without residual deficits; I25.2 Old myocardial infarction; Z79.899 Other long term (current) drug therapy; Z91.19 Patient's noncompliance with other medical treatment and regimen
CPT/HCPCS: 36415; 70450; 80053; 80061; 81001; 82306; 82607; 83036; 83540; 83550; 83735; 84436; 84443; 84480; 85025; 85610; 86593; 99285-25

== ENCOUNTER 2020-08-02 19:45 | Emergency (ER) | payer MEDICARE, OTHER ==
[~2020-08-02] VITALS: Ht 165.1 cm; Wt 62.6 kg
[~2020-08-02 19:45] MED LIST changes: +AMLO5TAB4 PO; +ATOR40TA59 PO; +CHOL500050 PO; +DOCU-109 PO; +MAGN400O7 PO; +MIRT7.5T8 PO; +OLAN5TAB99 PO; +OMEG-33 PO; +OMEP40CA45 PO; -OMEP40CA5 PO; +QUET25TA5 PO; +SERT25TA PO; +TRAZ-120 PO; +WARF1TAB2 PO; -WARF1TAB74 PO
--- NOTE | 2020-08-02 20:06 | PHYS DOC ---
Past History Past Medical History: A-Fib, CAD, CVA, Dementia, Depression, GERD, High Cholesterol, Hypertension, [place], UTI, Other Past Surgical History: Cholecystectomy Additional Past Surgical Histo: mastoiditis Smoking: Non-smoker Alcohol Use: None Drug Use: None General Adult EDM: Chief Complaint: MECHANICAL FALL HPI: HPI: 89-year-old female with history of hypertension, hyperlipidemia, dementia, who presents for evaluation mechanical fall. The patient wandered from the home, and tripped over a curb. She sustained a right frontal/temporal scalp abrasion/contusion without laceration. No reported LOC. No focal is a paresthesia. She also sustained mild abrasions to the bilateral knees, but was able to bear weight. History is limited secondary to baseline dementia. Review of Systems: Review of Systems: History limited secondary to baseline dementia. Allergies: Allergies: Allergies Coded Allergies Type Severity Reaction Last Updated Verified No Known Drug Allergies 08/12/13 No Physical Exam: PE: Gen: NAD. Well nourished. Head: Normocephalic. Right frontal/temporal scalp abrasion/contusion without laceration. Eyes: No scleral icterus. No conjunctival injection. PERRL. ENT: MMM. Posterior OP clear. No epistaxis or septal hematoma. Neck: Supple. NT. CV: RRR. Peripheral pulses intact. Resp: CTAB. Chest: No anterior chest wall TTP. Symmetric chest rise. Abd: Soft. NT. ND. MSK: No peripheral cyanosis. No edema. Mild anterior knee abrasions without focal tenderness deformity. Back: No midline spinal TTP or stepoffs. Neuro: A&Ox1. Strength & sensation grossly intact throughout. Skin. Warm. Dry. Psych: Appropriate mood & affect. EKG: EKG: [] Radiology/Procedures: Radiology/Procedures: Exam: CT head and cervical spine without contrast INDICATION: Fall, right temporal injury TECHNIQUE: Sequential axial images through the head and cervical spine were obtained without the administration of IV contrast. Comparisons: None FINDINGS: Head: No focal parenchymal lesion or hemorrhage is identified. There is no midline shift or sulcal effacement. Chronic infarct in the right frontal lobe. Patchy hypodensity in the periventricular white matter. No acute vascular territory infarction is identified. Mccrary-white distinction is preserved. The ventricular system is within normal limits without compression hydrocephalus. The basal cisterns are well maintained. There is a extra cranial soft tissue scalp contusion overlying the right frontal region. The visualized portions of the paranasal sinuses and mastoid air cells are well-pneumatized. No acute fractures. Cervical spine: Straightening of the cervical spine which may positional. Fracture to the cervical spine is not identified. Minimal spondylotic change in the cervical spine with degenerative disc disease greatest at C5-C6. Visualized paraspinal soft tissues are unremarkable. IMPRESSION: 1. Extra cranial soft tissue scalp contusion overlying the right frontal region without underlying osseous or intracranial abnormality. 2. Negative CT C-spine for acute traumatic injury. Exposure: One or more of the following in the visualized dose reduction techniques were utilized for this examination: 1. Automated exposure control 2. Adjustment of the MA and/or KV according to patient size Use of iterative of reconstructive technique Electronically signed by: Sandy Heredia MD (08/02/2020 8:37 PM) [facility] Heart Score: C/O Chest Pain: N/A Risk Factors: Risk Factors: DM, Current or recent (<one month) smoker, HTN, HLP, family history of CAD, obesity. Risk Scores: Score 0 - 3: 2.5% MACE over next 6 weeks - Discharge Home Score 4 - 6: 20.3% MACE over next 6 weeks - Admit for Clinical Observation Score 7 - 10: 72.7% MACE over next 6 weeks - Early Invasive Strategies Course & Med Decision Making: Course & Med Decision Making Pertinent Labs and Imaging studies reviewed. (See chart for details) In summary, 89-year-old female who presents for evaluation mechanical fall with right frontal/parietal scalp injury. No LOC. No focal neurological deficits. Mild knee abrasion, but no focal tenderness or gross deformity. Obtain CT head and cervical spine which are negative for acute traumatic pathology. The patient is well-appearing and nontoxic. Remains hemodynamically stable throughout her ED course. We discharged home with outpatient follow-up. Return precautions given. Patrica Disclaimer: Patrica Disclaimer: This electronic medical record was generated, in whole or in part, using a voice recognition dictation system. Departure Departure: Impression: Primary Impression: Closed head injury Additional Impressions: Scalp abrasion Fall Disposition: 01 DC HOME SELF CARE/HOMELESS Condition: STABLE Referrals: KALANI SHEFFIELD MD (PCP) Patient Instructions: Head Injury, Adult, [id number] Additional Instructions: Your CT head and cervical spine did not show any significant traumatic injury. OMID BUSTILLOS DO Aug 02, 2020 20:06
--- NOTE | 2020-08-02 20:40 | RAD ---
Exam: CT head and cervical spine without contrast INDICATION: Fall, right temporal injury TECHNIQUE: Sequential axial images through the head and cervical spine were obtained without the admi nistration of IV contrast. Comparisons: None FINDINGS: Head: No focal parenchymal lesion or hemorrhage is identified. There is no midline shift or sulcal effaceme nt. Chronic infarct in the right frontal lobe. Patchy hypodensity in the periventricular white matter. No acute vascular territory infarction is identified. Mccrary-white distinction is preserved. The ventricular system is within normal limits without compression hydrocephalus. The basal cisterns are well maintained. There is a extra cranial soft tissue scalp contusion overlying the right frontal region. The visualiz ed portions of the paranasal sinuses and mastoid air cells are well-pneumatized. No acute fractures. Cervical spine: Straightening of the cervical spine which may positional. Fracture to the cervical spine is not identified. Minimal spondylotic change in the cervical spine with degenerative disc disease greatest at C5-C6. Visualized paraspinal soft tissues are unremarkable. IMPRESSION: 1. Extra cranial soft tissue scalp contusion overlying the right frontal region without underlying o sseous or intracranial abnormality. 2. Negative CT C-spine for acute traumatic injury. Exposure: One or more of the following in the visualized dose reduction techniques were utilized for this examination: 1. Automated exposure control 2. Adjustment of the MA and/or KV according to patient size Use of iterative of reconstructive technique Electronically signed by: Sandy Heredia MD (08/02/2020 8:37 PM) [facility]
[2020-08-02] MEDS ORDERED: DIPH,PERTUSS(ACELL),TET VAC/PF 0.5 ML SYRINGE. VAX IM ONE (21:30)
[2020-08-02 21:40] VITALS: BP 150/72
== END 2020-08-02 21:47 | disposition home or self-care (01) ==
LOC: ER 19:45
DX: S00.01XA Abrasion of scalp, initial encounter (principal); S80.212A Abrasion, left knee, initial encounter; S80.211A Abrasion, right knee, initial encounter; I48.91 Unspecified atrial fibrillation; I25.10 Atherosclerotic heart disease of native coronary artery without angina pectoris; F03.90 Unspecified dementia, unspecified severity, without behavioral disturbance, psychotic disturbance, mood disturbance, and anxiety; F32.9 Major depressive disorder, single episode, unspecified; K21.9 Gastro-esophageal reflux disease without esophagitis; E78.00 Pure hypercholesterolemia, unspecified; I10 Essential (primary) hypertension; I25.2 Old myocardial infarction; Z87.440 Personal history of urinary (tract) infections; Z86.73 Personal history of transient ischemic attack (TIA), and cerebral infarction without residual deficits; W18.09XA Striking against other object with subsequent fall, initial encounter; Y93.89 Activity, other specified; Y92.89 Other specified places as the place of occurrence of the external cause; Y99.8 Other external cause status
CPT/HCPCS: 70450; 72125; 90471; 90715; 99285

== ENCOUNTER 2020-08-22 16:22 | Emergency (ER) | payer MEDICARE, OTHER ==
[~2020-08-22] VITALS: Ht 165.1 cm; Wt 61.0 kg
--- NOTE | 2020-08-22 17:21 | RAD ---
EXAM: Chest, single view. HISTORY: Altered mental status. COMPARISON: 02/17/2017 FINDINGS: A frontal view of the chest is obtained. There is no infiltrate, pleural effusion or pneumo thorax. The heart is normal in size. IMPRESSION: No acute pulmonary finding. Electronically signed by: Chasity Ralph MD (08/22/2020 5:18 PM) [id number]
--- NOTE | 2020-08-22 17:22 | RAD ---
CT HEAD INDICATION: Altered mental status COMPARISON: 08/12/2020 Exposure: One or more of the following individualized dose reduction techniques were utilized for thi s examination: 1. Automated exposure control 2. Adjustment of the mA and/or kV according to patient size 3. Use of iterative reconstruction technique TECHNIQUE: 5 mm contiguous axial images were obtained from the skull base to the vertex in both bone and soft tissue algorithm. FINDINGS: Mild bilateral periventricular white matter hypodensities likely chronic small vessel ischemic diseas e. Small hypodensity identified in the old infarct right medial frontal lobe similar to prior exam, l jenely old infarct.. No evidence of acute intracranial hemorrhage. No extra-axial fluid collections. No mass effect or midline shift. Ventricular size is appropriate. Basal cisterns are patent. No fractures identified.Mccrary-white differentiation is preserved.Globes and orbits are within normal l imits. Paranasal sinuses and mastoid air cells are clear. IMPRESSION: No acute intracranial findings. Electronically signed by: Ashvin Martin MD (08/22/2020 5:19 PM) [id number]
--- NOTE | 2020-08-22 17:28 | PHYS DOC ---
Past History Past Medical History: A-Fib, CAD, CVA, Dementia, Depression, GERD, High Cholesterol, Hypertension, [place], UTI, Other (SUZAN DIOP MD) Past Surgical History: Cholecystectomy Additional Past Surgical Histo: mastoiditis (SUZAN DIOP MD) Smoking: Non-smoker Alcohol Use: None Drug Use: None (USZAN DIOP MD) General Adult EDM: Chief Complaint: ALTERED MENTAL STATUS HPI: HPI: Patient is a 89-year-old female brought in for the parents combative versus argumentative behavior. History is vague as to the person who dropped the patient off left immediately. 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 Patient's daughter left for a week of vacation with her today, patient was aware of the trip for a while. The patient's son-in-law sister offered to stay with her over the weekend and can help her out but reports she was possibly "combative" or yelling. When patient's daughter talked to her she was demanded that she come back home. Patient has a history of dementia and has been more frequently sundowning. Per daughter she also history of dehydration and is concerned that might be contributing. Patient states she otherwise been well denies any pain or recent falls. Says she is upset and is tearful discussing arguing with her daughter this evening. (SUZAN DIOP MD) Review of Systems: Review of Systems: All other systems within normal limits except for as noted in the HPI (SUZAN DIOP MD) Allergies: Allergies: Allergies Coded Allergies Type Severity Reaction Last Updated Verified No Known Drug Allergies 08/12/13 No (SUZAN DIOP MD) Physical Exam: PE: Constitutional: Well developed, well nourished, no acute distress, non-toxic appearance. [] HENT: Normocephalic, atraumatic, bilateral external ears normal, nose normal. [] Eyes: PERRLA, conjunctiva normal, no discharge. [] Neck: No rigidity, supple, no stridor. [] Cardiovascular: Regular rate and rhythm, brisk cap refill [] Lungs & Thorax: Non labored symmetric respirations, no tachypnea or respiratory distress [] Abdomen: Soft, nondistended. Skin: Warm, dry, no erythema, no rash. [] Back: Unremarkable Extremities: No deformities, range of motion grossly intact, no lower extremity edema [] Neurologic: Alert and oriented X 3, no focal deficits noted. [] Psychologic: Affect normal, tearful [] (SUZAN DIOP MD) Current Patient Data: Vital Signs: Vital Signs Date Time Temp Pulse Resp B/P (MAP) Pulse Ox O2 Delivery O2 Flow Rate FiO2 08/22/20 16:25 98.0 68 20 197/67 (110) 98 (SUZAN DIOP MD) Labs: Laboratory Tests Test 08/22/20 16:50 08/22/20 17:30 Urine Collection Type Unknown Urine Color Yellow Urine Clarity Cloudy Urine pH 5.5 Urine Specific [place] >=1.030 Urine Protein Neg Urine Glucose (UA) Neg mg/dL Urine Ketones (Stick) Neg mg/dL Urine Blood Neg Urine Nitrite Neg Urine Bilirubin Neg Urine Urobilinogen Dipstick 0.2 mg/dL Urine Leukocyte Esterase Neg Urine RBC 0 /HPF Urine WBC 0 /HPF Urine Squamous Epithelial Cells Occ /LPF Urine Bacteria Many /HPF White Blood Count 5.5 x10^3/uL Red Blood Count 3.30 x10^6/uL Hemoglobin 10.9 g/dL Hematocrit 32.4 % Mean Corpuscular Volume 98 fL Mean Corpuscular Hemoglobin 33 pg Mean Corpuscular Hemoglobin Concent 34 g/dL Red Cell Distribution Width 15.1 % Platelet Count 216 x10^3/uL Neutrophils (%) (Auto) 77 % Lymphocytes (%) (Auto) 13 % Monocytes (%) (Auto) 4 % Eosinophils (%) (Auto) 5 % Basophils (%) (Auto) 1 % Neutrophils # (Auto) 4.3 x10^3uL Lymphocytes # (Auto) 0.7 x10^3/uL Monocytes # (Auto) 0.2 x10^3/uL Eosinophils # (Auto) 0.3 x10^3/uL Basophils # (Auto) 0.1 x10^3/uL Sodium Level 142 mmol/L Potassium Level 3.9 mmol/L Chloride Level 108 mmol/L Carbon Dioxide Level 25 mmol/L Anion Gap 9 Blood Urea Nitrogen 17 mg/dL Creatinine 0.8 mg/dL Estimated GFR (Cockcroft-Gault) 67.8 BUN/Creatinine Ratio 21 Glucose Level 100 mg/dL Calcium Level 8.5 mg/dL Magnesium Level 1.9 mg/dL Total Bilirubin 0.4 mg/dL Aspartate Amino Transf (AST/SGOT) 15 U/L Alanine Aminotransferase (ALT/SGPT) 17 U/L Alkaline Phosphatase 70 U/L Troponin I Quantitative < 0.017 ng/mL KH-Ahm-A-Type Natriuretic Peptide 1123 pg/mL Total Protein 6.2 g/dL Albumin 3.6 g/dL Albumin/Globulin Ratio 1.4 (TITO REYES DO) EKG: EKG: Sinus rhythm, heart rate 66 bpm, occasional PVC, right bundle branch block, normal axis, no ST elevation or depression. [] (SUZAN DIOP MD) Radiology/Procedures: Radiology/Procedures: EXAM: Chest, single view. HISTORY: Altered mental status. COMPARISON: 02/17/2017 FINDINGS: A frontal view of the chest is obtained. There is no infiltrate, pleural effusion or pneumothorax. The heart is normal in size. IMPRESSION: No acute pulmonary finding. CT HEAD INDICATION: Altered mental status COMPARISON: 08/12/2020 Exposure: One or more of the following individualized dose reduction techniques were utilized for this examination: 1. Automated exposure control 2. Adjustment of the mA and/or kV according to patient size 3. Use of iterative reconstruction technique TECHNIQUE: 5 mm contiguous axial images were obtained from the skull base to the vertex in both bone and soft tissue algorithm. FINDINGS: Mild bilateral periventricular white matter hypodensities likely chronic small vessel ischemic disease. Small hypodensity identified in the old infarct right medial frontal lobe similar to prior exam, likely old infarct.. No evidence of acute intracranial hemorrhage. No extra-axial fluid collections. No mass effect or midline shift. Ventricular size is appropriate. Basal cisterns are patent. No fractures identified.Mccrary-white differentiation is preserved.Globes and orbits are within normal limits. Paranasal sinuses and mastoid air cells are clear. IMPRESSION: No acute intracranial findings. [] (SUZAN DIOP MD) Radiology/Procedures: CT HEAD INDICATION: Altered mental status COMPARISON: 08/12/2020 Exposure: One or more of the following individualized dose reduction techniques were utilized for this examination: 1. Automated exposure control 2. Adjustment of the mA and/or kV according to patient size 3. Use of iterative reconstruction technique TECHNIQUE: 5 mm contiguous axial images were obtained from the skull base to the vertex in both bone and soft tissue algorithm. FINDINGS: Mild bilateral periventricular white matter hypodensities likely chronic small vessel ischemic disease. Small hypodensity identified in the old infarct right medial frontal lobe similar to prior exam, likely old infarct.. No evidence of acute intracranial hemorrhage. No extra-axial fluid collections. No mass effect or midline shift. Ventricular size is appropriate. Basal cisterns are patent. No fractures identified.Mccrary-white differentiation is preserved.Globes and orbits are within normal limits. Paranasal sinuses and mastoid air cells are clear. IMPRESSION: No acute intracranial findings. Electronically signed by: Ashvin Martin MD (08/22/2020 5:19 PM) [id number] ///////////// EXAM: Chest, single view. HISTORY: Altered mental status. COMPARISON: 02/17/2017 FINDINGS: A frontal view of the chest is obtained. There is no infiltrate, pleural effusion or pneumothorax. The heart is normal in size. IMPRESSION: No acute pulmonary finding. Electronically signed by: Chasity Ralph MD (08/22/2020 5:18 PM) [id number] (TITO REYES DO) Heart Score: C/O Chest Pain: No Risk Factors: Risk Factors: DM, Current or recent (<one month) smoker, HTN, HLP, family history of CAD, obesity. Risk Scores: Score 0 - 3: 2.5% MACE over next 6 weeks - Discharge Home Score 4 - 6: 20.3% MACE over next 6 weeks - Admit for Clinical Observation Score 7 - 10: 72.7% MACE over next 6 weeks - Early Invasive Strategies (SUZAN DIOP MD) Course & Med Decision Making: Course & Med Decision Making Pertinent Labs and Imaging studies reviewed. (See chart for details) Care transitioned to Dr. Umanzor at shift change, pending labs and placement. Imaging unremarkable. [] (SUZAN DIOP MD) Course & Med Decision Making I assumed care of patient after comprehensive signout from off going physician. I reviewed ER work-up thus far. I personally saw patient and repeated certain aspects of history and physical exam I reviewed entirety of ordered ER work-up and agreed with what was ordered, all was negative for any emergent or surgical findings. Patient appeared to be at baseline health and stable after numerous reevaluations by myself and colleagues Discussed case with patient and daughter whom patient will be staying with over the weekend, discussed no indication for hospitalization or other advanced work- up while in ER setting. Joint decision made to discharge home with close PCP follow-up Strict return precautions were discussed with good understanding, all questions and concerns addressed prior to ER departure (TITO REYES DO) Dragon Disclaimer: Dragon Disclaimer: This electronic medical record was generated, in whole or in part, using a voice recognition dictation system. 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 There is no indication for further work-up or hospital admission. As discussed, it is advised that you contact your primary care physician first thing tomorrow morning to review ER visit today and discuss need for close outpatient follow-up. If any concerning signs or symptoms present prior to outpatient follow-up please do not hesitate to come back for repeat evaluation. It was a pleasure to take care of you and I wish you the best going forward SUZAN DIOP MD Aug 22, 2020 17:28 TITO REYES DO Aug 22, 2020 18:37
--- NOTE | 2020-08-22 17:38 | EKG ---
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
[2020-08-22 17:39] LABS: BACTERIA,URINE MANY /HPF (0-FEW); BILIRUBIN,URINE NEG (NEG); CLARITY,URINE CLOUDY; COLOR,URINE YELLOW; GLUCOSE,URINE NEG (NEG); NITRITE,URINE NEG (NEG); RBC,URINE 0 /HPF (0-2); SQUAMOUS EPITHELIAL CELL,UR OCC /LPF; UROBILINOGEN,URINE 0.2 mg/dL (0.2 mg/dL); WBC,URINE 0 /HPF (0-4)
[2020-08-22 17:54] LABS: BASO # 0.1 x10^3/uL (0.0-0.2); BASO % 1 % (0-3); EOS # 0.3 x10^3/uL (0.0-0.7); EOS % 5 % (0-3); HEMATOCRIT 32.4 % (36.0-47.0); HEMOGLOBIN 10.9 g/dL (12.0-15.5); LYMPH # 0.7 x10^3/uL (1.0-4.8); LYMPH % 13 % (24-48); MEAN CORPUSCULAR HEMOGLOBIN 33 pg (25-35); MEAN CORPUSCULAR HGB CONC 34 g/dL (31-37); MEAN CORPUSCULAR VOLUME 98 fL (79-100); MONO # 0.2 x10^3/uL (0.0-1.1); MONO % 4 % (0-9); NEUT # 4.3 x10^3uL (1.8-7.7); NEUT % 77 % (31-73); PLATELET COUNT 216 x10^3/uL (140-400); RED CELL DISTRIBUTION WIDTH 15.1 % (11.5-14.5); WHITE BLOOD COUNT 5.5 x10^3/uL (4.0-11.0)
[2020-08-22 17:59] LABS: CALCIUM 8.5 mg/dL (8.5-10.1); CREATININE 0.8 mg/dL (0.6-1.0); GFR 67.8; POTASSIUM 3.9 mmol/L (3.5-5.1)
[2020-08-22 18:12] LABS: ALBUMIN 3.6 g/dL (3.4-5.0); ALBUMIN/GLOBULIN RATIO 1.4 (1.0-1.7); MAGNESIUM 1.9 mg/dL (1.8-2.4); TOTAL BILIRUBIN 0.4 mg/dL (0.2-1.0); TOTAL PROTEIN 6.2 g/dL (6.4-8.2)
[2020-08-22 21:05] VITALS: BP 143/52
== END 2020-08-22 21:05 | disposition home or self-care (01) ==
LOC: ER 16:22
DX: G30.9 Alzheimer's disease, unspecified (principal); F02.81 Dementia in other diseases classified elsewhere, unspecified severity, with behavioral disturbance; I48.91 Unspecified atrial fibrillation; I25.10 Atherosclerotic heart disease of native coronary artery without angina pectoris; F32.9 Major depressive disorder, single episode, unspecified; K21.9 Gastro-esophageal reflux disease without esophagitis; E78.00 Pure hypercholesterolemia, unspecified; I10 Essential (primary) hypertension; I25.2 Old myocardial infarction; Z87.440 Personal history of urinary (tract) infections; Z86.73 Personal history of transient ischemic attack (TIA), and cerebral infarction without residual deficits
CPT/HCPCS: 36415; 70450; 71045; 80053; 81001; 83735; 83880; 84443; 84484; 85025; 87086; 93005; 99285

== ENCOUNTER 2020-11-15 15:14 | Inpatient (IN) | payer MEDICARE, OTHER ==
[~2020-11-15] VITALS: Ht 162.6 cm; Wt 55.0 kg
[~2020-11-15 15:14] MED LIST changes: -OMEP40CA45 PO; +OMEP40CA7 PO
--- NOTE | 2020-11-15 16:46 | PHYS DOC ---
Past History Past Medical History: A-Fib, CAD, CVA, Dementia, Depression, GERD, High Cholesterol, Hypertension, [place], UTI, Other (SUZAN DIOP MD) Past Surgical History: Cholecystectomy Additional Past Surgical Histo: mastoiditis (SUZAN DIOP MD) Smoking: Non-smoker Alcohol Use: None Drug Use: None (SUZAN DIOP MD) General Adult EDM: Chief Complaint: ABDOMINAL PAIN HPI: HPI: Patient is a [female coming in for right-sided abdominal pain. Per daughter she had fallen about 1 week ago was complaining of bilateral flank pain but now is complaining of pain on the right mid abdomen. He denies any changes in pain with p.o. intake or bowel movements. Denies any urinary complaints. (SUZAN DIOP MD) Review of Systems: Review of Systems: All other systems within normal limits except for as noted in the HPI (SUZAN DIOP MD) Allergies: Allergies: Allergies Coded Allergies Type Severity Reaction Last Updated Verified No Known Drug Allergies 08/12/13 No (SUZAN DIOP MD) Physical Exam: PE: Constitutional: Well developed, well nourished, no acute distress, non-toxic appearance. [] HENT: Normocephalic, atraumatic, bilateral external ears normal, nose normal. [] Eyes: PERRLA, conjunctiva normal, no discharge. [] Neck: No rigidity, supple, no stridor. [] Cardiovascular: Regular rate and rhythm, brisk cap refill [] Lungs & Thorax: Non labored symmetric respirations, no tachypnea or respiratory distress [] Abdomen: Soft, nondistended, tenderness on right abdomen at level of umbilicus, no guarding or rebound, negative Rovsing. Skin: Warm, dry, no erythema, no rash. [] Back: Unremarkable Extremities: No deformities, range of motion grossly intact, no lower extremity edema [] Neurologic: Alert and oriented X 3, no focal deficits noted. [] Psychologic: Affect normal, judgement normal, mood normal. [] (SUZAN DIOP MD) Current Patient Data: Vital Signs: Vital Signs Date Time Temp Pulse Resp B/P (MAP) Pulse Ox O2 Delivery O2 Flow Rate FiO2 11/15/20 15:35 97.6 54 18 111/39 100 Room Air (SUZAN DIOP MD) EKG: EKG: [] (SUZAN DIOP MD) Radiology/Procedures: Radiology/Procedures: [] (SUZAN DIOP MD) Heart Score: C/O Chest Pain: No Risk Factors: Risk Factors: DM, Current or recent (<one month) smoker, HTN, HLP, family history of CAD, obesity. Risk Scores: Score 0 - 3: 2.5% MACE over next 6 weeks - Discharge Home Score 4 - 6: 20.3% MACE over next 6 weeks - Admit for Clinical Observation Score 7 - 10: 72.7% MACE over next 6 weeks - Early Invasive Strategies (SUZAN DIOP MD) Course & Med Decision Making: Course & Med Decision Making Pending UA and imaging at signout. (SUZAN DIOP MD) Course & Med Decision Making Took over patient's care at checkout pending work-up. Patient with dementia and poor historian, and concern for safety at home as well as mild elevation in creatinine with findings on CT and chest x-ray suggestive of pneumonia. Patient started on antibiotics and IV fluid resuscitation. Given pain medication. Admitted to [facility] for continued evaluation and treatment after discussing patient with Dr. Garcia. (LIZA DOWNEY MD) Dragon Disclaimer: Dragon Disclaimer: This electronic medical record was generated, in whole or in part, using a voice recognition dictation system. (SUZAN DIOP MD) Departure Departure: Impression: Primary Impression: Fall Additional Impression: Abdominal pain Referrals: KALANI SHEFFIELD MD (PCP) SUZAN DIOP MD Nov 15, 2020 16:46 LIZA DOWNEY MD Nov 15, 2020 20:02
[2020-11-15 17:00] LABS: BASO # 0.1 x10^3/uL (0.0-0.2); BASO % 2 % (0-3); EOS # 0.1 x10^3/uL (0.0-0.7); EOS % 2 % (0-3); HEMATOCRIT 25.7 % (36.0-47.0); HEMOGLOBIN 8.8 g/dL (12.0-15.5); LYMPH # 0.8 x10^3/uL (1.0-4.8); LYMPH % 13 % (24-48); MEAN CORPUSCULAR HEMOGLOBIN 34 pg (25-35); MEAN CORPUSCULAR HGB CONC 34 g/dL (31-37); MEAN CORPUSCULAR VOLUME 99 fL (79-100); MONO # 0.1 x10^3/uL (0.0-1.1); MONO % 2 % (0-9); NEUT # 4.7 x10^3uL (1.8-7.7); NEUT % 81 % (31-73); PLATELET COUNT 339 x10^3/uL (140-400); RED CELL DISTRIBUTION WIDTH 17.2 % (11.5-14.5); WHITE BLOOD COUNT 5.8 x10^3/uL (4.0-11.0)
[2020-11-15 17:08] LABS: CALCIUM 8.8 mg/dL (8.5-10.1); CREATININE 1.2 mg/dL (0.6-1.0); GFR 42.5; POTASSIUM 3.8 mmol/L (3.5-5.1)
[2020-11-15 17:14] LABS: ALBUMIN 2.9 g/dL (3.4-5.0); ALBUMIN/GLOBULIN RATIO 0.8 (1.0-1.7); TOTAL BILIRUBIN 0.7 mg/dL (0.2-1.0); TOTAL PROTEIN 6.6 g/dL (6.4-8.2)
[2020-11-15] MEDS ORDERED: IOHEXOL 300 MG/ML 75 ML VIAL. IV ONE ×2 (17:30→20:30)
[2020-11-15] MEDS ORDERED: IOHEXOL 300 MG/ML 75 ML VIAL. ONE (17:35)
--- NOTE | 2020-11-15 18:13 | RAD ---
Exam: CT of abdomen and pelvis with contrast INDICATION: Fall one week ago TECHNIQUE: Sequential axial images through the abdomen and pelvis obtained following the administrati on of 60 mL of Isovue-370 IV contrast. Sagittal and coronal reformatted images were reconstructed fro m the axial data and reviewed. Exposure: One or more of the following in the visualized dose reduction techniques were utilized for this examination: 1. Automated exposure control 2. Adjustment of the MA and/or KV according to patient size 3. Use of iterative of reconstructive technique Comparisons: None FINDINGS: Heart size is normal. No pericardial. There is extensive strandy opacities at the dependent portion l ungs. No pleural effusion. Liver, spleen, pancreas, and adrenals are unremarkable. Gallbladder surgically absent. No perinephric inflammation or hydronephrosis. No renal or ureteral calculi are identified. Bladder is decompressed not well evaluated. Uterus is not enlarged. No abnormal adnexal mass. Large and small bowel are unremarkable. Appendix is nonidentified. No free intra-abdominal air or flu id. No obstruction. Abdominal aorta has a normal course and caliber. Abdominal vasculature is patent. No enlarged abdominal lymph nodes are identified. No suspicious osseous lesions or acute fractures. IMPRESSION: 1. No sequela of acute traumatic injury identified within the abdomen or pelvis. 2. Extensive strandy opacities the dependent portion lungs favored represent atelectasis. Difficult to exclude developing infectious process. Electronically signed by: Sandy Heredia MD (11/15/2020 6:11 PM) [facility]
[2020-11-15] MEDS ORDERED: IV RINGERS SOLUTION,LACTATED 1,000 ML IV ONE (19:00)
[2020-11-15] MEDS ORDERED: AZITHROMYCIN 250 MG TABLET. PO ONE (19:15)
[2020-11-15] MEDS ORDERED: AZITHROMYCIN 250 MG TABLET. ONE (19:21)
[2020-11-15] MEDS ORDERED: cefTRIAXone SODIUM 1 GM VIAL ONE (19:21)
[2020-11-15] MEDS ORDERED: IV NORMAL SALINE 50ML 50 ML ONE (19:22)
[2020-11-15 19:26] LABS: AMORPHOUS SEDIMENT,UR PRESENT /HPF; BACTERIA,URINE MOD /HPF (0-FEW); BILIRUBIN,URINE SMALL (NEG); CLARITY,URINE HAZY; COLOR,URINE AMBER; GLUCOSE,URINE NEG (NEG); NITRITE,URINE NEG (NEG); RBC,URINE RARE /HPF (0-2); SQUAMOUS EPITHELIAL CELL,UR OCC /LPF; WBC,URINE OCC /HPF (0-4)
--- NOTE | 2020-11-15 19:40 | RAD ---
XR CHEST 1V History: Cardiac workup Comparison: 08/22/2020 Technique: Portable AP radiograph of the chest. Findings: The lungs are adequately and symmetrically inflated. There are patchy airspace opacities bilaterally. A reticular linear reflection is present along the left lateral chest wall which may represent a loc ulated pneumothorax. Question adjacent rib lucency in the lateral fifth and sixth ribs. No pleural ef fusion. The cardiac mediastinal silhouette and pulmonary vasculature are within normal limits. Soft t issues are unremarkable. Impression: 1. Patchy multifocal opacities concerning for diffuse infectious process. 2. Linear reflection vertically oriented in the left lateral thorax may represent loculated pneumoth orax. Question adjacent rib fractures. Correlate for history of trauma. Recommend CT chest for furthe r evaluation. Electronically signed by: Oren Meyer MD (11/15/2020 7:37 PM) [facility]
--- NOTE | 2020-11-15 21:25 | RAD ---
CT chest with contrast. HISTORY: Abnormal chest x-ray CT scan the chest was done using 60 mL Omnipaque contrast. Thyroid is homogeneous. There is no medias tinal adenopathy. There are patchy areas of infiltrate bilaterally. Atypical pneumonia or Covid 19 pn eumonia could have this pattern. The heart is normal in size. There is a trace of pleural effusion on the left. Visualized portions the liver is unremarkable. There is decreased enhancement at the super ior lateral aspect of the spleen. A focal splenic infarct is possible. Adrenal glands are normal. Vieyra creas is normal. There is no central pulmonary embolus. There is a calcified plaque at the aortic arch. There is a focal thrombus in the lumen of the aorta d istending down proximal descending aorta. There is also a defect focal thrombus posterior wall the de scending aorta much smaller. Definitive dissection is not identified. There is extensive plaque at th e left renal artery with severe stenosis. There is atrophy of the left kidney. IMPRESSION: 1. Patchy bilateral infiltrates suggesting atypical pneumonia or Covid-19 pneumonia. 2. Focus of decreased enhancement in the spleen possible splenic infarct. 3. Hypodense clot in the distal aortic arch. 4. Small focal thrombus extending into the lumen of the descending thoracic aorta. 5. Atrophy left kidney with left renal artery stenosis. 6. No pneumothorax. FOR INTERNAL CODING PURPOSES Critical result: Findings discussed with ER physician at 11/15/2020 9:22 PM. RESULT CODE: (C) PQRS Compliance Statement: One or more of the following individualized dose reduction techniques were utilized for this examinat ion: 1. Automated exposure control 2. Adjustment of the mA and/or kV according to patient size 3. Use of iterative reconstruction technique Electronically signed by: Negro Aranda MD (11/15/2020 9:23 PM) [facility]
[2020-11-15] MEDS ORDERED: ENOXAPARIN 30 MG/0.3 ML SYRINGE. SQ ONE (21:45)
--- NOTE | 2020-11-15 22:38 | NUR ---
The patient, MOOK QUIJANO, 89 y/o, F admitted by SHAZIA MOORE MD, was given written information regarding hospital policies, unit procedures and contact persons. Valuables were checked and logged. Call light at bed side. Bed alarm on.
[2020-11-15 22:45] VITALS: BP 170/74
--- NOTE | 2020-11-15 23:00 | NUR ---
Called MD about pain medications and orders received. MD wanted this nurse to clarify pt's code status with her daughter. Called pt's daughter and received pt's medications, and clarified code status. DPOA does want pt to be a full code.
[2020-11-16] MEDS ORDERED: MEMA10TA PO (00:30)
[2020-11-16] MEDS ORDERED: ASPI81TA59 PO (00:30)
[2020-11-16] MEDS ORDERED: AMLO2.5T5 PO (00:30)
[2020-11-16] MEDS ORDERED: ASCO500C9 PO (00:30)
[2020-11-16] MEDS ORDERED: ALFA250T PO (00:30)
[2020-11-16 03:00] VITALS: BP 142/57
--- NOTE | 2020-11-16 06:46 | NUR ---
Pt was incontinent and staff was trying to clean pt up. Pt kept saying "No! No! What are you doing? Why am I here? I don't know you." This nurse would try to reassure pt and pt kept asking the same questions. Pt then tried to hit staff while changing her brief.
[2020-11-16 08:03] VITALS: BP 150/55
--- NOTE | 2020-11-16 09:12 | HP ---
ADMIT DATE: 11/16/2020 ATTENDING PHYSICIAN: Dr. Garcia. CHIEF COMPLAINT: Right-sided abdominal pain. HISTORY OF PRESENT ILLNESS: The patient is an 89-year-old female admitted through the ED with right-sided abdominal pain. The pain is right below the anterior ribcage. She had fallen a week ago. A CT of the chest demonstrated questionable infiltrate. She is a person under investigation. She has an old rib fracture that is healing. She was admitted for pain control and rule out atypical pneumonia. She could not give much history about her vaccination. Her daughter is the power of transactional attorney. PAST MEDICAL HISTORY: Gleaned from the chart. 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 CURRENT MEDICATIONS: Reviewed. She was on amlodipine, vitamin C, aspirin, docusate, Namenda, omega 3 fish oil, Zoloft 25 mg daily. She was given fentanyl, azithromycin, ceftriaxone in the ED. ALLERGIES: She has no recorded drug allergies. SOCIAL HISTORY: She is a nonsmoker, nondrinker. FAMILY HISTORY: Unobtainable. REVIEW OF SYSTEMS: Unobtainable due to the patient's confusion. PHYSICAL EXAMINATION: GENERAL: When I saw her, this is a confused elderly female. VITAL SIGNS: Initial vital signs showed a blood pressure 150/55, pulse is 63 and regular. She is afebrile. HEENT: Head is without trauma. Pupils are reactive. Sclerae nonicteric. Oropharynx clear. NECK: Supple, no bruits. LUNGS: Shallow respirations. CARDIOVASCULAR: Regular heart tones. No gallops. ABDOMEN: Distinct sharp pain on palpation in the right upper quadrant. EXTREMITIES: Show no cyanosis or edema. NEUROLOGIC: Profoundly confused. PERTINENT LABORATORY AND X-RAY STUDIES: Hemoglobin is 8.8 g/dL with a white count 5800. Electrolytes within normal range. Cardiac enzymes negative. Creatinine is 1.[address] of the chest and abdomen was done, shows patchy bilateral infiltrates suggesting atypical pneumonia, focus of decreased enhancement of the spleen with a possible splenic infarct. Atrophy of the left kidney. Probable old fracture seen in the right ribcage. ASSESSMENT: 1. An 89-year-old female who fell a week ago, sustaining injury to the right ribcage. 2. Profound dementia. 3. Atypical infiltrates, rule out COVID-19 pneumonia. 4. Anemia of chronic disease. PLAN: 1. Empiric antibiotics given. 2. Person under investigation. 3. Continue some home meds. 4. I shall call her daughter to ascertain her code status. Prognosis is guarded. LEONELA DR: Nilda TID: [id number] CC: KALANI SHEFFIELD MD
[2020-11-16 11:25] VITALS: BP 161/54
[2020-11-16 15:08] VITALS: BP 155/68
[2020-11-16] MEDS: ENOXAPARIN 30 MG/0.3 ML SYRINGE. SQ SCH (17:14)
[2020-11-16 19:20] VITALS: BP 138/50
[2020-11-16] MEDS: AZITHROMYCIN 500 MG in IV NORMAL SALINE 250ML 250 ML IV SCH (19:41)
[2020-11-16] MEDS: DEXAMETHASONE SOD PHOS 4 MG/ML VIAL. IVP SCH (19:42)
[2020-11-16 22:41] VITALS: BP 141/54
[2020-11-17 02:45] VITALS: BP 153/55
--- NOTE | 2020-11-17 03:49 | NUR ---
Sleeping soundly most of the night thus far; easily awakens to voice, c/o right sided flank/rib pain during repositioning but denies discomfort when at rest; VSS, telemetry shows NSR with occasional PVC; oriented to self only, easily distressed but responds well to reassurance; incontinent of urine, briefs changed and spencer care provided as needed; existing IV site to right antecubital occluded, removed with cath tip intact; new IV site obtained via #20g to left forearm, tolerated well, antibiotics infused as per order without difficulty; no needs identified at this time.
[2020-11-17] MEDS: DEXAMETHASONE SOD PHOS 4 MG/ML VIAL. IVP SCH ×2 (08:48→20:25)
[2020-11-17 12:10] VITALS: BP 180/53
--- NOTE | 2020-11-17 17:25 | PN ---
DATE: 11/17/2020 ATTENDING PHYSICIAN: Dr. Garcia. SUBJECTIVE: The patient is comfortable. She is pleasantly confused. She has no new complaints. OBJECTIVE FINDINGS: Her serology did come back indeed positive for the coronavirus. I suspect that it is a delta variant. VITAL SIGNS: Her blood pressure this morning is 150/55, her pulse is 62 and regular. She is afebrile. Oxygen saturation 95% on room air. HEENT: Head is without trauma. Pupils are reactive. Sclerae nonicteric. Oropharynx clear. NECK: Supple. LUNGS: Shallow respirations. CARDIOVASCULAR: Showed regular heart tones. No gallops. ABDOMEN: Soft. There is tenderness to palpation of the right upper quadrant underneath the ribcage. NEUROLOGIC: She is pleasantly confused. She has no idea what is going on. ASSESSMENT: 1. An 89-year-old female who fell sustaining injury to the right rib cage with crack. 2. New diagnosis of COVID-19 pneumonia. It is a mild case as her oxygen saturation is adequate and she does not require much of any supplemental oxygen at this time. 3. Anemia of chronic disease. 4. Profound dementia. PLAN: 1. Empiric antibiotics will be continued another day. 2. Pain control. 3. COVID exposure and family will be notified. 4. I will contact the family. She is still a full code. We will ascertain her code status. LINDSEY DR: Nilda TID: [id number] CC: KALANI SHEFFIELD MD
[2020-11-17] MEDS: ENOXAPARIN 30 MG/0.3 ML SYRINGE. SQ SCH (17:46)
--- NOTE | 2020-11-17 18:33 | PN ---
DATE: 11/17/2020 ATTENDING PHYSICIAN: Dr. Garcia. SUBJECTIVE: Pleasantly confused. Pain is better managed. OBJECTIVE FINDINGS: She did have a positive coronavirus swab, which I suspect is a delta variant. VITAL SIGNS: Blood pressure is stable. LUNGS: Good breath sounds. Oxygen saturation 95% on room air. HEENT: Head is without trauma. Pupils are reactive. Sclerae nonicteric. Oropharynx clear. NECK: Supple. LUNGS: Good breath sounds. CARDIOVASCULAR: Regular heart tones. ABDOMEN: Soft. NEUROLOGIC: Function focally intact. Pleasantly confused. ASSESSMENT: 1. An 89-year-old female fell sustaining injury to the right ribcage. 2. Profound dementia. 3. Atypical infiltrates with positive COVID-19 pneumonia. 4. Anemia of chronic disease. PLAN: 1. Continue current regimen. 2. Decadron. 3. Empiric Lovenox. 4. Continue Rocephin another day. 5. P.r.n. pain meds. 6. Followup x-ray in the morning. Long discussion with daughter regarding discharge planning. The good news is that she has not required any supplemental oxygen this time. LINDSEY DR: Nilda TID: [id number] CC: KALANI SHEFFIELD MD
[2020-11-17 18:45] VITALS: BP 157/58
[2020-11-17] MEDS: AZITHROMYCIN 500 MG in IV NORMAL SALINE 250ML 250 ML IV SCH (21:50)
[2020-11-18 00:58] VITALS: BP 130/40
[2020-11-18 05:58] VITALS: BP 116/57
--- NOTE | 2020-11-18 08:45 | RAD ---
EXAM: XR CHEST 1V 11/18/2020 5:45 AM CLINICAL INDICATION: Covid COMPARISON: Chest radiograph 11/15/2020 TECHNIQUE: AP upright view of the chest FINDINGS: The heart is normal in size. The lungs are adequately expanded. There are unchanged scatte red ill-defined opacities in the lungs. No pleural effusion or pneumothorax. IMPRESSION: Unchanged scattered ill-defined opacities consistent with atypical pneumonia. Electronically signed by: Cora Gilbert MD (11/18/2020 8:43 AM) [id number]
[2020-11-18] MEDS ORDERED: LACTOBACILLUS RHAMNOSUS GG 1 CAPSULE. PO SCH (09:00)
[2020-11-18] MEDS: DEXAMETHASONE SOD PHOS 4 MG/ML VIAL. IVP SCH (09:17)
[2020-11-18 11:02] VITALS: BP 149/51
--- NOTE | 2020-11-18 12:03 | EKG ---
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
--- NOTE | 2020-11-18 14:05 | NUR ---
Nursing note Attempted to call daughter at 1400 with no answer will continue to attempt contact.
--- NOTE | 2020-11-18 15:54 | NUR ---
Nursing note Pt discharged at 1505 via wheel chair accompanied by staff to door and daughter in car to transport pt home. daughter requested records this nurse informed her that she would need to go through medical records to obtain them. daughter refused to wear mask. pt and family given written and verbal instructions involving discharge with verbal statement of understanding received.
--- NOTE | 2020-11-18 21:05 | DS ---
DATE OF DISCHARGE: 11/18/2020 ATTENDING PHYSICIAN: Dr. Garcia FINAL DISCHARGE DIAGNOSES: 1. Fall, sustaining injury and right rib cage pain, improved. 2. Incidental finding of COVID-19 coronavirus infection. 3. Subtle infiltrate on x-rays without further symptoms. 4. 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 5. Anemia of chronic disease. 6. Incidental finding of a splenic infarct on CT scan. 7. 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 This has not been clinically relevant. HISTORY AND PHYSICAL: The patient has been cared for by her family. She had fallen week before. She had significant pain. Workup demonstrated the clot and aortic arches splenic infarct. No obstruction. She did have low-grade fevers and had a positive COVID-19 coronavirus swab. She was treated accordingly initially with IV antibiotics. This was discontinued. Regarding her COVID infection, She was asymptomatic with a room air saturation of 97%., normal white count and no symptoms of respiratory distress. She remained afebrile. COURSE IN THE HOSPITAL: She was treated for pain. We gave her empiric Decadron along with IV antibiotics, this was discontinued at time of discharge. She was doing better, in talking with the daughter and primary azure architect. We have decided to send her home with a prescription for prednisone 40 mg daily for the next week and then stop. Her other home meds are unchanged. They include the following meds: She will continue her [place], amlodipine, vitamin C, aspirin 81 mg daily, Namenda 10 mg daily, Zoloft 75 mg daily, omega 3 fish oil. In addition, I discussed the case with her PCP, Dr. Sheffield. It is reasonable, then to refer the patient and family for palliative care to help with managing her home. The patient was then discharged from our hospital in stable condition with explicit drug and followup care. Total discharge time spent [address]: Nilda TID: [id number] CC: KALANI SHEFFIELD MD
== END 2020-11-18 15:05 | disposition home or self-care (01) | DRG 913 ==
LOC: ER 15:14 → ICU 20:00 → LND 11-17 07:00
PROVIDERS: ADMIT Hospitalist; ATTEND Hospitalist
DX: S29.9XXA Unspecified injury of thorax, initial encounter (principal); U07.1 COVID-19; J12.82 Pneumonia due to coronavirus disease 2019; D63.8 Anemia in other chronic diseases classified elsewhere; D73.5 Infarction of spleen; E78.00 Pure hypercholesterolemia, unspecified; E78.5 Hyperlipidemia, unspecified; F01.50 Vascular dementia, unspecified severity, without behavioral disturbance, psychotic disturbance, mood disturbance, and anxiety; F02.80 Dementia in other diseases classified elsewhere, unspecified severity, without behavioral disturbance, psychotic disturbance, mood disturbance, and anxiety; I10 Essential (primary) hypertension; I25.10 Atherosclerotic heart disease of native coronary artery without angina pectoris; I48.0 Paroxysmal atrial fibrillation; F32.9 Major depressive disorder, single episode, unspecified; K21.9 Gastro-esophageal reflux disease without esophagitis; W01.0XXA Fall on same level from slipping, tripping and stumbling without subsequent striking against object, initial encounter; I25.2 Old myocardial infarction; Z51.5 Encounter for palliative care; Z79.82 Long term (current) use of aspirin; Z79.899 Other long term (current) drug therapy; Z87.440 Personal history of urinary (tract) infections; Z86.73 Personal history of transient ischemic attack (TIA), and cerebral infarction without residual deficits; Z90.49 Acquired absence of other specified parts of digestive tract; Y93.89 Activity, other specified; Y92.89 Other specified places as the place of occurrence of the external cause; Y99.8 Other external cause status
CPT/HCPCS: 36415; 51702; 71045; 71260; 74177; 80053; 81001; 83690; 84484; 85025; 87086; 93005; J0456; J0696; J1100; J1650; J3010; J7050; J7120; Q9967; U0003; 99285-25